=== PATIENT | female | born 1960 | race Caucasian/White ===

== ENCOUNTER 2017-10-05 10:35 | Inpatient (IN) | payer MEDICAID ==
[2017-10-05] VITALS (7 sets, daily range): BP systolic 76–99; BP diastolic 51–62
[~2017-10-05] VITALS: Ht 157.5 cm; Wt 60.0 kg
[~2017-10-05 10:35] MED LIST: ALBU18HF2 INH; ASPI81TA52 PO; ATOR80TA PO; CARV-49 PO; FENO48TA15 PO; FOLIC ACID 1MG PO; LISI-600 PO; MAGN133T PO; MORP10CA11 PO; MYCO250C46 PO; NITR0.4T51 SL; ONDA8TAB6 PO; PANT-47 PO; PRED10TA PO; SULF-14 PO; TACR0.5C20 PO; TACR1CAP28 PO; TAM75C PO; TICA90TA PO; VENL150C2 PO
[2017-10-05] MEDS ORDERED: ipratropium/albuterol 3ml nebule NEB ONE (10:40)
[2017-10-05] MEDS ORDERED: methylPREDNISolone sod succ 125mg/2ml vial IV ONE (10:40)
[2017-10-05 10:57] LABS: BASOPHILS % (AUTO) 0.2 % (0-1); EOSINOPHILS # (AUTO) 0.2 X10'3 (0-0.9); EOSINOPHILS % (AUTO) 1.1 % (0-6); HEMATOCRIT 31.7 % (35.0-45.0); HEMOGLOBIN 10.1 g/dl (12.0-16.0); LYMPHOCYTES # (AUTO) 1.9 X10'3 (1.1-4.8); LYMPHOCYTES % (AUTO) 13.3 % (21-51); MEAN CORPUSCULAR HEMOGLOBIN 27.2 PG (27.0-31.0); MEAN CORPUSCULAR HGB CONC 31.9 % (33.0-36.5); MEAN CORPUSCULAR VOLUME 85.3 FL (78-98); MONOCYTES # (AUTO) 0.4 X10'3 (0-0.9); MONOCYTES % (AUTO) 3.1 % (2-12); NEUTROPHILS # (AUTO) 11.7 X10'3 (1.8-7.7); NEUTROPHILS % (AUTO) 82.3 % (42-75); PLATELET COUNT 376 X10'3 (140-440); RED BLOOD COUNT 3.72 X10'6 (4.20-5.60); RED CELL DISTRIBUTION WIDTH 15.3 % (11.5-14.5); WHITE BLOOD COUNT 14.2 X10'3 (4.5-11.0)
[2017-10-05 11:17] LABS: ALANINE AMINOTRANSFERASE 20 U/L (12-78); ALBUMIN 2.7 G/DL (3.4-5.0); ALBUMIN/GLOBULIN RATIO 0.7 (1.1-1.5); ALKALINE PHOSPHATASE 68 IU/L (46-116); ANION GAP 5 (8-16); ASPARTATE AMINO TRANSFERASE 27 U/L (10-37); BILIRUBIN,TOTAL 0.2 MG/DL (0.1-1.0); BLOOD UREA NITROGEN 22 MG/DL (7-18); CALCIUM 8.9 MG/DL (8.5-10.1); CHLORIDE 100 MMOL/L (99-107); GLUCOSE 250 MG/DL (70-104); MICROCYTOSIS 1+; PLATELET ESTIMATE NORMAL; POTASSIUM 4.9 MMOL/L (3.5-5.1); SODIUM 141 MMOL/L (135-145); TOTAL CARBON DIOXIDE 35.7 MMOL/L (24-32); TOTAL CELLS COUNTED 100; TOTAL PROTEIN 6.7 G/DL (6.4-8.2); eGFR 57 ML/MIN
[2017-10-05 11:20] LABS: PARTIAL THROMBOPLASTIN TIME 23 SECONDS (22-32); PROTHROMBIN TIME 10.1 SECONDS (9.0-12.0)
[2017-10-05 11:31] LABS: ABG BASE EXCESS 7.2 mmol/L (-2.0-3.0); ABG HCO3 34.1 mmol/L (22.0-26.0); ABG OXYGEN SATURATION 97.3 % (95-98); ABG PH (T) 7.358 (7.350-7.450); ABG PO2 (T) 112.6 mmHg (83-108); ALLEN'S TEST Positive; FCOHb 0.3 % (0.5-1.5); FMetHb 0.3 % (0.3-1.12); FO2Hb 96.7 % (94-100); MINUTE VOLUME 11 L/min; RESPIRATORY RATE 14 b/min; TOTAL HEMOGLOBIN 10.2 G/dl (12.0-16.0)
[2017-10-05] MEDS ORDERED: ipratropium/albuterol 3ml nebule NEB PRN (12:10)
[2017-10-05] MEDS ORDERED: potassium Cl 40MEQ/NS 500ml 500 ML IV PRN ×2 (12:10)
[2017-10-05] MEDS ORDERED: potassium Cl 20 mEq SR tablet PO PRN ×2 (12:10)
[2017-10-05] MEDS ORDERED: acetaminophen 325mg tablet PO PRN (12:10)
[2017-10-05] MEDS ORDERED: HYDROcodone/acetaminophen 5mg/325mg tablet PO PRN (12:10)
[2017-10-05] MEDS: normal saline 1000ml 1,000 ML IV SCH (13:55)
[2017-10-05] MEDS: piperacillin/tazo 3.375gm/50ml 50 ML IV SCH ×2 (15:13→20:17)
[2017-10-05] MEDS: ipratropium/albuterol 3ml nebule NEB SCH ×2 (16:04→21:27)
[2017-10-05] MEDS: heparin, porcine 5000 units/ml vial SQ SCH (20:16)
[2017-10-05] MEDS: docusate sod 100mg capsule PO SCH (20:17)
[2017-10-05] MEDS ORDERED: mycophenolate mofetil 250mg capsule PO ONE (21:10)
[2017-10-05] MEDS ORDERED: tacrolimus anhydrous 1mg capsule PO ONE (21:10)
[2017-10-05] MEDS ORDERED: MORPHINE SULFATE PO ONE (21:20)
[2017-10-06] MEDS: piperacillin/tazo 3.375gm/50ml 50 ML IV SCH ×4 (01:33→20:15)
[2017-10-06] MEDS: ipratropium/albuterol 3ml nebule NEB SCH ×4 (02:38→21:29)
[2017-10-06 03:00] VITALS: BP 102/65
[2017-10-06 06:00] VITALS: BP 125/63
[2017-10-06 06:06] LABS: BASOPHILS % (AUTO) 0.2 % (0-1); EOSINOPHILS # (AUTO) 0.1 X10'3 (0-0.9); EOSINOPHILS % (AUTO) 1.2 % (0-6); HEMATOCRIT 24.9 % (35.0-45.0); HEMOGLOBIN 8.1 g/dl (12.0-16.0); LYMPHOCYTES # (AUTO) 1.2 X10'3 (1.1-4.8); LYMPHOCYTES % (AUTO) 13.5 % (21-51); MEAN CORPUSCULAR HEMOGLOBIN 27.5 PG (27.0-31.0); MEAN CORPUSCULAR HGB CONC 32.5 % (33.0-36.5); MEAN CORPUSCULAR VOLUME 84.6 FL (78-98); MEAN PLATELET VOLUME 8.2 FL (7.4-10.4); MONOCYTES # (AUTO) 0.5 X10'3 (0-0.9); MONOCYTES % (AUTO) 5.5 % (2-12); NEUTROPHILS # (AUTO) 6.8 X10'3 (1.8-7.7); NEUTROPHILS % (AUTO) 79.6 % (42-75); PLATELET COUNT 245 X10'3 (140-440); RED BLOOD COUNT 2.94 X10'6 (4.20-5.60); RED CELL DISTRIBUTION WIDTH 15.2 % (11.5-14.5); WHITE BLOOD COUNT 8.6 X10'3 (4.5-11.0)
[2017-10-06 06:26] LABS: ALANINE AMINOTRANSFERASE 22 U/L (12-78); ALBUMIN 2.2 G/DL (3.4-5.0); ALBUMIN/GLOBULIN RATIO 0.7 (1.1-1.5); ALKALINE PHOSPHATASE 44 IU/L (46-116); ANION GAP 6 (8-16); ASPARTATE AMINO TRANSFERASE 20 U/L (10-37); BILIRUBIN,TOTAL 0.3 MG/DL (0.1-1.0); BLOOD UREA NITROGEN 22 MG/DL (7-18); CALCIUM 8.2 MG/DL (8.5-10.1); CHLORIDE 106 MMOL/L (99-107); GLUCOSE 85 MG/DL (70-104); PHOSPHORUS 3.1 MG/DL (2.3-4.5); POTASSIUM 5.2 MMOL/L (3.5-5.1); SODIUM 143 MMOL/L (135-145); TOTAL CARBON DIOXIDE 30.7 MMOL/L (24-32); TOTAL PROTEIN 5.5 G/DL (6.4-8.2); eGFR 51 ML/MIN
[2017-10-06] MEDS: K and/or MAG REPLACEMENT MC SCH (08:00)
[2017-10-06] MEDS: heparin, porcine 5000 units/ml vial SQ SCH ×2 (08:04→20:00)
[2017-10-06] MEDS: mycophenolate mofetil 250mg capsule PO SCH ×2 (08:10→20:15)
[2017-10-06] MEDS: docusate sod 100mg capsule PO SCH ×2 (08:10→20:15)
[2017-10-06] MEDS: tacrolimus anhydrous 1mg capsule PO SCH ×2 (08:10→20:15)
[2017-10-06] MEDS: MORPHINE SULFATE PO SCH ×2 (08:54→20:16)
[2017-10-06] MEDS: normal saline 1000ml 1,000 ML IV SCH (10:29)
[2017-10-06 11:00] VITALS: BP 115/57
[2017-10-06 15:00] VITALS: BP 124/68
[2017-10-06] MEDS ORDERED: ondansetron 4mg rapidly disintigrating tab PO PRN (17:10)
[2017-10-06] MEDS ORDERED: nitroGLYCERIN 0.4mg SUBLingual tab SL PRN (17:10)
[2017-10-06] MEDS: lactobacillus rhamnosus 10,000 MMU CELLS/CAPSULE PO SCH (17:29)
[2017-10-06] MEDS ORDERED: albuterol 2.5 MG/3 ML nebule NEB PRN (17:30)
[2017-10-06] MEDS: MAGNESIUM OXIDE PO SCH ×2 (17:40→20:00)
[2017-10-06] MEDS: MAG AA CHELATE PO SCH ×2 (17:40→20:00)
[2017-10-06 19:00] VITALS: BP 93/76
[2017-10-06] MEDS ORDERED: mycophenolate mofetil 250mg capsule PO SCH (20:00)
[2017-10-06] MEDS ORDERED: tacrolimus anhydrous 1mg capsule PO SCH (20:00)
[2017-10-06] MEDS: carvedilol 6.25mg tablet PO SCH (20:15)
[2017-10-06] MEDS: ticagrelor 90mg tablet PO SCH (20:15)
[2017-10-06 23:00] VITALS: BP 126/70
[2017-10-07] MEDS: piperacillin/tazo 3.375gm/50ml 50 ML IV SCH ×4 (02:40→20:32)
[2017-10-07 03:00] VITALS: BP 114/73
[2017-10-07] MEDS: ipratropium/albuterol 3ml nebule NEB SCH ×6 (03:10→23:42)
[2017-10-07] MEDS: normal saline 1000ml 1,000 ML IV SCH (04:08)
[2017-10-07 06:00] VITALS: BP 142/67
[2017-10-07 06:59] LABS: BASOPHILS % (AUTO) 0.3 % (0-1); EOSINOPHILS # (AUTO) 0.1 X10'3 (0-0.9); EOSINOPHILS % (AUTO) 1.7 % (0-6); HEMOGLOBIN 8.1 g/dl (12.0-16.0); LYMPHOCYTES # (AUTO) 1.2 X10'3 (1.1-4.8); LYMPHOCYTES % (AUTO) 15.1 % (21-51); MEAN CORPUSCULAR HGB CONC 32.4 % (33.0-36.5); MEAN CORPUSCULAR VOLUME 83.3 FL (78-98); MEAN PLATELET VOLUME 8.6 FL (7.4-10.4); MONOCYTES # (AUTO) 0.6 X10'3 (0-0.9); MONOCYTES % (AUTO) 7.3 % (2-12); NEUTROPHILS # (AUTO) 5.8 X10'3 (1.8-7.7); NEUTROPHILS % (AUTO) 75.6 % (42-75); PLATELET COUNT 240 X10'3 (140-440); RED CELL DISTRIBUTION WIDTH 15.1 % (11.5-14.5); WHITE BLOOD COUNT 7.6 X10'3 (4.5-11.0)
[2017-10-07 07:35] LABS: ALANINE AMINOTRANSFERASE 24 U/L (12-78); ALBUMIN 2.3 G/DL (3.4-5.0); ALBUMIN/GLOBULIN RATIO 0.7 (1.1-1.5); ALKALINE PHOSPHATASE 42 IU/L (46-116); ANION GAP 9 (8-16); ASPARTATE AMINO TRANSFERASE 26 U/L (10-37); BILIRUBIN,TOTAL 0.3 MG/DL (0.1-1.0); BLOOD UREA NITROGEN 13 MG/DL (7-18); CALCIUM 8.3 MG/DL (8.5-10.1); CHLORIDE 106 MMOL/L (99-107); GLUCOSE 83 MG/DL (70-104); MAGNESIUM 1.6 MG/DL (1.5-2.4); PHOSPHORUS 1.9 MG/DL (2.3-4.5); POTASSIUM 3.9 MMOL/L (3.5-5.1); SODIUM 142 MMOL/L (135-145); TOTAL CARBON DIOXIDE 27.1 MMOL/L (24-32); TOTAL PROTEIN 5.6 G/DL (6.4-8.2); eGFR 57 ML/MIN
[2017-10-07] MEDS: MAG AA CHELATE PO SCH ×2 (08:00→20:00)
[2017-10-07] MEDS: MAGNESIUM OXIDE PO SCH ×2 (08:00→20:00)
[2017-10-07] MEDS: K and/or MAG REPLACEMENT MC SCH (08:00)
[2017-10-07] MEDS ORDERED: sulfamethoxazole/trimethoprim SS (400mg/80mg) tablet (single-strength) PO SCH (08:00)
[2017-10-07] MEDS: lisinopril 2.5mg tablet PO SCH (08:39)
[2017-10-07] MEDS: lactobacillus rhamnosus 10,000 MMU CELLS/CAPSULE PO SCH ×2 (08:39→17:32)
[2017-10-07] MEDS: docusate sod 100mg capsule PO SCH ×2 (08:39→20:30)
[2017-10-07] MEDS: pantoprazole 40mg Tablet.DR PO SCH (08:39)
[2017-10-07] MEDS: fenofibrate 48mg tablet PO SCH (08:40)
[2017-10-07] MEDS: tacrolimus anhydrous 1mg capsule PO SCH ×2 (08:40→20:31)
[2017-10-07] MEDS: mycophenolate mofetil 250mg capsule PO SCH ×2 (08:40→20:32)
[2017-10-07] MEDS: atorvastatin 20mg tablet PO SCH (08:40)
[2017-10-07] MEDS: venlafaxine XR 75mg capsule (Q24H) PO SCH (08:40)
[2017-10-07] MEDS: ticagrelor 90mg tablet PO SCH ×2 (08:40→20:29)
[2017-10-07] MEDS: carvedilol 6.25mg tablet PO SCH ×2 (08:40→20:30)
[2017-10-07] MEDS: tacrolimus anhydrous 0.5mg capsule PO SCH (08:51)
[2017-10-07] MEDS: ondansetron/PF 4mg/2ml inj IV PRN (08:52)
[2017-10-07] MEDS: sulfamethoxazole/trimethoprim DS (800/160mg) tablet PO SCH (09:36)
[2017-10-07] MEDS: MORPHINE SULFATE PO SCH ×2 (09:36→20:31)
[2017-10-07 11:00] VITALS: BP 120/82
[2017-10-07 15:00] VITALS: BP 106/74
[2017-10-07 19:00] VITALS: BP 137/63
[2017-10-07 23:00] VITALS: BP 98/60
[2017-10-08] MEDS: piperacillin/tazo 3.375gm/50ml 50 ML IV SCH ×4 (02:05→20:48)
[2017-10-08 03:00] VITALS: BP 90/57
[2017-10-08] MEDS: ipratropium/albuterol 3ml nebule NEB SCH ×6 (03:00→23:37)
[2017-10-08] MEDS: normal saline 1000ml 1,000 ML IV SCH (05:38)
[2017-10-08 06:00] VITALS: BP 139/75
[2017-10-08 07:38] LABS: BASOPHILS % (AUTO) 0 % (0-1); EOSINOPHILS # (AUTO) 0.3 X10'3 (0-0.9); EOSINOPHILS % (AUTO) 2.5 % (0-6); HEMATOCRIT 30.7 % (35.0-45.0); HEMOGLOBIN 9.7 g/dl (12.0-16.0); LYMPHOCYTES # (AUTO) 0.9 X10'3 (1.1-4.8); LYMPHOCYTES % (AUTO) 8.2 % (21-51); MEAN CORPUSCULAR HEMOGLOBIN 26.8 PG (27.0-31.0); MEAN CORPUSCULAR HGB CONC 31.5 % (33.0-36.5); MEAN CORPUSCULAR VOLUME 85.1 FL (78-98); MEAN PLATELET VOLUME 8.1 FL (7.4-10.4); MONOCYTES # (AUTO) 0.4 X10'3 (0-0.9); MONOCYTES % (AUTO) 4.1 % (2-12); NEUTROPHILS # (AUTO) 8.8 X10'3 (1.8-7.7); NEUTROPHILS % (AUTO) 85.2 % (42-75); PLATELET COUNT 292 X10'3 (140-440); RED BLOOD COUNT 3.61 X10'6 (4.20-5.60); RED CELL DISTRIBUTION WIDTH 15.1 % (11.5-14.5); WHITE BLOOD COUNT 10.4 X10'3 (4.5-11.0)
[2017-10-08] MEDS: ondansetron/PF 4mg/2ml inj IV PRN (07:43)
[2017-10-08] MEDS: MAG AA CHELATE PO SCH ×2 (08:00→20:00)
[2017-10-08] MEDS: docusate sod 100mg capsule PO SCH ×2 (08:00→20:00)
[2017-10-08] MEDS: MAGNESIUM OXIDE PO SCH ×2 (08:00→20:00)
[2017-10-08] MEDS: K and/or MAG REPLACEMENT MC SCH (08:00)
[2017-10-08 08:04] LABS: ALANINE AMINOTRANSFERASE 27 U/L (12-78); ALBUMIN 2.5 G/DL (3.4-5.0); ALBUMIN/GLOBULIN RATIO 0.7 (1.1-1.5); ALKALINE PHOSPHATASE 47 IU/L (46-116); ANION GAP 7 (8-16); ASPARTATE AMINO TRANSFERASE 29 U/L (10-37); BILIRUBIN,TOTAL 0.3 MG/DL (0.1-1.0); BLOOD UREA NITROGEN 12 MG/DL (7-18); BUN/CREATININE RATIO 13.3 (6.6-38.0); CALCIUM 8.5 MG/DL (8.5-10.1); CHLORIDE 103 MMOL/L (99-107); GLUCOSE 112 MG/DL (70-104); MAGNESIUM 1.7 MG/DL (1.5-2.4); PHOSPHORUS 1.9 MG/DL (2.3-4.5); POTASSIUM 3.4 MMOL/L (3.5-5.1); SODIUM 140 MMOL/L (135-145); TOTAL CARBON DIOXIDE 30.5 MMOL/L (24-32); TOTAL PROTEIN 6.3 G/DL (6.4-8.2); eGFR 64 ML/MIN
[2017-10-08] MEDS: atorvastatin 20mg tablet PO SCH (08:14)
[2017-10-08] MEDS: mycophenolate mofetil 250mg capsule PO SCH ×2 (08:14→20:48)
[2017-10-08] MEDS: carvedilol 6.25mg tablet PO SCH ×2 (08:15→20:48)
[2017-10-08] MEDS: tacrolimus anhydrous 1mg capsule PO SCH ×2 (08:15→20:47)
[2017-10-08] MEDS: tacrolimus anhydrous 0.5mg capsule PO SCH (08:16)
[2017-10-08] MEDS: lactobacillus rhamnosus 10,000 MMU CELLS/CAPSULE PO SCH ×2 (08:17→17:01)
[2017-10-08] MEDS: pantoprazole 40mg Tablet.DR PO SCH (08:18)
[2017-10-08] MEDS: fenofibrate 48mg tablet PO SCH (08:18)
[2017-10-08] MEDS: lisinopril 2.5mg tablet PO SCH (08:19)
[2017-10-08] MEDS: venlafaxine XR 75mg capsule (Q24H) PO SCH (08:20)
[2017-10-08] MEDS: predniSONE 20 mg tablet PO SCH (08:21)
[2017-10-08] MEDS: sulfamethoxazole/trimethoprim DS (800/160mg) tablet PO SCH (08:22)
[2017-10-08] MEDS: MORPHINE SULFATE PO SCH ×2 (08:37→20:49)
[2017-10-08] MEDS: ticagrelor 90mg tablet PO SCH ×2 (08:37→20:48)
[2017-10-08 11:00] VITALS: BP 125/68
[2017-10-08 15:00] VITALS: BP 104/62
[2017-10-08] MEDS ORDERED: potassium Cl 20 mEq SR tablet PO PRN (16:15)
[2017-10-08] MEDS ORDERED: potassium Cl 40MEQ/NS 500ml 500 ML IV PRN ×2 (16:15)
[2017-10-08] MEDS: potassium Cl 20 mEq SR tablet PO PRN ×2 (17:01→20:48)
[2017-10-08] MEDS: Protein Smoothie (high protein) 240ml (8oz) cup PO SCH (17:57)
[2017-10-08 19:00] VITALS: BP 132/72
[2017-10-08 23:00] VITALS: BP 121/73
[2017-10-09] MEDS: normal saline 1000ml 1,000 ML IV SCH (00:26)
[2017-10-09] MEDS: piperacillin/tazo 3.375gm/50ml 50 ML IV SCH ×2 (01:57→08:20)
[2017-10-09 03:00] VITALS: BP 124/74
[2017-10-09] MEDS: ipratropium/albuterol 3ml nebule NEB SCH ×4 (03:00→15:35)
[2017-10-09 05:16] LABS: BASOPHILS % (AUTO) 0.3 % (0-1); EOSINOPHILS # (AUTO) 0.2 X10'3 (0-0.9); EOSINOPHILS % (AUTO) 2.5 % (0-6); HEMATOCRIT 26.9 % (35.0-45.0); HEMOGLOBIN 8.7 g/dl (12.0-16.0); LYMPHOCYTES # (AUTO) 1.3 X10'3 (1.1-4.8); LYMPHOCYTES % (AUTO) 18.9 % (21-51); MEAN CORPUSCULAR HEMOGLOBIN 27.1 PG (27.0-31.0); MEAN CORPUSCULAR HGB CONC 32.3 % (33.0-36.5); MONOCYTES # (AUTO) 0.6 X10'3 (0-0.9); MONOCYTES % (AUTO) 8.8 % (2-12); NEUTROPHILS # (AUTO) 4.8 X10'3 (1.8-7.7); NEUTROPHILS % (AUTO) 69.5 % (42-75); PLATELET COUNT 276 X10'3 (140-440); RED CELL DISTRIBUTION WIDTH 15.2 % (11.5-14.5); WHITE BLOOD COUNT 6.9 X10'3 (4.5-11.0)
[2017-10-09 05:45] LABS: ALANINE AMINOTRANSFERASE 25 U/L (12-78); ALBUMIN 2.4 G/DL (3.4-5.0); ALBUMIN/GLOBULIN RATIO 0.6 (1.1-1.5); ALKALINE PHOSPHATASE 41 IU/L (46-116); ANION GAP 4 (8-16); ASPARTATE AMINO TRANSFERASE 24 U/L (10-37); BILIRUBIN,TOTAL 0.2 MG/DL (0.1-1.0); BLOOD UREA NITROGEN 8 MG/DL (7-18); CALCIUM 8.5 MG/DL (8.5-10.1); CHLORIDE 106 MMOL/L (99-107); GLUCOSE 78 MG/DL (70-104); MAGNESIUM 1.5 MG/DL (1.5-2.4); PHOSPHORUS 1.3 MG/DL (2.3-4.5); POTASSIUM 4.7 MMOL/L (3.5-5.1); SODIUM 141 MMOL/L (135-145); TOTAL CARBON DIOXIDE 30.6 MMOL/L (24-32); TOTAL PROTEIN 6.1 G/DL (6.4-8.2); eGFR 74 ML/MIN
[2017-10-09 07:00] VITALS: BP 132/72
[2017-10-09] MEDS: Protein Smoothie (high protein) 240ml (8oz) cup PO SCH ×2 (08:00→13:00)
[2017-10-09] MEDS: K and/or MAG REPLACEMENT MC SCH (08:00)
[2017-10-09] MEDS: MORPHINE SULFATE PO SCH (08:19)
[2017-10-09] MEDS: tacrolimus anhydrous 0.5mg capsule PO SCH (08:20)
[2017-10-09] MEDS: atorvastatin 20mg tablet PO SCH (08:20)
[2017-10-09] MEDS: sulfamethoxazole/trimethoprim DS (800/160mg) tablet PO SCH (08:20)
[2017-10-09] MEDS: venlafaxine XR 75mg capsule (Q24H) PO SCH (08:20)
[2017-10-09] MEDS: carvedilol 6.25mg tablet PO SCH (08:21)
[2017-10-09] MEDS: pantoprazole 40mg Tablet.DR PO SCH (08:21)
[2017-10-09] MEDS: predniSONE 20 mg tablet PO SCH (08:21)
[2017-10-09] MEDS: lisinopril 2.5mg tablet PO SCH (08:21)
[2017-10-09] MEDS: fenofibrate 48mg tablet PO SCH (08:21)
[2017-10-09] MEDS: mycophenolate mofetil 250mg capsule PO SCH (08:21)
[2017-10-09] MEDS: docusate sod 100mg capsule PO SCH (08:21)
[2017-10-09] MEDS: lactobacillus rhamnosus 10,000 MMU CELLS/CAPSULE PO SCH (08:21)
[2017-10-09] MEDS: ticagrelor 90mg tablet PO SCH (08:21)
[2017-10-09] MEDS: MAG AA CHELATE PO SCH (08:22)
[2017-10-09] MEDS: tacrolimus anhydrous 1mg capsule PO SCH (08:22)
[2017-10-09] MEDS: MAGNESIUM OXIDE PO SCH (08:22)
[2017-10-09 11:00] VITALS: BP 104/68
[2017-10-09 15:00] VITALS: BP 117/65
[2017-10-09] MEDS ORDERED: PRED20TA PO (15:12)
== END 2017-10-09 17:55 | disposition home or self-care (01) | DRG 133 ==
LOC: ER 10:35 → ED HOLD 12:08 → EDBEDREQ 15:53 → PCU 3S 16:30
PROVIDERS: ADMIT Internal Medicine Critical Care Medicine; ATTEND Internal Medicine Critical Care Medicine
PROC: 5A09357 Assistance with Respiratory Ventilation, Less than 24 Consecutive Hours, Continuous Positive Airway Pressure (ICD-10-PCS; principal; 2017-10-05)
DX: J96.20 Acute and chronic respiratory failure, unspecified whether with hypoxia or hypercapnia (principal); J84.10 Pulmonary fibrosis, unspecified; Z94.2 Lung transplant status; J43.9 Emphysema, unspecified; G89.29 Other chronic pain; M54.9 Dorsalgia, unspecified; R04.2 Hemoptysis; I10 Essential (primary) hypertension; I25.10 Atherosclerotic heart disease of native coronary artery without angina pectoris; Z79.82 Long term (current) use of aspirin; Z88.1 Allergy status to other antibiotic agents; Z79.899 Other long term (current) drug therapy; Z98.61 Coronary angioplasty status
CPT/HCPCS: 36415; 36600; 71045; 80053; 82803; 83605; 83735; 83880; 84100; 84145; 84484; 85018; 85025; 85610; 85730; 86885; 86900; 86901; 87040; 87070; 93005; 94640; 94660; 94760; 96374; 97110; 97116; 97161; 97530; 99291; A6212; A6213; J1644; J2405; J2543; J2930; J2997; J7030; J7507; J7512; J7517

== ENCOUNTER 2017-10-11 13:41 | Inpatient (IN) | payer MEDICAID ==
[~2017-10-11] VITALS: Ht 144.8 cm; Wt 30.0 kg
[~2017-10-11 13:41] MED LIST changes: -PRED10TA PO; +PRED20TA PO; -TAM75C PO
[2017-10-11] MEDS ORDERED: methylPREDNISolone sod succ 125mg/2ml vial IV ONE (14:15)
[2017-10-11] MEDS ORDERED: ipratropium/albuterol 3ml nebule NEB ONE (14:15)
[2017-10-11 14:54] LABS: BASOPHILS % (AUTO) 0.1 % (0-1); EOSINOPHILS % (AUTO) 0 % (0-6); HEMATOCRIT 32.7 % (35.0-45.0); HEMOGLOBIN 10.8 g/dl (12.0-16.0); LYMPHOCYTES # (AUTO) 0.7 X10'3 (1.1-4.8); LYMPHOCYTES % (AUTO) 3.2 % (21-51); MEAN CORPUSCULAR HEMOGLOBIN 27.7 PG (27.0-31.0); MEAN CORPUSCULAR HGB CONC 33.1 % (33.0-36.5); MEAN CORPUSCULAR VOLUME 83.7 FL (78-98); MEAN PLATELET VOLUME 8.3 FL (7.4-10.4); MONOCYTES # (AUTO) 0.4 X10'3 (0-0.9); MONOCYTES % (AUTO) 1.8 % (2-12); NEUTROPHILS # (AUTO) 20.8 X10'3 (1.8-7.7); NEUTROPHILS % (AUTO) 94.9 % (42-75); PLATELET COUNT 338 X10'3 (140-440); RED BLOOD COUNT 3.91 X10'6 (4.20-5.60); RED CELL DISTRIBUTION WIDTH 15.9 % (11.5-14.5)
[2017-10-11 15:19] LABS: ALANINE AMINOTRANSFERASE 30 U/L (12-78); ALBUMIN 2.9 G/DL (3.4-5.0); ALBUMIN/GLOBULIN RATIO 0.7 (1.1-1.5); ALKALINE PHOSPHATASE 60 IU/L (46-116); ANION GAP 9 (8-16); ASPARTATE AMINO TRANSFERASE 27 U/L (10-37); BILIRUBIN,TOTAL 0.3 MG/DL (0.1-1.0); BLOOD UREA NITROGEN 16 MG/DL (7-18); BUN/CREATININE RATIO 18.6 (6.6-38.0); CHLORIDE 98 MMOL/L (99-107); CREATININE 0.86 MG/DL (0.40-0.90); GLUCOSE 129 MG/DL (70-104); POTASSIUM 4.4 MMOL/L (3.5-5.1); SODIUM 137 MMOL/L (135-145); TOTAL CARBON DIOXIDE 29.7 MMOL/L (24-32); TOTAL PROTEIN 7.2 G/DL (6.4-8.2); eGFR 68 ML/MIN
[2017-10-11 15:20] LABS: PARTIAL THROMBOPLASTIN TIME 32 SECONDS (22-32); PROTHROMBIN TIME 10.8 SECONDS (9.0-12.0)
[2017-10-11] MEDS ORDERED: IPRA3AMP IH (16:13)
[2017-10-11] MEDS ORDERED: nitroGLYCERIN 0.4mg SUBLingual tab SL PRN (16:25)
[2017-10-11] MEDS ORDERED: ondansetron 4mg rapidly disintigrating tab PO PRN (16:25)
[2017-10-11] MEDS ORDERED: mag hydrox/Alum hydrox/simeth 30ml oral suspension PO PRN (16:30)
[2017-10-11] MEDS ORDERED: ondansetron/PF 4mg/2ml inj IV PRN (16:30)
[2017-10-11] MEDS ORDERED: acetaminophen 325mg tablet PO PRN (16:30)
[2017-10-11] MEDS ORDERED: magnesium hydroxide 30ml (MOM) UD suspension PO PRN (16:30)
[2017-10-11] MEDS ORDERED: levoFLOXACIN-Levaquin 250mg/D5 50 ML IV SCH (16:47)
[2017-10-11] MEDS ORDERED: levoFLOXACIN-Levaquin 250mg/D5 50 ML IV ONE (16:53)
[2017-10-11 17:11] LABS: ABG BASE EXCESS 3.7 mmol/L (-2.0-3.0); ABG HCO3 28.6 mmol/L (22.0-26.0); ABG OXYGEN SATURATION 97.2 % (95-98); ABG PCO2 (T) 44.8 mmHg (32.0-45.0); ABG PH (T) 7.423 (7.350-7.450); ABG PO2 (T) 100.8 mmHg (83-108); FCOHb 0.4 % (0.5-1.5); FLOW 4 L/min; FMetHb 0.3 % (0.3-1.12); FO2Hb 96.5 % (94-100)
[2017-10-11 17:27] LABS: MAGNESIUM 1.6 MG/DL (1.5-2.4); PHOSPHORUS 2.7 MG/DL (2.3-4.5)
[2017-10-11 19:00] VITALS: BP 128/80
[2017-10-11] MEDS ORDERED: MAGNESIUM OXIDE PO SCH (20:00)
[2017-10-11] MEDS ORDERED: MAG AA CHELATE PO SCH (20:00)
[2017-10-11] MEDS: ticagrelor 90mg tablet PO SCH (20:27)
[2017-10-11] MEDS: methylPREDNISolone sod succ/PF 40mg inj. IV SCH (20:27)
[2017-10-11] MEDS: mycophenolate mofetil 250mg capsule PO SCH (20:28)
[2017-10-11] MEDS: carvedilol 6.25mg tablet PO SCH (20:28)
[2017-10-11] MEDS: tacrolimus anhydrous 1mg capsule PO SCH (20:29)
[2017-10-11] MEDS: MORPHINE SULFATE 10 MG PO SCH (20:34)
[2017-10-11 23:00] VITALS: BP 96/62
[2017-10-12 02:00] VITALS: BP 102/66
[2017-10-12 06:00] VITALS: BP 132/76
[2017-10-12] MEDS: levoFLOXACIN-Levaquin 250mg/D5 50 ML IV SCH (08:40)
[2017-10-12] MEDS: methylPREDNISolone sod succ/PF 40mg inj. IV SCH ×2 (08:50→20:30)
[2017-10-12] MEDS: tacrolimus anhydrous 1mg capsule PO SCH ×2 (08:51→20:30)
[2017-10-12] MEDS: venlafaxine XR 75mg capsule (Q24H) PO SCH (08:51)
[2017-10-12] MEDS: tacrolimus anhydrous 0.5mg capsule PO SCH (08:51)
[2017-10-12] MEDS: atorvastatin 20mg tablet PO SCH (08:51)
[2017-10-12] MEDS: mycophenolate mofetil 250mg capsule PO SCH ×2 (08:52→20:30)
[2017-10-12] MEDS: ticagrelor 90mg tablet PO SCH ×2 (08:52→20:29)
[2017-10-12] MEDS: lisinopril 2.5mg tablet PO SCH (08:52)
[2017-10-12] MEDS: carvedilol 6.25mg tablet PO SCH ×2 (08:52→20:33)
[2017-10-12] MEDS: aspirin 81mg tablet.DR PO SCH (08:52)
[2017-10-12] MEDS: fenofibrate 48mg tablet PO SCH (08:53)
[2017-10-12] MEDS: MORPHINE SULFATE 10 MG PO SCH ×2 (08:53→20:31)
[2017-10-12] MEDS: pantoprazole 40mg Tablet.DR PO SCH (08:53)
[2017-10-12] MEDS: albuterol 2.5 MG/3 ML nebule NEB PRN ×3 (09:02→20:37)
[2017-10-12 09:30] LABS: BASOPHILS % (AUTO) 0 % (0-1); EOSINOPHILS # (AUTO) 0.1 X10'3 (0-0.9); EOSINOPHILS % (AUTO) 0.8 % (0-6); HEMATOCRIT 30.1 % (35.0-45.0); HEMOGLOBIN 9.8 g/dl (12.0-16.0); LYMPHOCYTES # (AUTO) 0.9 X10'3 (1.1-4.8); LYMPHOCYTES % (AUTO) 7.7 % (21-51); MEAN CORPUSCULAR HEMOGLOBIN 27.6 PG (27.0-31.0); MEAN CORPUSCULAR HGB CONC 32.6 % (33.0-36.5); MEAN CORPUSCULAR VOLUME 84.7 FL (78-98); MEAN PLATELET VOLUME 9.1 FL (7.4-10.4); MONOCYTES # (AUTO) 0.3 X10'3 (0-0.9); MONOCYTES % (AUTO) 2.2 % (2-12); NEUTROPHILS # (AUTO) 10.7 X10'3 (1.8-7.7); NEUTROPHILS % (AUTO) 89.3 % (42-75); PLATELET COUNT 385 X10'3 (140-440); RED BLOOD COUNT 3.56 X10'6 (4.20-5.60); RED CELL DISTRIBUTION WIDTH 15.6 % (11.5-14.5)
[2017-10-12 10:15] LABS: ALANINE AMINOTRANSFERASE 32 U/L (12-78); ALBUMIN 2.8 G/DL (3.4-5.0); ALBUMIN/GLOBULIN RATIO 0.6 (1.1-1.5); ALKALINE PHOSPHATASE 62 IU/L (46-116); BILIRUBIN,TOTAL 0.3 MG/DL (0.1-1.0); BLOOD UREA NITROGEN 28 MG/DL (7-18); BUN/CREATININE RATIO 24.3 (6.6-38.0); CALCIUM 9.1 MG/DL (8.5-10.1); CHLORIDE 99 MMOL/L (99-107); CREATININE 1.15 MG/DL (0.40-0.90); GLUCOSE 190 MG/DL (70-104); TOTAL CARBON DIOXIDE 33.6 MMOL/L (24-32); TOTAL PROTEIN 7.3 G/DL (6.4-8.2); eGFR 48 ML/MIN
[2017-10-12 10:16] LABS: ANION GAP 6 (8-16); ASPARTATE AMINO TRANSFERASE 26 U/L (10-37); POTASSIUM 4.7 MMOL/L (3.5-5.1); SODIUM 139 MMOL/L (135-145)
[2017-10-12 11:00] VITALS: BP 111/69
[2017-10-12] MEDS: Protein Shake (high protein) 240ml (8oz) cup PO SCH ×2 (13:00→18:00)
[2017-10-12] MEDS: gabapentin 300mg capsule PO SCH ×2 (14:27→20:30)
[2017-10-12 15:00] VITALS: BP 96/63
[2017-10-12] MEDS: lactobacillus rhamnosus 10,000 MMU CELLS/CAPSULE PO SCH (17:25)
[2017-10-12 19:00] VITALS: BP 121/67
[2017-10-12] MEDS: valacyclovir 500mg tablet PO SCH (20:48)
[2017-10-12 23:00] VITALS: BP 128/65
[2017-10-13 03:00] VITALS: BP 111/71
[2017-10-13] MEDS: albuterol 2.5 MG/3 ML nebule NEB PRN ×2 (03:04→16:39)
[2017-10-13 06:00] VITALS: BP 111/67
[2017-10-13] MEDS: levoFLOXACIN-Levaquin 250mg/D5 50 ML IV SCH (08:33)
[2017-10-13] MEDS: methylPREDNISolone sod succ/PF 40mg inj. IV SCH ×2 (08:35→19:39)
[2017-10-13] MEDS: Protein Shake (high protein) 240ml (8oz) cup PO SCH ×3 (08:35→18:00)
[2017-10-13] MEDS: fenofibrate 48mg tablet PO SCH (08:42)
[2017-10-13] MEDS: MORPHINE SULFATE 10 MG PO SCH ×2 (08:42→19:49)
[2017-10-13] MEDS: venlafaxine XR 75mg capsule (Q24H) PO SCH (08:43)
[2017-10-13] MEDS: ticagrelor 90mg tablet PO SCH ×2 (08:43→19:39)
[2017-10-13] MEDS: lactobacillus rhamnosus 10,000 MMU CELLS/CAPSULE PO SCH (08:43)
[2017-10-13] MEDS: tacrolimus anhydrous 0.5mg capsule PO SCH (08:43)
[2017-10-13] MEDS: atorvastatin 20mg tablet PO SCH (08:43)
[2017-10-13] MEDS: aspirin 81mg tablet.DR PO SCH (08:43)
[2017-10-13] MEDS: pantoprazole 40mg Tablet.DR PO SCH (08:43)
[2017-10-13] MEDS: valacyclovir 500mg tablet PO SCH ×2 (08:43→19:38)
[2017-10-13] MEDS: mycophenolate mofetil 250mg capsule PO SCH ×2 (08:43→19:39)
[2017-10-13] MEDS: gabapentin 300mg capsule PO SCH ×2 (08:43→19:36)
[2017-10-13] MEDS: tacrolimus anhydrous 1mg capsule PO SCH ×2 (08:44→19:38)
[2017-10-13] MEDS: lisinopril 2.5mg tablet PO SCH (08:44)
[2017-10-13] MEDS: carvedilol 6.25mg tablet PO SCH ×2 (08:44→19:39)
[2017-10-13 09:50] LABS: BASOPHILS % (AUTO) 0 % (0-1); EOSINOPHILS # (AUTO) 0.2 X10'3 (0-0.9); EOSINOPHILS % (AUTO) 1.2 % (0-6); HEMOGLOBIN 8.9 g/dl (12.0-16.0); LYMPHOCYTES # (AUTO) 0.8 X10'3 (1.1-4.8); LYMPHOCYTES % (AUTO) 4.4 % (21-51); MEAN CORPUSCULAR HEMOGLOBIN 27.7 PG (27.0-31.0); MEAN CORPUSCULAR HGB CONC 33.1 % (33.0-36.5); MEAN CORPUSCULAR VOLUME 83.8 FL (78-98); MEAN PLATELET VOLUME 8.6 FL (7.4-10.4); MONOCYTES # (AUTO) 0.6 X10'3 (0-0.9); MONOCYTES % (AUTO) 3.1 % (2-12); NEUTROPHILS # (AUTO) 17.1 X10'3 (1.8-7.7); NEUTROPHILS % (AUTO) 91.3 % (42-75); PLATELET COUNT 329 X10'3 (140-440); RED BLOOD COUNT 3.22 X10'6 (4.20-5.60); RED CELL DISTRIBUTION WIDTH 16.1 % (11.5-14.5); WHITE BLOOD COUNT 18.8 X10'3 (4.5-11.0)
[2017-10-13 10:01] LABS: ALANINE AMINOTRANSFERASE 23 U/L (12-78); ALBUMIN 2.6 G/DL (3.4-5.0); ALBUMIN/GLOBULIN RATIO 0.7 (1.1-1.5); ALKALINE PHOSPHATASE 51 IU/L (46-116); ANION GAP 5 (8-16); ASPARTATE AMINO TRANSFERASE 21 U/L (10-37); BILIRUBIN,TOTAL 0.1 MG/DL (0.1-1.0); BLOOD UREA NITROGEN 33 MG/DL (7-18); BUN/CREATININE RATIO 33.3 (6.6-38.0); CALCIUM 9.2 MG/DL (8.5-10.1); CHLORIDE 102 MMOL/L (99-107); CREATININE 0.99 MG/DL (0.40-0.90); GLUCOSE 134 MG/DL (70-104); POTASSIUM 5.1 MMOL/L (3.5-5.1); SODIUM 140 MMOL/L (135-145); TOTAL CARBON DIOXIDE 32.6 MMOL/L (24-32); TOTAL PROTEIN 6.6 G/DL (6.4-8.2); eGFR 58 ML/MIN
[2017-10-13 15:00] VITALS: BP 92/55
[2017-10-13 19:00] VITALS: BP 130/73
[2017-10-13 23:00] VITALS: BP 135/75
[2017-10-14 03:00] VITALS: BP 126/77
[2017-10-14 05:32] LABS: BASOPHILS % (AUTO) 0.1 % (0-1); EOSINOPHILS # (AUTO) 0.2 X10'3 (0-0.9); EOSINOPHILS % (AUTO) 1.2 % (0-6); HEMATOCRIT 25.9 % (35.0-45.0); HEMOGLOBIN 8.6 g/dl (12.0-16.0); LYMPHOCYTES # (AUTO) 0.8 X10'3 (1.1-4.8); LYMPHOCYTES % (AUTO) 5.7 % (21-51); MEAN CORPUSCULAR HEMOGLOBIN 27.8 PG (27.0-31.0); MEAN CORPUSCULAR HGB CONC 33.3 % (33.0-36.5); MEAN CORPUSCULAR VOLUME 83.3 FL (78-98); MEAN PLATELET VOLUME 8.2 FL (7.4-10.4); MONOCYTES # (AUTO) 0.6 X10'3 (0-0.9); MONOCYTES % (AUTO) 3.9 % (2-12); NEUTROPHILS # (AUTO) 12.6 X10'3 (1.8-7.7); NEUTROPHILS % (AUTO) 89.1 % (42-75); PLATELET COUNT 349 X10'3 (140-440); RED BLOOD COUNT 3.11 X10'6 (4.20-5.60); RED CELL DISTRIBUTION WIDTH 15.7 % (11.5-14.5); WHITE BLOOD COUNT 14.1 X10'3 (4.5-11.0)
[2017-10-14 06:26] LABS: ALANINE AMINOTRANSFERASE 21 U/L (12-78); ALBUMIN 2.6 G/DL (3.4-5.0); ALBUMIN/GLOBULIN RATIO 0.7 (1.1-1.5); ALKALINE PHOSPHATASE 54 IU/L (46-116); ANION GAP 2 (8-16); ASPARTATE AMINO TRANSFERASE 20 U/L (10-37); BILIRUBIN,TOTAL 0.1 MG/DL (0.1-1.0); BLOOD UREA NITROGEN 28 MG/DL (7-18); CALCIUM 9.5 MG/DL (8.5-10.1); CHLORIDE 102 MMOL/L (99-107); GLUCOSE 119 MG/DL (70-104); POTASSIUM 5.5 MMOL/L (3.5-5.1); SODIUM 140 MMOL/L (135-145); TOTAL CARBON DIOXIDE 36.1 MMOL/L (24-32); TOTAL PROTEIN 6.6 G/DL (6.4-8.2); eGFR 74 ML/MIN
[2017-10-14 07:00] VITALS: BP 133/80
[2017-10-14] MEDS: aspirin 81mg tablet.DR PO SCH (08:14)
[2017-10-14] MEDS: fenofibrate 48mg tablet PO SCH (08:14)
[2017-10-14] MEDS: atorvastatin 20mg tablet PO SCH (08:14)
[2017-10-14] MEDS: lisinopril 2.5mg tablet PO SCH (08:14)
[2017-10-14] MEDS: gabapentin 300mg capsule PO SCH ×2 (08:14→20:02)
[2017-10-14] MEDS: carvedilol 6.25mg tablet PO SCH ×2 (08:15→20:02)
[2017-10-14] MEDS: ticagrelor 90mg tablet PO SCH ×2 (08:15→20:02)
[2017-10-14] MEDS: pantoprazole 40mg Tablet.DR PO SCH (08:15)
[2017-10-14] MEDS: valacyclovir 500mg tablet PO SCH ×2 (08:15→20:02)
[2017-10-14] MEDS: MORPHINE SULFATE 10 MG PO SCH ×2 (08:16→20:03)
[2017-10-14] MEDS: methylPREDNISolone sod succ/PF 40mg inj. IV SCH ×2 (08:16→20:02)
[2017-10-14] MEDS: levoFLOXACIN-Levaquin 250mg/D5 50 ML IV SCH (08:17)
[2017-10-14] MEDS: tacrolimus anhydrous 1mg capsule PO SCH ×2 (08:34→20:02)
[2017-10-14] MEDS: venlafaxine XR 75mg capsule (Q24H) PO SCH (08:34)
[2017-10-14] MEDS: Protein Shake (high protein) 240ml (8oz) cup PO SCH ×2 (08:36→17:00)
[2017-10-14] MEDS: tacrolimus anhydrous 0.5mg capsule PO SCH (08:39)
[2017-10-14] MEDS ORDERED: sodium polystyrene sulfonate 15gm/60ml oral suspension PO ONE (09:25)
[2017-10-14] MEDS: mycophenolate mofetil 250mg capsule PO SCH ×2 (10:19→20:02)
[2017-10-14] MEDS: albuterol 2.5 MG/3 ML nebule NEB PRN (10:19)
[2017-10-14 11:00] VITALS: BP 114/74
[2017-10-14] MEDS: albuterol 2.5 MG/3 ML nebule NEB SCH ×4 (13:30→23:14)
[2017-10-14 15:00] VITALS: BP 116/73
[2017-10-14] MEDS ORDERED: sulfamethoxazole/trimethoprim SS (400mg/80mg) tablet (single-strength) PO SCH (17:10)
[2017-10-14 19:00] VITALS: BP 120/71
[2017-10-14 23:00] VITALS: BP 125/79
[2017-10-15 03:00] VITALS: BP 157/78
[2017-10-15] MEDS: albuterol 2.5 MG/3 ML nebule NEB SCH (06:55)
[2017-10-15 07:00] VITALS: BP 136/81
[2017-10-15 07:21] LABS: BASOPHILS % (AUTO) 0.2 % (0-1); EOSINOPHILS # (AUTO) 0.2 X10'3 (0-0.9); EOSINOPHILS % (AUTO) 1.6 % (0-6); HEMATOCRIT 28.9 % (35.0-45.0); HEMOGLOBIN 9.5 g/dl (12.0-16.0); LYMPHOCYTES % (AUTO) 8.5 % (21-51); MEAN CORPUSCULAR HEMOGLOBIN 27.7 PG (27.0-31.0); MEAN CORPUSCULAR HGB CONC 32.8 % (33.0-36.5); MEAN CORPUSCULAR VOLUME 84.5 FL (78-98); MONOCYTES # (AUTO) 0.9 X10'3 (0-0.9); MONOCYTES % (AUTO) 7.1 % (2-12); NEUTROPHILS % (AUTO) 82.6 % (42-75); PLATELET COUNT 375 X10'3 (140-440); RED BLOOD COUNT 3.43 X10'6 (4.20-5.60); RED CELL DISTRIBUTION WIDTH 16.2 % (11.5-14.5); WHITE BLOOD COUNT 12.1 X10'3 (4.5-11.0)
[2017-10-15 07:35] LABS: ALANINE AMINOTRANSFERASE 25 U/L (12-78); ALBUMIN 2.7 G/DL (3.4-5.0); ALBUMIN/GLOBULIN RATIO 0.7 (1.1-1.5); ALKALINE PHOSPHATASE 57 IU/L (46-116); ANION GAP 4 (8-16); ASPARTATE AMINO TRANSFERASE 17 U/L (10-37); BILIRUBIN,TOTAL 0.2 MG/DL (0.1-1.0); BLOOD UREA NITROGEN 27 MG/DL (7-18); BUN/CREATININE RATIO 30.3 (6.6-38.0); CALCIUM 8.9 MG/DL (8.5-10.1); CHLORIDE 101 MMOL/L (99-107); CREATININE 0.89 MG/DL (0.40-0.90); GLUCOSE 85 MG/DL (70-104); POTASSIUM 4.4 MMOL/L (3.5-5.1); SODIUM 143 MMOL/L (135-145); TOTAL CARBON DIOXIDE 37.9 MMOL/L (24-32); TOTAL PROTEIN 6.6 G/DL (6.4-8.2); eGFR 65 ML/MIN
[2017-10-15] MEDS: levoFLOXACIN-Levaquin 250mg/D5 50 ML IV SCH (07:45)
[2017-10-15] MEDS: methylPREDNISolone sod succ/PF 40mg inj. IV SCH ×2 (07:45→20:17)
[2017-10-15] MEDS: gabapentin 300mg capsule PO SCH ×2 (07:46→20:16)
[2017-10-15] MEDS: lisinopril 2.5mg tablet PO SCH (07:46)
[2017-10-15] MEDS: tacrolimus anhydrous 0.5mg capsule PO SCH (07:46)
[2017-10-15] MEDS: ticagrelor 90mg tablet PO SCH ×2 (07:46→20:16)
[2017-10-15] MEDS: valacyclovir 500mg tablet PO SCH ×2 (07:46→20:16)
[2017-10-15] MEDS: tacrolimus anhydrous 1mg capsule PO SCH ×2 (07:46→20:16)
[2017-10-15] MEDS: carvedilol 6.25mg tablet PO SCH ×2 (07:46→20:16)
[2017-10-15] MEDS: pantoprazole 40mg Tablet.DR PO SCH (07:46)
[2017-10-15] MEDS: aspirin 81mg tablet.DR PO SCH (07:46)
[2017-10-15] MEDS: atorvastatin 20mg tablet PO SCH (07:46)
[2017-10-15] MEDS: Protein Shake (high protein) 240ml (8oz) cup PO SCH ×3 (07:47→18:00)
[2017-10-15] MEDS: venlafaxine XR 75mg capsule (Q24H) PO SCH (07:47)
[2017-10-15] MEDS: mycophenolate mofetil 250mg capsule PO SCH ×2 (07:47→20:16)
[2017-10-15] MEDS: fenofibrate 48mg tablet PO SCH (07:49)
[2017-10-15] MEDS: MORPHINE SULFATE 10 MG PO SCH ×2 (08:41→20:17)
[2017-10-15] MEDS: sulfamethoxazole/trimethoprim DS (800/160mg) tablet PO SCH (08:42)
[2017-10-15 11:00] VITALS: BP 102/65
[2017-10-15] MEDS: ipratropium/albuterol 3ml nebule NEB SCH ×3 (11:09→20:53)
[2017-10-15 15:00] VITALS: BP 129/72
[2017-10-15] MEDS: lactobacillus rhamnosus 10,000 MMU CELLS/CAPSULE PO SCH (16:54)
[2017-10-15 19:00] VITALS: BP 164/89
[2017-10-15 23:00] VITALS: BP 128/77
[2017-10-16 03:00] VITALS: BP 122/77
[2017-10-16 05:05] LABS: BASOPHILS % (AUTO) 0 % (0-1); EOSINOPHILS % (AUTO) 0.2 % (0-6); HEMOGLOBIN 8.9 g/dl (12.0-16.0); LYMPHOCYTES # (AUTO) 1.1 X10'3 (1.1-4.8); MEAN CORPUSCULAR HEMOGLOBIN 27.8 PG (27.0-31.0); MEAN CORPUSCULAR HGB CONC 32.9 % (33.0-36.5); MEAN CORPUSCULAR VOLUME 84.4 FL (78-98); MEAN PLATELET VOLUME 8.4 FL (7.4-10.4); MONOCYTES # (AUTO) 0.4 X10'3 (0-0.9); MONOCYTES % (AUTO) 3.1 % (2-12); NEUTROPHILS # (AUTO) 12.8 X10'3 (1.8-7.7); NEUTROPHILS % (AUTO) 88.7 % (42-75); PLATELET COUNT 347 X10'3 (140-440); RED BLOOD COUNT 3.19 X10'6 (4.20-5.60); RED CELL DISTRIBUTION WIDTH 15.7 % (11.5-14.5); WHITE BLOOD COUNT 14.4 X10'3 (4.5-11.0)
[2017-10-16 05:33] LABS: ALANINE AMINOTRANSFERASE 18 U/L (12-78); ALBUMIN 2.5 G/DL (3.4-5.0); ALBUMIN/GLOBULIN RATIO 0.7 (1.1-1.5); ALKALINE PHOSPHATASE 57 IU/L (46-116); ANION GAP 5 (8-16); ASPARTATE AMINO TRANSFERASE 18 U/L (10-37); BILIRUBIN,TOTAL 0.1 MG/DL (0.1-1.0); BLOOD UREA NITROGEN 23 MG/DL (7-18); BUN/CREATININE RATIO 29.5 (6.6-38.0); CALCIUM 9.1 MG/DL (8.5-10.1); CHLORIDE 99 MMOL/L (99-107); CREATININE 0.78 MG/DL (0.40-0.90); GLUCOSE 177 MG/DL (70-104); POTASSIUM 4.6 MMOL/L (3.5-5.1); SODIUM 138 MMOL/L (135-145); TOTAL CARBON DIOXIDE 34.5 MMOL/L (24-32); TOTAL PROTEIN 6.2 G/DL (6.4-8.2); eGFR 76 ML/MIN
[2017-10-16 07:00] VITALS: BP 112/75
[2017-10-16] MEDS: lactobacillus rhamnosus 10,000 MMU CELLS/CAPSULE PO SCH ×2 (08:02→17:50)
[2017-10-16] MEDS: ticagrelor 90mg tablet PO SCH ×2 (08:02→19:40)
[2017-10-16] MEDS: mycophenolate mofetil 250mg capsule PO SCH ×2 (08:02→19:41)
[2017-10-16] MEDS: fenofibrate 48mg tablet PO SCH (08:02)
[2017-10-16] MEDS: lisinopril 2.5mg tablet PO SCH (08:02)
[2017-10-16] MEDS: tacrolimus anhydrous 0.5mg capsule PO SCH (08:03)
[2017-10-16] MEDS: tacrolimus anhydrous 1mg capsule PO SCH ×2 (08:03→19:40)
[2017-10-16] MEDS: gabapentin 300mg capsule PO SCH ×2 (08:03→19:40)
[2017-10-16] MEDS: venlafaxine XR 75mg capsule (Q24H) PO SCH (08:03)
[2017-10-16] MEDS: aspirin 81mg tablet.DR PO SCH (08:03)
[2017-10-16] MEDS: pantoprazole 40mg Tablet.DR PO SCH (08:04)
[2017-10-16] MEDS: methylPREDNISolone sod succ/PF 40mg inj. IV SCH ×2 (08:04→19:40)
[2017-10-16] MEDS: valacyclovir 500mg tablet PO SCH ×2 (08:04→19:40)
[2017-10-16] MEDS: atorvastatin 20mg tablet PO SCH (08:04)
[2017-10-16] MEDS: MORPHINE SULFATE 10 MG PO SCH ×2 (08:05→19:41)
[2017-10-16] MEDS: levoFLOXACIN-Levaquin 250mg/D5 50 ML IV SCH (08:07)
[2017-10-16] MEDS: carvedilol 6.25mg tablet PO SCH ×2 (08:07→19:40)
[2017-10-16] MEDS: ipratropium/albuterol 3ml nebule NEB SCH ×3 (08:26→20:17)
[2017-10-16] MEDS: Protein Shake (high protein) 240ml (8oz) cup PO SCH ×3 (08:34→18:46)
[2017-10-16] MEDS: sulfamethoxazole/trimethoprim DS (800/160mg) tablet PO SCH (08:36)
[2017-10-16 11:00] VITALS: BP 123/74
[2017-10-16 15:00] VITALS: BP 131/67
[2017-10-16 19:00] VITALS: BP 138/80
[2017-10-16 23:00] VITALS: BP 110/60
[2017-10-17 03:00] VITALS: BP 104/52
[2017-10-17 05:16] LABS: BASOPHILS % (AUTO) 0 % (0-1); EOSINOPHILS # (AUTO) 0.3 X10'3 (0-0.9); EOSINOPHILS % (AUTO) 1.5 % (0-6); HEMATOCRIT 27.8 % (35.0-45.0); HEMOGLOBIN 9.2 g/dl (12.0-16.0); LYMPHOCYTES # (AUTO) 1.7 X10'3 (1.1-4.8); LYMPHOCYTES % (AUTO) 9.1 % (21-51); MEAN CORPUSCULAR VOLUME 84.7 FL (78-98); MEAN PLATELET VOLUME 8.1 FL (7.4-10.4); MONOCYTES # (AUTO) 0.7 X10'3 (0-0.9); NEUTROPHILS # (AUTO) 15.5 X10'3 (1.8-7.7); NEUTROPHILS % (AUTO) 85.4 % (42-75); PLATELET COUNT 378 X10'3 (140-440); RED BLOOD COUNT 3.29 X10'6 (4.20-5.60); RED CELL DISTRIBUTION WIDTH 15.8 % (11.5-14.5); WHITE BLOOD COUNT 18.1 X10'3 (4.5-11.0)
[2017-10-17 05:57] LABS: ALANINE AMINOTRANSFERASE 18 U/L (12-78); ALBUMIN 2.5 G/DL (3.4-5.0); ALBUMIN/GLOBULIN RATIO 0.7 (1.1-1.5); ALKALINE PHOSPHATASE 57 IU/L (46-116); ANION GAP 6 (8-16); ASPARTATE AMINO TRANSFERASE 18 U/L (10-37); BILIRUBIN,TOTAL 0.1 MG/DL (0.1-1.0); BLOOD UREA NITROGEN 25 MG/DL (7-18); BUN/CREATININE RATIO 32.1 (6.6-38.0); CALCIUM 9.3 MG/DL (8.5-10.1); CHLORIDE 96 MMOL/L (99-107); CREATININE 0.78 MG/DL (0.40-0.90); GLUCOSE 120 MG/DL (70-104); POTASSIUM 4.4 MMOL/L (3.5-5.1); SODIUM 135 MMOL/L (135-145); TOTAL CARBON DIOXIDE 33.3 MMOL/L (24-32); TOTAL PROTEIN 6.1 G/DL (6.4-8.2); eGFR 76 ML/MIN
[2017-10-17 07:00] VITALS: BP 110/72
[2017-10-17] MEDS: valacyclovir 500mg tablet PO SCH ×2 (08:30→21:13)
[2017-10-17] MEDS: gabapentin 300mg capsule PO SCH ×2 (08:30→21:14)
[2017-10-17] MEDS: atorvastatin 20mg tablet PO SCH (08:30)
[2017-10-17] MEDS: tacrolimus anhydrous 1mg capsule PO SCH ×2 (08:30→21:12)
[2017-10-17] MEDS: ticagrelor 90mg tablet PO SCH ×2 (08:30→21:14)
[2017-10-17] MEDS: tacrolimus anhydrous 0.5mg capsule PO SCH (08:30)
[2017-10-17] MEDS: fenofibrate 48mg tablet PO SCH (08:30)
[2017-10-17] MEDS: pantoprazole 40mg Tablet.DR PO SCH (08:30)
[2017-10-17] MEDS: sulfamethoxazole/trimethoprim DS (800/160mg) tablet PO SCH (08:30)
[2017-10-17] MEDS: MORPHINE SULFATE 10 MG PO SCH ×2 (08:30→21:14)
[2017-10-17] MEDS: venlafaxine XR 75mg capsule (Q24H) PO SCH (08:31)
[2017-10-17] MEDS: lisinopril 2.5mg tablet PO SCH (08:31)
[2017-10-17] MEDS: levoFLOXACIN-Levaquin 250mg/D5 50 ML IV SCH (08:31)
[2017-10-17] MEDS: lactobacillus rhamnosus 10,000 MMU CELLS/CAPSULE PO SCH ×2 (08:31→17:30)
[2017-10-17] MEDS: aspirin 81mg tablet.DR PO SCH (08:31)
[2017-10-17] MEDS: predniSONE 20 mg tablet PO SCH (08:31)
[2017-10-17] MEDS: carvedilol 6.25mg tablet PO SCH ×2 (08:31→21:13)
[2017-10-17] MEDS: mycophenolate mofetil 250mg capsule PO SCH ×2 (08:47→21:14)
[2017-10-17] MEDS: Protein Shake (high protein) 240ml (8oz) cup PO SCH ×3 (08:47→14:10)
[2017-10-17] MEDS: ipratropium/albuterol 3ml nebule NEB SCH ×3 (10:05→20:39)
[2017-10-17 11:00] VITALS: BP 104/70
[2017-10-17 15:00] VITALS: BP 115/59
[2017-10-17 18:00] VITALS: BP 109/68
[2017-10-17 22:00] VITALS: BP 103/58
[2017-10-18 02:00] VITALS: BP 98/52
[2017-10-18 05:38] LABS: BASOPHILS % (AUTO) 0.1 % (0-1); EOSINOPHILS % (AUTO) 0 % (0-6); HEMATOCRIT 28.9 % (35.0-45.0); HEMOGLOBIN 9.6 g/dl (12.0-16.0); LYMPHOCYTES # (AUTO) 2.3 X10'3 (1.1-4.8); LYMPHOCYTES % (AUTO) 12.1 % (21-51); MEAN CORPUSCULAR HEMOGLOBIN 27.9 PG (27.0-31.0); MEAN CORPUSCULAR HGB CONC 33.1 % (33.0-36.5); MEAN CORPUSCULAR VOLUME 84.3 FL (78-98); MEAN PLATELET VOLUME 8.3 FL (7.4-10.4); MONOCYTES % (AUTO) 5.3 % (2-12); NEUTROPHILS # (AUTO) 15.8 X10'3 (1.8-7.7); NEUTROPHILS % (AUTO) 82.5 % (42-75); PLATELET COUNT 395 X10'3 (140-440); RED BLOOD COUNT 3.43 X10'6 (4.20-5.60); RED CELL DISTRIBUTION WIDTH 15.4 % (11.5-14.5); WHITE BLOOD COUNT 19.2 X10'3 (4.5-11.0)
[2017-10-18 06:08] LABS: ALANINE AMINOTRANSFERASE 24 U/L (12-78); ALBUMIN 2.5 G/DL (3.4-5.0); ALBUMIN/GLOBULIN RATIO 0.7 (1.1-1.5); ALKALINE PHOSPHATASE 56 IU/L (46-116); ANION GAP 3 (8-16); ASPARTATE AMINO TRANSFERASE 19 U/L (10-37); BILIRUBIN,TOTAL 0.2 MG/DL (0.1-1.0); BLOOD UREA NITROGEN 29 MG/DL (7-18); BUN/CREATININE RATIO 31.9 (6.6-38.0); CALCIUM 9.1 MG/DL (8.5-10.1); CHLORIDE 95 MMOL/L (99-107); CREATININE 0.91 MG/DL (0.40-0.90); GLUCOSE 83 MG/DL (70-104); POTASSIUM 4.9 MMOL/L (3.5-5.1); SODIUM 134 MMOL/L (135-145); TOTAL CARBON DIOXIDE 36.1 MMOL/L (24-32); eGFR 63 ML/MIN
[2017-10-18 07:00] VITALS: BP 106/62
[2017-10-18] MEDS: ipratropium/albuterol 3ml nebule NEB SCH ×3 (08:25→20:26)
[2017-10-18] MEDS: lisinopril 2.5mg tablet PO SCH (08:49)
[2017-10-18] MEDS: sulfamethoxazole/trimethoprim DS (800/160mg) tablet PO SCH (08:49)
[2017-10-18] MEDS: MORPHINE SULFATE 10 MG PO SCH ×2 (08:49→20:44)
[2017-10-18] MEDS: tacrolimus anhydrous 1mg capsule PO SCH ×2 (08:49→19:34)
[2017-10-18] MEDS: predniSONE 20 mg tablet PO SCH (08:50)
[2017-10-18] MEDS: pantoprazole 40mg Tablet.DR PO SCH (08:50)
[2017-10-18] MEDS: levoFLOXACIN-Levaquin 250mg/D5 50 ML IV SCH (08:50)
[2017-10-18] MEDS: atorvastatin 20mg tablet PO SCH (08:50)
[2017-10-18] MEDS: valacyclovir 500mg tablet PO SCH ×2 (08:50→19:33)
[2017-10-18] MEDS: gabapentin 300mg capsule PO SCH ×2 (08:50→19:33)
[2017-10-18] MEDS: aspirin 81mg tablet.DR PO SCH (08:50)
[2017-10-18] MEDS: ticagrelor 90mg tablet PO SCH ×2 (08:50→19:33)
[2017-10-18] MEDS: mycophenolate mofetil 250mg capsule PO SCH ×2 (08:50→19:33)
[2017-10-18] MEDS: tacrolimus anhydrous 0.5mg capsule PO SCH (08:50)
[2017-10-18] MEDS: fenofibrate 48mg tablet PO SCH (08:50)
[2017-10-18] MEDS: lactobacillus rhamnosus 10,000 MMU CELLS/CAPSULE PO SCH ×2 (08:50→17:22)
[2017-10-18] MEDS: carvedilol 6.25mg tablet PO SCH ×2 (08:50→19:34)
[2017-10-18] MEDS: venlafaxine XR 75mg capsule (Q24H) PO SCH (08:50)
[2017-10-18] MEDS: Protein Shake (high protein) 240ml (8oz) cup PO SCH ×3 (08:56→18:52)
[2017-10-18 11:00] VITALS: BP 96/61
[2017-10-18] MEDS: albuterol 2.5 MG/3 ML nebule NEB PRN (13:05)
[2017-10-18 15:00] VITALS: BP 100/62
[2017-10-18 19:00] VITALS: BP 121/73
[2017-10-18 23:00] VITALS: BP 90/49
[2017-10-19 05:37] LABS: BASOPHILS % (AUTO) 0.2 % (0-1); EOSINOPHILS # (AUTO) 0.3 X10'3 (0-0.9); EOSINOPHILS % (AUTO) 1.6 % (0-6); HEMATOCRIT 30.4 % (35.0-45.0); HEMOGLOBIN 9.8 g/dl (12.0-16.0); LYMPHOCYTES # (AUTO) 1.9 X10'3 (1.1-4.8); MEAN CORPUSCULAR HEMOGLOBIN 27.9 PG (27.0-31.0); MEAN CORPUSCULAR HGB CONC 32.3 % (33.0-36.5); MEAN CORPUSCULAR VOLUME 86.1 FL (78-98); MONOCYTES # (AUTO) 1.1 X10'3 (0-0.9); MONOCYTES % (AUTO) 6.7 % (2-12); NEUTROPHILS # (AUTO) 13.7 X10'3 (1.8-7.7); NEUTROPHILS % (AUTO) 80.5 % (42-75); PLATELET COUNT 402 X10'3 (140-440); RED BLOOD COUNT 3.53 X10'6 (4.20-5.60); RED CELL DISTRIBUTION WIDTH 15.4 % (11.5-14.5)
[2017-10-19 06:00] VITALS: BP 107/66
[2017-10-19 06:12] LABS: ALANINE AMINOTRANSFERASE 27 U/L (12-78); ALBUMIN 2.7 G/DL (3.4-5.0); ALBUMIN/GLOBULIN RATIO 0.7 (1.1-1.5); ALKALINE PHOSPHATASE 64 IU/L (46-116); ANION GAP 2 (8-16); ASPARTATE AMINO TRANSFERASE 21 U/L (10-37); BILIRUBIN,TOTAL 0.1 MG/DL (0.1-1.0); BLOOD UREA NITROGEN 31 MG/DL (7-18); BUN/CREATININE RATIO 31.6 (6.6-38.0); CALCIUM 9.4 MG/DL (8.5-10.1); CHLORIDE 94 MMOL/L (99-107); CREATININE 0.98 MG/DL (0.40-0.90); GLUCOSE 88 MG/DL (70-104); POTASSIUM 5.1 MMOL/L (3.5-5.1); SODIUM 134 MMOL/L (135-145); TOTAL PROTEIN 6.4 G/DL (6.4-8.2); eGFR 58 ML/MIN
[2017-10-19] MEDS: predniSONE 20 mg tablet PO SCH (07:47)
[2017-10-19] MEDS: lactobacillus rhamnosus 10,000 MMU CELLS/CAPSULE PO SCH (07:47)
[2017-10-19] MEDS: gabapentin 300mg capsule PO SCH (07:48)
[2017-10-19] MEDS: aspirin 81mg tablet.DR PO SCH (07:48)
[2017-10-19] MEDS: venlafaxine XR 75mg capsule (Q24H) PO SCH (07:48)
[2017-10-19] MEDS: atorvastatin 20mg tablet PO SCH (07:52)
[2017-10-19] MEDS: levoFLOXACIN-Levaquin 250mg/D5 50 ML IV SCH (07:53)
[2017-10-19] MEDS: fenofibrate 48mg tablet PO SCH (07:54)
[2017-10-19] MEDS: pantoprazole 40mg Tablet.DR PO SCH (07:54)
[2017-10-19] MEDS: carvedilol 6.25mg tablet PO SCH (08:00)
[2017-10-19] MEDS: lisinopril 2.5mg tablet PO SCH (08:13)
[2017-10-19] MEDS: ipratropium/albuterol 3ml nebule NEB SCH (08:16)
[2017-10-19] MEDS: tacrolimus anhydrous 0.5mg capsule PO SCH ×3 (08:17→08:20)
[2017-10-19] MEDS: sulfamethoxazole/trimethoprim DS (800/160mg) tablet PO SCH (08:17)
[2017-10-19] MEDS: mycophenolate mofetil 250mg capsule PO SCH ×2 (08:18→08:19)
[2017-10-19] MEDS: ticagrelor 90mg tablet PO SCH (08:19)
[2017-10-19] MEDS: tacrolimus anhydrous 1mg capsule PO SCH (08:22)
[2017-10-19] MEDS: Protein Shake (high protein) 240ml (8oz) cup PO SCH ×2 (08:24→13:00)
[2017-10-19] MEDS: MORPHINE SULFATE 10 MG PO SCH (09:07)
[2017-10-19 11:00] VITALS: BP 100/61
== END 2017-10-19 15:15 | DRG 720 ==
LOC: ER 13:41 → ED HOLD 16:27 → PCU 3S 18:15
PROVIDERS: ADMIT Family Medicine; ATTEND Internal Medicine
DX: A41.9 Sepsis, unspecified organism (principal); J96.21 Acute and chronic respiratory failure with hypoxia; E43 Unspecified severe protein-calorie malnutrition; J18.9 Pneumonia, unspecified organism; Z94.2 Lung transplant status; B02.9 Zoster without complications; Z99.81 Dependence on supplemental oxygen; J44.1 Chronic obstructive pulmonary disease with (acute) exacerbation; G89.29 Other chronic pain; M54.9 Dorsalgia, unspecified; I10 Essential (primary) hypertension; I25.10 Atherosclerotic heart disease of native coronary artery without angina pectoris; K31.9 Disease of stomach and duodenum, unspecified; Z87.891 Personal history of nicotine dependence; Z88.1 Allergy status to other antibiotic agents; Z95.5 Presence of coronary angioplasty implant and graft; Z68.1 Body mass index [BMI] 19.9 or less, adult; Z79.82 Long term (current) use of aspirin
CPT/HCPCS: 36415; 36600; 71045; 71250; 80053; 82803; 83605; 83735; 83880; 84100; 84132; 84145; 84484; 85018; 85025; 85610; 85730; 87040; 87070; 87502; 87503; 93005; 93306; 94640; 94760; 96374; 97116; 97161; 99285; A6209; A6212; A6213; J1956; J2405; J2920; J2930; J7030; J7507; J7512; J7517

== ENCOUNTER 2017-12-18 16:21 | Inpatient (IN) | payer MEDICAID ==
[~2017-12-18] VITALS: Ht 144.8 cm; Wt 29.6 kg
[~2017-12-18 16:21] MED LIST changes: +IPRA3AMP IH
[2017-12-18 17:03] LABS: BASOPHILS # (AUTO) 0.1 X10'3 (0-0.2); BASOPHILS % (AUTO) 0.3 % (0-1); EOSINOPHILS # (AUTO) 0.1 X10'3 (0-0.9); EOSINOPHILS % (AUTO) 0.4 % (0-6); HEMATOCRIT 32.7 % (35.0-45.0); HEMOGLOBIN 10.8 g/dl (12.0-16.0); LYMPHOCYTES % (AUTO) 9.9 % (21-51); MEAN CORPUSCULAR HEMOGLOBIN 28.1 PG (27.0-31.0); MEAN CORPUSCULAR HGB CONC 33.1 % (33.0-36.5); MEAN CORPUSCULAR VOLUME 84.8 FL (78-98); MEAN PLATELET VOLUME 7.8 FL (7.4-10.4); MONOCYTES # (AUTO) 1.3 X10'3 (0-0.9); MONOCYTES % (AUTO) 6.7 % (2-12); NEUTROPHILS # (AUTO) 16.4 X10'3 (1.8-7.7); NEUTROPHILS % (AUTO) 82.7 % (42-75); PLATELET COUNT 461 X10'3 (140-440); RED BLOOD COUNT 3.85 X10'6 (4.20-5.60); RED CELL DISTRIBUTION WIDTH 17.3 % (11.5-14.5); WHITE BLOOD COUNT 19.8 X10'3 (4.5-11.0)
[2017-12-18 17:19] LABS: ALANINE AMINOTRANSFERASE 19 U/L (12-78); ALBUMIN 2.9 G/DL (3.4-5.0); ALBUMIN/GLOBULIN RATIO 0.6 (1.1-1.5); ALKALINE PHOSPHATASE 68 IU/L (46-116); ANION GAP 4 (8-16); ASPARTATE AMINO TRANSFERASE 18 U/L (10-37); BILIRUBIN,TOTAL 0.3 MG/DL (0.1-1.0); BLOOD UREA NITROGEN 17 MG/DL (7-18); BUN/CREATININE RATIO 19.3 (6.6-38.0); CALCIUM 9.5 MG/DL (8.5-10.1); CHLORIDE 102 MMOL/L (99-107); CREATININE 0.88 MG/DL (0.40-0.90); GLUCOSE 116 MG/DL (70-104); POTASSIUM 4.6 MMOL/L (3.5-5.1); SODIUM 140 MMOL/L (135-145); TOTAL CARBON DIOXIDE 34.1 MMOL/L (24-32); TOTAL PROTEIN 7.6 G/DL (6.4-8.2); eGFR 66 ML/MIN
[2017-12-18] MEDS ORDERED: levoFLOXACIN-Levaquin 750MG/D5 150 ML IV STA (17:46)
[2017-12-18 18:04] LABS: D-DIMER 1.12 MG/L FEU (0-0.50)
[2017-12-18 18:05] LABS: ABG BASE EXCESS 4.1 mmol/L (-2.0-3.0); ABG HCO3 28.5 mmol/L (22.0-26.0); ABG PH (T) 7.449 (7.350-7.450); ABG PO2 (T) 77.9 mmHg (83-108); ALLEN'S TEST Positive; FCOHb 0.4 % (0.5-1.5); FLOW 4 L/min; FMetHb 0.3 % (0.3-1.12); FO2Hb 94.3 % (94-100); TOTAL HEMOGLOBIN 10.8 G/dl (12.0-16.0)
[2017-12-18] MEDS ORDERED: iohexol 350MG/ML 100ml bottle IV ONE (19:32)
[2017-12-18] MEDS ORDERED: ibuprofen tablet 400 MG TABLET PO ONE (20:05)
[2017-12-18] MEDS ORDERED: magnesium 2GM in 50ml NS 50 ML IV PRN (20:30)
[2017-12-18] MEDS ORDERED: HYDROcodone/acetaminophen 5mg/325mg tablet PO PRN (20:30)
[2017-12-18] MEDS ORDERED: potassium Cl 20 mEq SR tablet PO PRN ×2 (20:30)
[2017-12-18] MEDS ORDERED: ondansetron/PF 4mg/2ml inj IV PRN (20:30)
[2017-12-18] MEDS ORDERED: magnesium 4gm in 100ml NS 100 ML IV PRN (20:30)
[2017-12-18] MEDS ORDERED: magnesium Cl slow-release 64mg tablet PO PRN (20:30)
[2017-12-18] MEDS ORDERED: acetaminophen 325mg tablet PO PRN (20:30)
[2017-12-18] MEDS ORDERED: potassium Cl 40MEQ/NS 500ml 500 ML IV PRN ×2 (20:30)
[2017-12-18] MEDS: normal saline 1000ml 1,000 ML IV SCH (20:53)
[2017-12-18] MEDS: ipratropium/albuterol 3ml nebule NEB SCH (23:40)
[2017-12-19] MEDS ORDERED: acetylcysteine 200 MG/ml 4ml vial INH SCH ×2 (02:00→08:00)
[2017-12-19] MEDS: piperacillin/tazo 3.375gm/50ml 50 ML IV SCH ×4 (02:18→20:25)
[2017-12-19] MEDS: ipratropium/albuterol 3ml nebule NEB SCH ×6 (02:53→23:45)
[2017-12-19 07:03] LABS: BASOPHILS % (AUTO) 0.3 % (0-1); EOSINOPHILS # (AUTO) 0.3 X10'3 (0-0.9); EOSINOPHILS % (AUTO) 2.2 % (0-6); HEMATOCRIT 28.5 % (35.0-45.0); HEMOGLOBIN 9.3 g/dl (12.0-16.0); LYMPHOCYTES # (AUTO) 1.3 X10'3 (1.1-4.8); LYMPHOCYTES % (AUTO) 10.3 % (21-51); MEAN CORPUSCULAR HEMOGLOBIN 27.7 PG (27.0-31.0); MEAN CORPUSCULAR HGB CONC 32.5 % (33.0-36.5); MEAN CORPUSCULAR VOLUME 85.1 FL (78-98); MEAN PLATELET VOLUME 7.9 FL (7.4-10.4); MONOCYTES # (AUTO) 0.9 X10'3 (0-0.9); MONOCYTES % (AUTO) 7.2 % (2-12); NEUTROPHILS # (AUTO) 10.4 X10'3 (1.8-7.7); PLATELET COUNT 356 X10'3 (140-440); RED BLOOD COUNT 3.35 X10'6 (4.20-5.60); RED CELL DISTRIBUTION WIDTH 17.2 % (11.5-14.5)
[2017-12-19 07:15] LABS: ALBUMIN 2.3 G/DL (3.4-5.0); ANION GAP 7 (8-16); BLOOD UREA NITROGEN 15 MG/DL (7-18); CALCIUM 9.1 MG/DL (8.5-10.1); CHLORIDE 103 MMOL/L (99-107); CREATININE 0.79 MG/DL (0.40-0.90); GLUCOSE 87 MG/DL (70-104); MAGNESIUM 1.6 MG/DL (1.5-2.4); POTASSIUM 3.8 MMOL/L (3.5-5.1); SODIUM 140 MMOL/L (135-145); TOTAL CARBON DIOXIDE 30.5 MMOL/L (24-32); eGFR 75 ML/MIN
[2017-12-19] MEDS: guaiFENesin ER 600mg tablet PO SCH ×2 (07:40→20:26)
[2017-12-19] MEDS: carvedilol 6.25mg tablet PO SCH ×2 (07:40→20:00)
[2017-12-19] MEDS: lisinopril 2.5mg tablet PO SCH (07:40)
[2017-12-19] MEDS: acetylcysteine 200 MG/ml 4ml vial INH SCH ×3 (07:44→19:44)
[2017-12-19] MEDS: venlafaxine XR 75mg capsule (Q24H) PO SCH (07:45)
[2017-12-19] MEDS: atorvastatin 20mg tablet PO SCH (07:46)
[2017-12-19] MEDS ORDERED: non-formulary drug (Atorvastatin Calcium* (Lipitor*) 1 TABLET) PO SCH (08:00)
[2017-12-19] MEDS: K and/or MAG REPLACEMENT MC SCH (08:00)
[2017-12-19] MEDS ORDERED: non-formulary drug (Venlafaxine HCl (Effexor Xr) 1 CAP) PO SCH (08:00)
[2017-12-19] MEDS ORDERED: methadone 10mg tablet PO ONE (09:15)
[2017-12-19] MEDS: methadone 10mg tablet PO SCH ×2 (09:22→20:00)
[2017-12-19] MEDS: prednisone 10mg tablet PO SCH (09:23)
[2017-12-19] MEDS: sulfamethoxazole/trimethoprim DS (800/160mg) tablet PO SCH (09:24)
[2017-12-19] MEDS: mycophenolate mofetil 250mg capsule PO SCH ×2 (09:24→20:24)
[2017-12-19] MEDS: fenofibrate 48mg tablet PO SCH (09:24)
[2017-12-19 15:00] VITALS: BP 98/47
[2017-12-19] MEDS: normal saline 1000ml 1,000 ML IV SCH (15:03)
[2017-12-19 19:30] VITALS: BP 94/53
[2017-12-19] MEDS: lactobacillus rhamnosus 10,000 MMU CELLS/CAPSULE PO SCH (20:27)
[2017-12-19] MEDS ORDERED: tacrolimus anhydrous 1mg capsule PO ONE (22:10)
[2017-12-20] VITALS: BP 109/56
[2017-12-20] MEDS: piperacillin/tazo 3.375gm/50ml 50 ML IV SCH ×4 (02:40→20:22)
[2017-12-20] MEDS: ipratropium/albuterol 3ml nebule NEB SCH ×5 (03:00→23:00)
[2017-12-20] MEDS: acetylcysteine 200 MG/ml 4ml vial INH SCH ×4 (03:00→20:05)
[2017-12-20 06:34] LABS: BASOPHILS % (AUTO) 0.4 % (0-1); EOSINOPHILS # (AUTO) 0.2 X10'3 (0-0.9); EOSINOPHILS % (AUTO) 2.1 % (0-6); HEMATOCRIT 24.4 % (35.0-45.0); HEMOGLOBIN 7.9 g/dl (12.0-16.0); LYMPHOCYTES # (AUTO) 1.3 X10'3 (1.1-4.8); LYMPHOCYTES % (AUTO) 13.1 % (21-51); MEAN CORPUSCULAR HEMOGLOBIN 28.2 PG (27.0-31.0); MEAN CORPUSCULAR HGB CONC 32.6 % (33.0-36.5); MEAN CORPUSCULAR VOLUME 86.5 FL (78-98); MONOCYTES # (AUTO) 0.7 X10'3 (0-0.9); MONOCYTES % (AUTO) 6.8 % (2-12); NEUTROPHILS % (AUTO) 77.6 % (42-75); PLATELET COUNT 302 X10'3 (140-440); RED BLOOD COUNT 2.82 X10'6 (4.20-5.60); RED CELL DISTRIBUTION WIDTH 17.3 % (11.5-14.5); WHITE BLOOD COUNT 10.3 X10'3 (4.5-11.0)
[2017-12-20 06:36] LABS: ALBUMIN 2.1 G/DL (3.4-5.0); ANION GAP 5 (8-16); BLOOD UREA NITROGEN 15 MG/DL (7-18); BUN/CREATININE RATIO 17.4 (6.6-38.0); CALCIUM 8.6 MG/DL (8.5-10.1); CHLORIDE 105 MMOL/L (99-107); CREATININE 0.86 MG/DL (0.40-0.90); GLUCOSE 89 MG/DL (70-104); MAGNESIUM 1.6 MG/DL (1.5-2.4); SODIUM 141 MMOL/L (135-145); TOTAL CARBON DIOXIDE 30.6 MMOL/L (24-32); eGFR 68 ML/MIN
[2017-12-20 07:06] VITALS: BP 108/55
[2017-12-20] MEDS: methadone 10mg tablet PO SCH (08:00)
[2017-12-20] MEDS: K and/or MAG REPLACEMENT MC SCH (08:00)
[2017-12-20] MEDS: venlafaxine XR 75mg capsule (Q24H) PO SCH (08:18)
[2017-12-20] MEDS: guaiFENesin ER 600mg tablet PO SCH ×2 (08:18→20:23)
[2017-12-20] MEDS: lactobacillus rhamnosus 10,000 MMU CELLS/CAPSULE PO SCH ×2 (08:18→20:23)
[2017-12-20] MEDS: carvedilol 6.25mg tablet PO SCH ×2 (08:20→20:23)
[2017-12-20] MEDS: atorvastatin 20mg tablet PO SCH (08:20)
[2017-12-20] MEDS: fenofibrate 48mg tablet PO SCH (08:20)
[2017-12-20] MEDS: mycophenolate mofetil 250mg capsule PO SCH ×2 (08:20→20:23)
[2017-12-20] MEDS: lisinopril 2.5mg tablet PO SCH (08:23)
[2017-12-20] MEDS: sulfamethoxazole/trimethoprim DS (800/160mg) tablet PO SCH (08:23)
[2017-12-20] MEDS: prednisone 10mg tablet PO SCH (08:24)
[2017-12-20] MEDS: tacrolimus anhydrous 1mg capsule PO SCH ×2 (08:25→20:23)
[2017-12-20] MEDS ORDERED: [UNRECOGNIZED DRUG - CODE] PO (10:29)
[2017-12-20 11:16] VITALS: BP 90/50
[2017-12-20] MEDS: normal saline 1000ml 1,000 ML IV SCH (12:45)
[2017-12-20] MEDS: pantoprazole 40mg Tablet.DR PO SCH (12:55)
[2017-12-20] MEDS: morphine 10 MG/5 ML UD oral solution PO SCH ×2 (14:10→20:48)
[2017-12-20 19:00] VITALS: BP 104/62
[2017-12-21] VITALS: BP 94/56
[2017-12-21] MEDS: piperacillin/tazo 3.375gm/50ml 50 ML IV SCH ×4 (02:37→19:57)
[2017-12-21] MEDS: ipratropium/albuterol 3ml nebule NEB SCH ×6 (03:43→23:00)
[2017-12-21] MEDS: acetylcysteine 200 MG/ml 4ml vial INH SCH ×3 (03:43→16:40)
[2017-12-21 06:09] LABS: BASOPHILS % (AUTO) 0 % (0-1); EOSINOPHILS # (AUTO) 0.3 X10'3 (0-0.9); EOSINOPHILS % (AUTO) 2.4 % (0-6); HEMATOCRIT 24.1 % (35.0-45.0); HEMOGLOBIN 7.9 g/dl (12.0-16.0); LYMPHOCYTES # (AUTO) 1.1 X10'3 (1.1-4.8); LYMPHOCYTES % (AUTO) 8.8 % (21-51); MEAN CORPUSCULAR HEMOGLOBIN 28.1 PG (27.0-31.0); MEAN CORPUSCULAR HGB CONC 32.7 % (33.0-36.5); MONOCYTES # (AUTO) 0.8 X10'3 (0-0.9); MONOCYTES % (AUTO) 6.6 % (2-12); NEUTROPHILS # (AUTO) 10.3 X10'3 (1.8-7.7); NEUTROPHILS % (AUTO) 82.2 % (42-75); PLATELET COUNT 327 X10'3 (140-440); WHITE BLOOD COUNT 12.6 X10'3 (4.5-11.0)
[2017-12-21 06:38] LABS: ALBUMIN 2.1 G/DL (3.4-5.0); ANION GAP 6 (8-16); BLOOD UREA NITROGEN 10 MG/DL (7-18); BUN/CREATININE RATIO 12.8 (6.6-38.0); CALCIUM 8.5 MG/DL (8.5-10.1); CHLORIDE 108 MMOL/L (99-107); CREATININE 0.78 MG/DL (0.40-0.90); GLUCOSE 83 MG/DL (70-104); MAGNESIUM 1.9 MG/DL (1.5-2.4); POTASSIUM 3.8 MMOL/L (3.5-5.1); SODIUM 145 MMOL/L (135-145); TOTAL CARBON DIOXIDE 31.4 MMOL/L (24-32); eGFR 76 ML/MIN
[2017-12-21 08:00] VITALS: BP 122/65
[2017-12-21] MEDS: K and/or MAG REPLACEMENT MC SCH (08:00)
[2017-12-21] MEDS: mycophenolate mofetil 250mg capsule PO SCH ×2 (08:00→19:57)
[2017-12-21] MEDS: pantoprazole 40mg Tablet.DR PO SCH (08:00)
[2017-12-21] MEDS: venlafaxine XR 75mg capsule (Q24H) PO SCH (08:01)
[2017-12-21] MEDS: carvedilol 6.25mg tablet PO SCH ×2 (08:01→19:48)
[2017-12-21] MEDS: lactobacillus rhamnosus 10,000 MMU CELLS/CAPSULE PO SCH ×2 (08:01→19:57)
[2017-12-21] MEDS: atorvastatin 20mg tablet PO SCH (08:02)
[2017-12-21] MEDS: guaiFENesin ER 600mg tablet PO SCH ×2 (08:02→19:57)
[2017-12-21] MEDS: prednisone 10mg tablet PO SCH (08:03)
[2017-12-21] MEDS: morphine 10 MG/5 ML UD oral solution PO SCH ×3 (08:03→19:59)
[2017-12-21] MEDS: sulfamethoxazole/trimethoprim DS (800/160mg) tablet PO SCH (08:05)
[2017-12-21] MEDS: fenofibrate 48mg tablet PO SCH (08:05)
[2017-12-21] MEDS: lisinopril 2.5mg tablet PO SCH (08:06)
[2017-12-21] MEDS: tacrolimus anhydrous 1mg capsule PO SCH ×2 (08:11→19:57)
[2017-12-21 11:00] VITALS: BP 75/49
[2017-12-21] MEDS: normal saline 1000ml 1,000 ML IV SCH (11:13)
[2017-12-21 19:00] VITALS: BP 96/61
[2017-12-21] MEDS ORDERED: ipratropium/albuterol 3ml nebule NEB PRN (20:25)
[2017-12-22] VITALS: BP 100/64
[2017-12-22] MEDS: piperacillin/tazo 3.375gm/50ml 50 ML IV SCH ×4 (02:47→19:18)
[2017-12-22] MEDS: normal saline 1000ml 1,000 ML IV SCH (04:27)
[2017-12-22 05:52] LABS: BASOPHILS % (AUTO) 0 % (0-1); EOSINOPHILS # (AUTO) 0.2 X10'3 (0-0.9); EOSINOPHILS % (AUTO) 1.4 % (0-6); HEMATOCRIT 23.7 % (35.0-45.0); HEMOGLOBIN 7.7 g/dl (12.0-16.0); LYMPHOCYTES # (AUTO) 1.3 X10'3 (1.1-4.8); LYMPHOCYTES % (AUTO) 10.6 % (21-51); MEAN CORPUSCULAR HGB CONC 32.4 % (33.0-36.5); MEAN CORPUSCULAR VOLUME 86.2 FL (78-98); MEAN PLATELET VOLUME 7.9 FL (7.4-10.4); MONOCYTES # (AUTO) 0.9 X10'3 (0-0.9); MONOCYTES % (AUTO) 7.9 % (2-12); NEUTROPHILS # (AUTO) 9.6 X10'3 (1.8-7.7); NEUTROPHILS % (AUTO) 80.1 % (42-75); PLATELET COUNT 364 X10'3 (140-440); RED BLOOD COUNT 2.75 X10'6 (4.20-5.60); RED CELL DISTRIBUTION WIDTH 17.2 % (11.5-14.5); WHITE BLOOD COUNT 11.9 X10'3 (4.5-11.0)
[2017-12-22 06:27] LABS: ANION GAP 7 (8-16); BLOOD UREA NITROGEN 9 MG/DL (7-18); CALCIUM 8.4 MG/DL (8.5-10.1); CHLORIDE 106 MMOL/L (99-107); CREATININE 0.69 MG/DL (0.40-0.90); GLUCOSE 95 MG/DL (70-104); MAGNESIUM 1.8 MG/DL (1.5-2.4); POTASSIUM 3.4 MMOL/L (3.5-5.1); SODIUM 143 MMOL/L (135-145); TOTAL CARBON DIOXIDE 29.9 MMOL/L (24-32); eGFR 87 ML/MIN
[2017-12-22 07:00] VITALS: BP 129/67
[2017-12-22] MEDS: ipratropium/albuterol 3ml nebule NEB SCH ×4 (07:52→19:08)
[2017-12-22] MEDS: K and/or MAG REPLACEMENT MC SCH (08:00)
[2017-12-22] MEDS: morphine 10 MG/5 ML UD oral solution PO SCH ×2 (08:00→19:19)
[2017-12-22] MEDS: lisinopril 2.5mg tablet PO SCH (09:03)
[2017-12-22] MEDS: atorvastatin 20mg tablet PO SCH (09:03)
[2017-12-22] MEDS: venlafaxine XR 75mg capsule (Q24H) PO SCH (09:03)
[2017-12-22] MEDS: fenofibrate 48mg tablet PO SCH (09:04)
[2017-12-22] MEDS: predniSONE 20 mg tablet PO SCH (09:04)
[2017-12-22] MEDS: guaiFENesin ER 600mg tablet PO SCH ×2 (09:05→19:20)
[2017-12-22] MEDS: lactobacillus rhamnosus 10,000 MMU CELLS/CAPSULE PO SCH ×2 (09:05→19:20)
[2017-12-22] MEDS: carvedilol 6.25mg tablet PO SCH ×2 (09:05→20:46)
[2017-12-22] MEDS: sulfamethoxazole/trimethoprim DS (800/160mg) tablet PO SCH (09:08)
[2017-12-22] MEDS: mycophenolate mofetil 250mg capsule PO SCH ×2 (09:11→19:19)
[2017-12-22] MEDS: tacrolimus anhydrous 1mg capsule PO SCH ×2 (09:11→19:19)
[2017-12-22] MEDS: pantoprazole 40mg Tablet.DR PO SCH (09:14)
[2017-12-22 14:50] VITALS: BP 115/58
[2017-12-22] MEDS ORDERED: magnesium Cl slow-release 64mg tablet PO PRN (16:25)
[2017-12-22] MEDS ORDERED: potassium Cl 20 mEq SR tablet PO PRN (16:25)
[2017-12-22] MEDS ORDERED: magnesium 2GM in 50ml NS 50 ML IV PRN (16:25)
[2017-12-22] MEDS ORDERED: potassium Cl 40MEQ/NS 500ml 500 ML IV PRN ×2 (16:25)
[2017-12-22] MEDS ORDERED: magnesium 4gm in 100ml NS 100 ML IV PRN (16:25)
[2017-12-22] MEDS: potassium Cl 20 mEq SR tablet PO PRN ×2 (16:42→20:45)
[2017-12-22 20:00] VITALS: BP 134/88
[2017-12-23] VITALS: BP 114/66
[2017-12-23] MEDS: normal saline 1000ml 1,000 ML IV SCH (00:27)
[2017-12-23] MEDS: potassium Cl 20 mEq SR tablet PO PRN (01:17)
[2017-12-23] MEDS: piperacillin/tazo 3.375gm/50ml 50 ML IV SCH ×4 (01:17→20:36)
[2017-12-23 06:05] LABS: BASOPHILS % (AUTO) 0.1 % (0-1); EOSINOPHILS # (AUTO) 0.2 X10'3 (0-0.9); EOSINOPHILS % (AUTO) 1.1 % (0-6); HEMATOCRIT 25.1 % (35.0-45.0); HEMOGLOBIN 8.1 g/dl (12.0-16.0); LYMPHOCYTES # (AUTO) 1.7 X10'3 (1.1-4.8); LYMPHOCYTES % (AUTO) 10.4 % (21-51); MEAN CORPUSCULAR HEMOGLOBIN 27.5 PG (27.0-31.0); MEAN CORPUSCULAR HGB CONC 32.2 % (33.0-36.5); MEAN CORPUSCULAR VOLUME 85.4 FL (78-98); MONOCYTES % (AUTO) 6.3 % (2-12); NEUTROPHILS # (AUTO) 13.5 X10'3 (1.8-7.7); NEUTROPHILS % (AUTO) 82.1 % (42-75); PLATELET COUNT 366 X10'3 (140-440); RED BLOOD COUNT 2.94 X10'6 (4.20-5.60); RED CELL DISTRIBUTION WIDTH 17.5 % (11.5-14.5); WHITE BLOOD COUNT 16.5 X10'3 (4.5-11.0)
[2017-12-23 06:32] LABS: ALBUMIN 2.2 G/DL (3.4-5.0); ANION GAP 4 (8-16); BLOOD UREA NITROGEN 11 MG/DL (7-18); BUN/CREATININE RATIO 16.4 (6.6-38.0); CHLORIDE 106 MMOL/L (99-107); CREATININE 0.67 MG/DL (0.40-0.90); GLUCOSE 85 MG/DL (70-104); MAGNESIUM 1.7 MG/DL (1.5-2.4); POTASSIUM 5.1 MMOL/L (3.5-5.1); SODIUM 142 MMOL/L (135-145); TOTAL CARBON DIOXIDE 32.3 MMOL/L (24-32); eGFR 90 ML/MIN
[2017-12-23 07:00] VITALS: BP 123/76
[2017-12-23] MEDS: K and/or MAG REPLACEMENT MC SCH (08:00)
[2017-12-23] MEDS: ipratropium/albuterol 3ml nebule NEB SCH ×4 (08:15→20:12)
[2017-12-23] MEDS: lisinopril 2.5mg tablet PO SCH (09:00)
[2017-12-23] MEDS: fenofibrate 48mg tablet PO SCH (09:00)
[2017-12-23] MEDS: sulfamethoxazole/trimethoprim DS (800/160mg) tablet PO SCH (09:01)
[2017-12-23] MEDS: pantoprazole 40mg Tablet.DR PO SCH (09:01)
[2017-12-23] MEDS: lactobacillus rhamnosus 10,000 MMU CELLS/CAPSULE PO SCH ×2 (09:01→20:38)
[2017-12-23] MEDS: mycophenolate mofetil 250mg capsule PO SCH ×2 (09:01→20:38)
[2017-12-23] MEDS: atorvastatin 20mg tablet PO SCH (09:01)
[2017-12-23] MEDS: predniSONE 20 mg tablet PO SCH (09:02)
[2017-12-23] MEDS: guaiFENesin ER 600mg tablet PO SCH ×2 (09:02→20:38)
[2017-12-23] MEDS: venlafaxine XR 75mg capsule (Q24H) PO SCH (09:02)
[2017-12-23] MEDS: carvedilol 6.25mg tablet PO SCH ×2 (09:03→20:00)
[2017-12-23] MEDS: morphine 10 MG/5 ML UD oral solution PO SCH ×2 (09:06→20:39)
[2017-12-23] MEDS: tacrolimus anhydrous 1mg capsule PO SCH ×2 (09:06→20:38)
[2017-12-23 14:00] VITALS: BP 103/56
[2017-12-23] MEDS: nystatin 500,000 unit/5ML UD oral suspension PO SCH ×2 (15:45→20:36)
[2017-12-23 19:00] VITALS: BP 100/62
[2017-12-23 23:30] VITALS: BP 123/65
[2017-12-24] MEDS: piperacillin/tazo 3.375gm/50ml 50 ML IV SCH ×4 (01:51→20:07)
[2017-12-24 05:57] LABS: BASOPHILS % (AUTO) 0.3 % (0-1); EOSINOPHILS # (AUTO) 0.2 X10'3 (0-0.9); EOSINOPHILS % (AUTO) 1.9 % (0-6); HEMATOCRIT 25.5 % (35.0-45.0); HEMOGLOBIN 8.3 g/dl (12.0-16.0); LYMPHOCYTES # (AUTO) 1.6 X10'3 (1.1-4.8); LYMPHOCYTES % (AUTO) 16.7 % (21-51); MEAN CORPUSCULAR HEMOGLOBIN 27.9 PG (27.0-31.0); MEAN CORPUSCULAR HGB CONC 32.4 % (33.0-36.5); MEAN CORPUSCULAR VOLUME 86.2 FL (78-98); MEAN PLATELET VOLUME 8.1 FL (7.4-10.4); MONOCYTES # (AUTO) 0.7 X10'3 (0-0.9); MONOCYTES % (AUTO) 7.4 % (2-12); NEUTROPHILS # (AUTO) 7.2 X10'3 (1.8-7.7); NEUTROPHILS % (AUTO) 73.7 % (42-75); PLATELET COUNT 347 X10'3 (140-440); RED BLOOD COUNT 2.96 X10'6 (4.20-5.60); WHITE BLOOD COUNT 9.7 X10'3 (4.5-11.0)
[2017-12-24 06:53] LABS: ALBUMIN 2.3 G/DL (3.4-5.0); ANION GAP 6 (8-16); BLOOD UREA NITROGEN 9 MG/DL (7-18); BUN/CREATININE RATIO 12.7 (6.6-38.0); CALCIUM 9.2 MG/DL (8.5-10.1); CHLORIDE 102 MMOL/L (99-107); CREATININE 0.71 MG/DL (0.40-0.90); GLUCOSE 137 MG/DL (70-104); MAGNESIUM 1.9 MG/DL (1.5-2.4); POTASSIUM 3.7 MMOL/L (3.5-5.1); SODIUM 141 MMOL/L (135-145); TOTAL CARBON DIOXIDE 33.1 MMOL/L (24-32); eGFR 85 ML/MIN
[2017-12-24] MEDS: mycophenolate mofetil 250mg capsule PO SCH ×2 (07:15→20:09)
[2017-12-24] MEDS: predniSONE 20 mg tablet PO SCH (07:15)
[2017-12-24] MEDS: carvedilol 6.25mg tablet PO SCH ×2 (07:15→20:08)
[2017-12-24] MEDS: pantoprazole 40mg Tablet.DR PO SCH (07:15)
[2017-12-24] MEDS: guaiFENesin ER 600mg tablet PO SCH ×2 (07:15→20:08)
[2017-12-24] MEDS: fenofibrate 48mg tablet PO SCH (07:15)
[2017-12-24] MEDS: lactobacillus rhamnosus 10,000 MMU CELLS/CAPSULE PO SCH ×2 (07:15→20:07)
[2017-12-24] MEDS: sulfamethoxazole/trimethoprim DS (800/160mg) tablet PO SCH (07:16)
[2017-12-24] MEDS: atorvastatin 20mg tablet PO SCH (07:16)
[2017-12-24] MEDS: venlafaxine XR 75mg capsule (Q24H) PO SCH (07:16)
[2017-12-24] MEDS: tacrolimus anhydrous 1mg capsule PO SCH ×2 (07:16→20:08)
[2017-12-24] MEDS: enoxaparin 30mg/0.3ml syringe SUBCUT SCH (07:16)
[2017-12-24] MEDS: nystatin 500,000 unit/5ML UD oral suspension PO SCH ×3 (07:17→20:09)
[2017-12-24] MEDS: morphine 10 MG/5 ML UD oral solution PO SCH ×2 (07:17→20:08)
[2017-12-24] MEDS: lisinopril 2.5mg tablet PO SCH (07:19)
[2017-12-24 07:30] VITALS: BP 108/71
[2017-12-24] MEDS: ipratropium/albuterol 3ml nebule NEB SCH ×4 (07:38→18:42)
[2017-12-24] MEDS: K and/or MAG REPLACEMENT MC SCH (08:00)
[2017-12-24 11:00] VITALS: BP 108/71
[2017-12-24] MEDS: valacyclovir 500mg tablet PO SCH ×2 (11:58→20:09)
[2017-12-24] MEDS: Protein Shake (high protein) 240ml (8oz) cup PO SCH ×2 (12:37→18:21)
[2017-12-24 20:00] VITALS: BP 119/74
[2017-12-25] VITALS: BP 106/66
[2017-12-25] MEDS: piperacillin/tazo 3.375gm/50ml 50 ML IV SCH ×4 (01:47→20:42)
[2017-12-25 04:03] LABS: BASOPHILS % (AUTO) 0.4 % (0-1); EOSINOPHILS # (AUTO) 0.3 X10'3 (0-0.9); EOSINOPHILS % (AUTO) 2.8 % (0-6); HEMATOCRIT 25.6 % (35.0-45.0); HEMOGLOBIN 8.4 g/dl (12.0-16.0); LYMPHOCYTES # (AUTO) 1.9 X10'3 (1.1-4.8); LYMPHOCYTES % (AUTO) 17.6 % (21-51); MEAN CORPUSCULAR HEMOGLOBIN 27.6 PG (27.0-31.0); MEAN CORPUSCULAR HGB CONC 32.7 % (33.0-36.5); MEAN CORPUSCULAR VOLUME 84.5 FL (78-98); MEAN PLATELET VOLUME 7.6 FL (7.4-10.4); MONOCYTES # (AUTO) 0.7 X10'3 (0-0.9); NEUTROPHILS # (AUTO) 7.6 X10'3 (1.8-7.7); NEUTROPHILS % (AUTO) 72.2 % (42-75); PLATELET COUNT 372 X10'3 (140-440); RED BLOOD COUNT 3.03 X10'6 (4.20-5.60); RED CELL DISTRIBUTION WIDTH 17.4 % (11.5-14.5); WHITE BLOOD COUNT 10.6 X10'3 (4.5-11.0)
[2017-12-25 04:11] LABS: ALBUMIN 2.3 G/DL (3.4-5.0); ANION GAP 3 (8-16); BLOOD UREA NITROGEN 15 MG/DL (7-18); BUN/CREATININE RATIO 16.7 (6.6-38.0); CALCIUM 8.9 MG/DL (8.5-10.1); CHLORIDE 101 MMOL/L (99-107); GLUCOSE 124 MG/DL (70-104); MAGNESIUM 1.8 MG/DL (1.5-2.4); POTASSIUM 3.9 MMOL/L (3.5-5.1); SODIUM 139 MMOL/L (135-145); TOTAL CARBON DIOXIDE 34.9 MMOL/L (24-32); eGFR 64 ML/MIN
[2017-12-25] MEDS: ipratropium/albuterol 3ml nebule NEB SCH ×4 (06:48→18:58)
[2017-12-25 07:30] VITALS: BP 116/70
[2017-12-25] MEDS: K and/or MAG REPLACEMENT MC SCH (08:00)
[2017-12-25] MEDS: venlafaxine XR 75mg capsule (Q24H) PO SCH (08:12)
[2017-12-25] MEDS: morphine 10 MG/5 ML UD oral solution PO SCH ×2 (08:12→20:44)
[2017-12-25] MEDS: fenofibrate 48mg tablet PO SCH (08:13)
[2017-12-25] MEDS: valacyclovir 500mg tablet PO SCH ×2 (08:13→20:41)
[2017-12-25] MEDS: pantoprazole 40mg Tablet.DR PO SCH (08:13)
[2017-12-25] MEDS: atorvastatin 20mg tablet PO SCH (08:13)
[2017-12-25] MEDS: tacrolimus anhydrous 1mg capsule PO SCH ×2 (08:13→20:40)
[2017-12-25] MEDS: guaiFENesin ER 600mg tablet PO SCH ×2 (08:13→20:41)
[2017-12-25] MEDS: predniSONE 20 mg tablet PO SCH (08:13)
[2017-12-25] MEDS: lactobacillus rhamnosus 10,000 MMU CELLS/CAPSULE PO SCH ×2 (08:13→20:41)
[2017-12-25] MEDS: lisinopril 2.5mg tablet PO SCH (08:13)
[2017-12-25] MEDS: carvedilol 6.25mg tablet PO SCH ×2 (08:13→20:42)
[2017-12-25] MEDS: sulfamethoxazole/trimethoprim DS (800/160mg) tablet PO SCH (08:13)
[2017-12-25] MEDS: nystatin 500,000 unit/5ML UD oral suspension PO SCH ×3 (08:14→20:43)
[2017-12-25] MEDS: mycophenolate mofetil 250mg capsule PO SCH ×2 (08:14→20:41)
[2017-12-25] MEDS: enoxaparin 30mg/0.3ml syringe SUBCUT SCH (08:15)
[2017-12-25] MEDS: Protein Shake (high protein) 240ml (8oz) cup PO SCH ×3 (08:23→18:53)
[2017-12-25 11:30] VITALS: BP 94/54
[2017-12-25 20:00] VITALS: BP 119/77
[2017-12-26] VITALS: BP 125/73
[2017-12-26] MEDS: piperacillin/tazo 3.375gm/50ml 50 ML IV SCH ×2 (02:25→08:15)
[2017-12-26 05:34] LABS: BASOPHILS % (AUTO) 0.2 % (0-1); EOSINOPHILS # (AUTO) 0.2 X10'3 (0-0.9); EOSINOPHILS % (AUTO) 1.8 % (0-6); HEMATOCRIT 25.9 % (35.0-45.0); HEMOGLOBIN 8.4 g/dl (12.0-16.0); LYMPHOCYTES # (AUTO) 1.7 X10'3 (1.1-4.8); LYMPHOCYTES % (AUTO) 12.5 % (21-51); MEAN CORPUSCULAR HEMOGLOBIN 28.1 PG (27.0-31.0); MEAN CORPUSCULAR HGB CONC 32.3 % (33.0-36.5); MEAN CORPUSCULAR VOLUME 87.1 FL (78-98); MEAN PLATELET VOLUME 7.9 FL (7.4-10.4); MONOCYTES % (AUTO) 7.2 % (2-12); NEUTROPHILS # (AUTO) 10.7 X10'3 (1.8-7.7); NEUTROPHILS % (AUTO) 78.3 % (42-75); PLATELET COUNT 397 X10'3 (140-440); RED BLOOD COUNT 2.98 X10'6 (4.20-5.60); RED CELL DISTRIBUTION WIDTH 17.3 % (11.5-14.5); WHITE BLOOD COUNT 13.6 X10'3 (4.5-11.0)
[2017-12-26 05:53] LABS: ALBUMIN 2.5 G/DL (3.4-5.0); ANION GAP 5 (8-16); BLOOD UREA NITROGEN 16 MG/DL (7-18); BUN/CREATININE RATIO 19.8 (6.6-38.0); CALCIUM 9.3 MG/DL (8.5-10.1); CHLORIDE 101 MMOL/L (99-107); CREATININE 0.81 MG/DL (0.40-0.90); GLUCOSE 92 MG/DL (70-104); POTASSIUM 4.2 MMOL/L (3.5-5.1); SODIUM 140 MMOL/L (135-145); TOTAL CARBON DIOXIDE 34.4 MMOL/L (24-32); eGFR 73 ML/MIN
[2017-12-26] MEDS: ipratropium/albuterol 3ml nebule NEB SCH ×4 (07:08→21:28)
[2017-12-26] MEDS: K and/or MAG REPLACEMENT MC SCH (07:18)
[2017-12-26 07:33] VITALS: BP 138/74
[2017-12-26] MEDS: guaiFENesin ER 600mg tablet PO SCH ×2 (08:11→19:56)
[2017-12-26] MEDS: lactobacillus rhamnosus 10,000 MMU CELLS/CAPSULE PO SCH ×2 (08:11→19:55)
[2017-12-26] MEDS: mycophenolate mofetil 250mg capsule PO SCH ×2 (08:11→19:55)
[2017-12-26] MEDS: sulfamethoxazole/trimethoprim DS (800/160mg) tablet PO SCH (08:11)
[2017-12-26] MEDS: carvedilol 6.25mg tablet PO SCH ×2 (08:11→19:55)
[2017-12-26] MEDS: lisinopril 2.5mg tablet PO SCH (08:11)
[2017-12-26] MEDS: pantoprazole 40mg Tablet.DR PO SCH (08:12)
[2017-12-26] MEDS: venlafaxine XR 75mg capsule (Q24H) PO SCH (08:12)
[2017-12-26] MEDS: predniSONE 20 mg tablet PO SCH (08:12)
[2017-12-26] MEDS: atorvastatin 20mg tablet PO SCH (08:13)
[2017-12-26] MEDS: enoxaparin 30mg/0.3ml syringe SUBCUT SCH (08:14)
[2017-12-26] MEDS: tacrolimus anhydrous 1mg capsule PO SCH ×2 (08:14→19:55)
[2017-12-26] MEDS: fenofibrate 48mg tablet PO SCH (08:15)
[2017-12-26] MEDS: morphine 10 MG/5 ML UD oral solution PO SCH ×2 (08:16→19:55)
[2017-12-26] MEDS: nystatin 500,000 unit/5ML UD oral suspension PO SCH ×3 (08:26→19:56)
[2017-12-26] MEDS: valacyclovir 500mg tablet PO SCH ×2 (08:26→19:55)
[2017-12-26] MEDS ORDERED: loperamide 2mg capsule PO ONE (08:30)
[2017-12-26] MEDS ORDERED: cefepime inj. 1 GM in dextrose 5%-water 50ml 100 ML IV SCH (08:30)
[2017-12-26] MEDS: Protein Shake (high protein) 240ml (8oz) cup PO SCH ×3 (08:33→18:33)
[2017-12-26 11:37] VITALS: BP 113/78
[2017-12-26] MEDS: cefepime inj. 1 GM in dextrose 5%-water 50ml 50 ML IV SCH (16:36)
[2017-12-26 18:00] VITALS: BP 126/75
[2017-12-26 23:36] VITALS: BP 127/75
[2017-12-27] MEDS: cefepime inj. 1 GM in dextrose 5%-water 50ml 50 ML IV SCH ×4 (00:01→23:24)
[2017-12-27 07:17] VITALS: BP 132/74
[2017-12-27] MEDS: ipratropium/albuterol 3ml nebule NEB SCH ×4 (07:45→20:01)
[2017-12-27] MEDS: atorvastatin 20mg tablet PO SCH (08:46)
[2017-12-27] MEDS: sulfamethoxazole/trimethoprim DS (800/160mg) tablet PO SCH (08:47)
[2017-12-27] MEDS: mycophenolate mofetil 250mg capsule PO SCH ×2 (08:47→20:41)
[2017-12-27] MEDS: valacyclovir 500mg tablet PO SCH ×2 (08:48→20:41)
[2017-12-27] MEDS: carvedilol 6.25mg tablet PO SCH ×2 (08:49→20:41)
[2017-12-27] MEDS: lisinopril 2.5mg tablet PO SCH (08:49)
[2017-12-27] MEDS: fenofibrate 48mg tablet PO SCH (08:49)
[2017-12-27] MEDS: venlafaxine XR 75mg capsule (Q24H) PO SCH (08:50)
[2017-12-27] MEDS: guaiFENesin ER 600mg tablet PO SCH ×2 (08:50→20:41)
[2017-12-27] MEDS: nystatin 500,000 unit/5ML UD oral suspension PO SCH ×3 (08:51→20:41)
[2017-12-27] MEDS: predniSONE 20 mg tablet PO SCH (08:51)
[2017-12-27] MEDS: tacrolimus anhydrous 1mg capsule PO SCH ×2 (08:51→20:41)
[2017-12-27] MEDS: lactobacillus rhamnosus 10,000 MMU CELLS/CAPSULE PO SCH ×2 (08:51→20:41)
[2017-12-27] MEDS: enoxaparin 30mg/0.3ml syringe SUBCUT SCH (08:53)
[2017-12-27] MEDS: morphine 10 MG/5 ML UD oral solution PO SCH ×2 (08:54→20:40)
[2017-12-27] MEDS: pantoprazole 40mg Tablet.DR PO SCH (09:01)
[2017-12-27] MEDS: Protein Shake (high protein) 240ml (8oz) cup PO SCH ×3 (09:13→18:03)
[2017-12-27 09:18] LABS: BASOPHILS % (AUTO) 0.1 % (0-1); EOSINOPHILS # (AUTO) 0.4 X10'3 (0-0.9); EOSINOPHILS % (AUTO) 2.3 % (0-6); HEMATOCRIT 31.8 % (35.0-45.0); HEMOGLOBIN 10.2 g/dl (12.0-16.0); LYMPHOCYTES # (AUTO) 2.5 X10'3 (1.1-4.8); LYMPHOCYTES % (AUTO) 13.9 % (21-51); MEAN CORPUSCULAR HEMOGLOBIN 28.2 PG (27.0-31.0); MEAN CORPUSCULAR VOLUME 87.9 FL (78-98); MEAN PLATELET VOLUME 8.1 FL (7.4-10.4); MONOCYTES # (AUTO) 1.3 X10'3 (0-0.9); MONOCYTES % (AUTO) 7.2 % (2-12); NEUTROPHILS % (AUTO) 76.5 % (42-75); PLATELET COUNT 434 X10'3 (140-440); RED BLOOD COUNT 3.62 X10'6 (4.20-5.60); RED CELL DISTRIBUTION WIDTH 17.6 % (11.5-14.5); WHITE BLOOD COUNT 18.3 X10'3 (4.5-11.0)
[2017-12-27 09:28] LABS: ALBUMIN 2.9 G/DL (3.4-5.0); ANION GAP 7 (8-16); BLOOD UREA NITROGEN 17 MG/DL (7-18); BUN/CREATININE RATIO 21.5 (6.6-38.0); CALCIUM 9.6 MG/DL (8.5-10.1); CHLORIDE 98 MMOL/L (99-107); CREATININE 0.79 MG/DL (0.40-0.90); GLUCOSE 122 MG/DL (70-104); POTASSIUM 4.3 MMOL/L (3.5-5.1); SODIUM 138 MMOL/L (135-145); TOTAL CARBON DIOXIDE 32.9 MMOL/L (24-32); eGFR 75 ML/MIN
[2017-12-27] MEDS: K and/or MAG REPLACEMENT MC SCH (09:49)
[2017-12-27 11:12] VITALS: BP 106/65
[2017-12-27 19:30] VITALS: BP 122/79
[2017-12-27 23:30] VITALS: BP 98/54
[2017-12-28 06:17] LABS: BASOPHILS % (AUTO) 0.3 % (0-1); EOSINOPHILS # (AUTO) 0.3 X10'3 (0-0.9); HEMATOCRIT 27.9 % (35.0-45.0); HEMOGLOBIN 9.1 g/dl (12.0-16.0); LYMPHOCYTES # (AUTO) 2.1 X10'3 (1.1-4.8); LYMPHOCYTES % (AUTO) 12.9 % (21-51); MEAN CORPUSCULAR HEMOGLOBIN 27.9 PG (27.0-31.0); MEAN CORPUSCULAR HGB CONC 32.6 % (33.0-36.5); MEAN CORPUSCULAR VOLUME 85.6 FL (78-98); MEAN PLATELET VOLUME 7.9 FL (7.4-10.4); MONOCYTES # (AUTO) 0.9 X10'3 (0-0.9); MONOCYTES % (AUTO) 5.9 % (2-12); NEUTROPHILS # (AUTO) 12.6 X10'3 (1.8-7.7); NEUTROPHILS % (AUTO) 78.9 % (42-75); PLATELET COUNT 394 X10'3 (140-440); RED BLOOD COUNT 3.26 X10'6 (4.20-5.60); RED CELL DISTRIBUTION WIDTH 16.6 % (11.5-14.5)
[2017-12-28 06:31] LABS: ALBUMIN 2.6 G/DL (3.4-5.0); ANION GAP 6 (8-16); BLOOD UREA NITROGEN 22 MG/DL (7-18); BUN/CREATININE RATIO 25.3 (6.6-38.0); CALCIUM 9.3 MG/DL (8.5-10.1); CHLORIDE 96 MMOL/L (99-107); CREATININE 0.87 MG/DL (0.40-0.90); GLUCOSE 105 MG/DL (70-104); POTASSIUM 4.9 MMOL/L (3.5-5.1); SODIUM 135 MMOL/L (135-145); TOTAL CARBON DIOXIDE 33.4 MMOL/L (24-32); eGFR 67 ML/MIN
[2017-12-28 07:00] VITALS: BP_SYST 118; BP_SYST 190; BP_DIAS 70; BP_DIAS 73
[2017-12-28] MEDS: ipratropium/albuterol 3ml nebule NEB SCH ×4 (07:09→19:22)
[2017-12-28] MEDS: K and/or MAG REPLACEMENT MC SCH (07:15)
[2017-12-28] MEDS: Protein Shake (high protein) 240ml (8oz) cup PO SCH ×3 (08:00→18:00)
[2017-12-28] MEDS ORDERED: loperamide 2mg capsule PO ONE (09:30)
[2017-12-28] MEDS: predniSONE 20 mg tablet PO SCH (09:50)
[2017-12-28] MEDS: sulfamethoxazole/trimethoprim DS (800/160mg) tablet PO SCH (09:51)
[2017-12-28] MEDS: fenofibrate 48mg tablet PO SCH (09:51)
[2017-12-28] MEDS: lactobacillus rhamnosus 10,000 MMU CELLS/CAPSULE PO SCH ×2 (09:51→20:43)
[2017-12-28] MEDS: carvedilol 6.25mg tablet PO SCH ×2 (09:51→20:43)
[2017-12-28] MEDS: tacrolimus anhydrous 1mg capsule PO SCH ×2 (09:52→20:44)
[2017-12-28] MEDS: mycophenolate mofetil 250mg capsule PO SCH ×2 (09:53→20:42)
[2017-12-28] MEDS: venlafaxine XR 75mg capsule (Q24H) PO SCH (09:53)
[2017-12-28] MEDS: lisinopril 2.5mg tablet PO SCH (09:53)
[2017-12-28] MEDS: valacyclovir 500mg tablet PO SCH ×2 (09:53→20:44)
[2017-12-28] MEDS: guaiFENesin ER 600mg tablet PO SCH ×2 (09:54→20:43)
[2017-12-28] MEDS: atorvastatin 20mg tablet PO SCH (09:55)
[2017-12-28] MEDS: enoxaparin 30mg/0.3ml syringe SUBCUT SCH (09:56)
[2017-12-28] MEDS: morphine 10 MG/5 ML UD oral solution PO SCH ×2 (09:56→20:43)
[2017-12-28] MEDS: nystatin 500,000 unit/5ML UD oral suspension PO SCH ×3 (09:57→20:42)
[2017-12-28] MEDS: cefepime inj. 1 GM in dextrose 5%-water 50ml 50 ML IV SCH ×2 (09:57→16:52)
[2017-12-28] MEDS: pantoprazole 40mg Tablet.DR PO SCH (10:12)
[2017-12-28 11:00] VITALS: BP 127/78
[2017-12-28 19:45] VITALS: BP 114/66
[2017-12-28 23:45] VITALS: BP 119/71
[2017-12-29] MEDS: cefepime inj. 1 GM in dextrose 5%-water 50ml 50 ML IV SCH ×3 (00:47→17:00)
[2017-12-29] MEDS: normal saline 1000ml 1,000 ML IV SCH (02:24)
[2017-12-29 05:28] LABS: BASOPHILS % (AUTO) 0.1 % (0-1); EOSINOPHILS # (AUTO) 0.3 X10'3 (0-0.9); HEMATOCRIT 27.2 % (35.0-45.0); HEMOGLOBIN 8.9 g/dl (12.0-16.0); LYMPHOCYTES # (AUTO) 1.8 X10'3 (1.1-4.8); LYMPHOCYTES % (AUTO) 11.5 % (21-51); MEAN CORPUSCULAR HEMOGLOBIN 27.7 PG (27.0-31.0); MEAN CORPUSCULAR HGB CONC 32.6 % (33.0-36.5); MEAN CORPUSCULAR VOLUME 84.8 FL (78-98); MEAN PLATELET VOLUME 7.8 FL (7.4-10.4); MONOCYTES # (AUTO) 0.8 X10'3 (0-0.9); MONOCYTES % (AUTO) 5.1 % (2-12); NEUTROPHILS % (AUTO) 81.3 % (42-75); PLATELET COUNT 353 X10'3 (140-440)
[2017-12-29 05:31] LABS: ALBUMIN 2.5 G/DL (3.4-5.0); ANION GAP 5 (8-16); BLOOD UREA NITROGEN 26 MG/DL (7-18); BUN/CREATININE RATIO 30.2 (6.6-38.0); CALCIUM 9.5 MG/DL (8.5-10.1); CHLORIDE 97 MMOL/L (99-107); CREATININE 0.86 MG/DL (0.40-0.90); GLUCOSE 93 MG/DL (70-104); MAGNESIUM 1.9 MG/DL (1.5-2.4); POTASSIUM 4.9 MMOL/L (3.5-5.1); SODIUM 134 MMOL/L (135-145); TOTAL CARBON DIOXIDE 32.3 MMOL/L (24-32); eGFR 68 ML/MIN
[2017-12-29] MEDS: ipratropium/albuterol 3ml nebule NEB SCH ×4 (07:17→19:56)
[2017-12-29 07:18] VITALS: BP 97/63
[2017-12-29] MEDS: Protein Shake (high protein) 240ml (8oz) cup PO SCH ×3 (08:00→18:00)
[2017-12-29] MEDS: K and/or MAG REPLACEMENT MC SCH (08:00)
[2017-12-29] MEDS: sulfamethoxazole/trimethoprim DS (800/160mg) tablet PO SCH (10:04)
[2017-12-29] MEDS: morphine 10 MG/5 ML UD oral solution PO SCH ×2 (10:04→20:42)
[2017-12-29] MEDS: fenofibrate 48mg tablet PO SCH (10:05)
[2017-12-29] MEDS: lisinopril 2.5mg tablet PO SCH (10:05)
[2017-12-29] MEDS: lactobacillus rhamnosus 10,000 MMU CELLS/CAPSULE PO SCH ×2 (10:05→20:41)
[2017-12-29] MEDS: predniSONE 20 mg tablet PO SCH (10:06)
[2017-12-29] MEDS: carvedilol 6.25mg tablet PO SCH ×2 (10:06→20:00)
[2017-12-29] MEDS: pantoprazole 40mg Tablet.DR PO SCH (10:06)
[2017-12-29] MEDS: guaiFENesin ER 600mg tablet PO SCH ×2 (10:06→20:42)
[2017-12-29] MEDS: valacyclovir 500mg tablet PO SCH ×2 (10:07→20:41)
[2017-12-29] MEDS: mycophenolate mofetil 250mg capsule PO SCH ×2 (10:07→20:41)
[2017-12-29] MEDS: venlafaxine XR 75mg capsule (Q24H) PO SCH (10:07)
[2017-12-29] MEDS: atorvastatin 20mg tablet PO SCH (10:08)
[2017-12-29] MEDS: tacrolimus anhydrous 1mg capsule PO SCH ×2 (10:09→20:41)
[2017-12-29] MEDS: nystatin 500,000 unit/5ML UD oral suspension PO SCH ×3 (10:09→20:42)
[2017-12-29] MEDS: enoxaparin 30mg/0.3ml syringe SUBCUT SCH (10:16)
[2017-12-29 11:36] VITALS: BP 127/61
[2017-12-29 12:00] LABS: ABG BASE EXCESS 4.1 mmol/L (-2.0-3.0); ABG HCO3 28.9 mmol/L (22.0-26.0); ABG OXYGEN SATURATION 96.9 % (95-98); ABG PCO2 (T) 44.8 mmHg (32.0-45.0); ABG PH (T) 7.428 (7.350-7.450); ABG PO2 (T) 95.6 mmHg (83-108); ALLEN'S TEST Positive; FCOHb 0.3 % (0.5-1.5); FLOW 4 L/min; FMetHb 0.3 % (0.3-1.12); FO2Hb 96.3 % (94-100); TOTAL HEMOGLOBIN 9.7 G/dl (12.0-16.0)
[2017-12-29 19:00] VITALS: BP 100/57
[2017-12-29 20:48] LABS: % IRON SATURATION 5 % (11-46); IRON 17 UG/DL (49-151); TOTAL IRON BINDING CAPACITY 333 UG/DL (259-388)
[2017-12-30 00:10] VITALS: BP 94/60
[2017-12-30] MEDS: cefepime inj. 1 GM in dextrose 5%-water 50ml 50 ML IV SCH ×3 (00:15→17:28)
[2017-12-30] MEDS: normal saline 1000ml 1,000 ML IV SCH (00:15)
[2017-12-30 07:00] VITALS: BP 105/71
[2017-12-30] MEDS: Protein Shake (high protein) 240ml (8oz) cup PO SCH ×3 (08:00→18:00)
[2017-12-30] MEDS: K and/or MAG REPLACEMENT MC SCH (08:00)
[2017-12-30] MEDS: ipratropium/albuterol 3ml nebule NEB SCH ×4 (08:09→20:02)
[2017-12-30] MEDS: morphine 10 MG/5 ML UD oral solution PO SCH ×2 (09:04→20:47)
[2017-12-30] MEDS: lactobacillus rhamnosus 10,000 MMU CELLS/CAPSULE PO SCH ×2 (09:04→20:47)
[2017-12-30] MEDS: valacyclovir 500mg tablet PO SCH ×2 (09:05→20:47)
[2017-12-30] MEDS: atorvastatin 20mg tablet PO SCH (09:05)
[2017-12-30] MEDS: venlafaxine XR 75mg capsule (Q24H) PO SCH (09:06)
[2017-12-30] MEDS: pantoprazole 40mg Tablet.DR PO SCH (09:06)
[2017-12-30] MEDS: mycophenolate mofetil 250mg capsule PO SCH ×2 (09:06→20:47)
[2017-12-30] MEDS: carvedilol 6.25mg tablet PO SCH ×2 (09:07→20:48)
[2017-12-30] MEDS: guaiFENesin ER 600mg tablet PO SCH ×2 (09:07→20:48)
[2017-12-30] MEDS: fenofibrate 48mg tablet PO SCH (09:07)
[2017-12-30] MEDS: lisinopril 2.5mg tablet PO SCH (09:07)
[2017-12-30] MEDS: predniSONE 20 mg tablet PO SCH (09:07)
[2017-12-30] MEDS: sulfamethoxazole/trimethoprim DS (800/160mg) tablet PO SCH (09:08)
[2017-12-30] MEDS: tacrolimus anhydrous 1mg capsule PO SCH ×2 (09:08→20:47)
[2017-12-30] MEDS: nystatin 500,000 unit/5ML UD oral suspension PO SCH ×3 (09:10→20:46)
[2017-12-30] MEDS: enoxaparin 30mg/0.3ml syringe SUBCUT SCH (09:12)
[2017-12-30 11:32] VITALS: BP 105/72
[2017-12-30 18:30] VITALS: BP 113/62
[2017-12-30 22:50] VITALS: BP 118/72
[2017-12-31] MEDS: cefepime inj. 1 GM in dextrose 5%-water 50ml 50 ML IV SCH ×2 (00:30→08:28)
[2017-12-31] MEDS: normal saline 1000ml 1,000 ML IV SCH (02:24)
[2017-12-31 07:00] VITALS: BP 112/66
[2017-12-31] MEDS: ipratropium/albuterol 3ml nebule NEB SCH (07:05)
[2017-12-31] MEDS: K and/or MAG REPLACEMENT MC SCH (08:00)
[2017-12-31] MEDS: pantoprazole 40mg Tablet.DR PO SCH (08:28)
[2017-12-31] MEDS: mycophenolate mofetil 250mg capsule PO SCH (08:28)
[2017-12-31] MEDS: carvedilol 6.25mg tablet PO SCH (08:28)
[2017-12-31] MEDS: atorvastatin 20mg tablet PO SCH (08:29)
[2017-12-31] MEDS: lisinopril 2.5mg tablet PO SCH (08:29)
[2017-12-31] MEDS: lactobacillus rhamnosus 10,000 MMU CELLS/CAPSULE PO SCH (08:29)
[2017-12-31] MEDS: venlafaxine XR 75mg capsule (Q24H) PO SCH (08:29)
[2017-12-31] MEDS: fenofibrate 48mg tablet PO SCH (08:30)
[2017-12-31] MEDS: morphine 10 MG/5 ML UD oral solution PO SCH (08:30)
[2017-12-31] MEDS: nystatin 500,000 unit/5ML UD oral suspension PO SCH (08:30)
[2017-12-31] MEDS: Protein Shake (high protein) 240ml (8oz) cup PO SCH (08:30)
[2017-12-31] MEDS: sulfamethoxazole/trimethoprim DS (800/160mg) tablet PO SCH (08:30)
[2017-12-31] MEDS: guaiFENesin ER 600mg tablet PO SCH (08:30)
[2017-12-31] MEDS: valacyclovir 500mg tablet PO SCH (08:31)
[2017-12-31] MEDS: predniSONE 20 mg tablet PO SCH (08:31)
[2017-12-31] MEDS: tacrolimus anhydrous 1mg capsule PO SCH (08:31)
[2017-12-31] MEDS: enoxaparin 30mg/0.3ml syringe SUBCUT SCH (08:31)
== END 2017-12-31 11:30 | disposition home health service (06) | DRG 720 ==
LOC: ER 16:22 → ED HOLD 20:27 → EDBEDREQ 12-19 12:09 → MED 3N 12-19 13:20
PROVIDERS: ADMIT Family Medicine; ATTEND Legal Medicine
DX: A41.9 Sepsis, unspecified organism (principal); J96.20 Acute and chronic respiratory failure, unspecified whether with hypoxia or hypercapnia; J18.1 Lobar pneumonia, unspecified organism; R64 Cachexia; Z94.2 Lung transplant status; B37.0 Candidal stomatitis; J44.0 Chronic obstructive pulmonary disease with (acute) lower respiratory infection; J44.1 Chronic obstructive pulmonary disease with (acute) exacerbation; Z99.81 Dependence on supplemental oxygen; I10 Essential (primary) hypertension; B00.2 Herpesviral gingivostomatitis and pharyngotonsillitis; D64.9 Anemia, unspecified; E78.5 Hyperlipidemia, unspecified; F41.9 Anxiety disorder, unspecified; G89.29 Other chronic pain; F32.9 Major depressive disorder, single episode, unspecified; R79.1 Abnormal coagulation profile; M54.9 Dorsalgia, unspecified; I25.10 Atherosclerotic heart disease of native coronary artery without angina pectoris; K21.9 Gastro-esophageal reflux disease without esophagitis; Z82.3 Family history of stroke; Z82.49 Family history of ischemic heart disease and other diseases of the circulatory system; I25.2 Old myocardial infarction; Z83.3 Family history of diabetes mellitus; Z87.891 Personal history of nicotine dependence; Z88.1 Allergy status to other antibiotic agents; E87.6 Hypokalemia
CPT/HCPCS: 36415; 36600; 71046; 71275; 80048; 80053; 82607; 82746; 82803; 83540; 83550; 83605; 83735; 84484; 85018; 85025; 85379; 87040; 87070; 93005; 94640; 94667; 94668; 94760; 96365; 97110; 97116; 97161; 97530; 99285; A6212; A6213; A6258; J0692; J1650; J1956; J2405; J2543; J7030; J7060; J7507; J7512; J7517; Q9967

== ENCOUNTER 2018-01-07 18:51 | Inpatient (IN) | payer MEDICAID ==
[~2018-01-07] VITALS: Ht 144.8 cm; Wt 30.4 kg
[~2018-01-07 18:51] MED LIST changes: +[UNRECOGNIZED DRUG - CODE] PO
[2018-01-07 19:35] LABS: BASOPHILS % (AUTO) 0 % (0-1); EOSINOPHILS # (AUTO) 0.2 X10'3 (0-0.9); EOSINOPHILS % (AUTO) 1.2 % (0-6); HEMATOCRIT 28.6 % (35.0-45.0); HEMOGLOBIN 9.2 g/dl (12.0-16.0); LYMPHOCYTES # (AUTO) 2.1 X10'3 (1.1-4.8); LYMPHOCYTES % (AUTO) 11.5 % (21-51); MEAN CORPUSCULAR HEMOGLOBIN 27.6 PG (27.0-31.0); MEAN CORPUSCULAR HGB CONC 32.1 % (33.0-36.5); MEAN PLATELET VOLUME 7.7 FL (7.4-10.4); MONOCYTES % (AUTO) 5.6 % (2-12); NEUTROPHILS # (AUTO) 14.6 X10'3 (1.8-7.7); NEUTROPHILS % (AUTO) 81.7 % (42-75); PLATELET COUNT 464 X10'3 (140-440); RED BLOOD COUNT 3.33 X10'6 (4.20-5.60); RED CELL DISTRIBUTION WIDTH 18.2 % (11.5-14.5); WHITE BLOOD COUNT 17.9 X10'3 (4.5-11.0)
[2018-01-07 19:48] LABS: ALANINE AMINOTRANSFERASE 15 U/L (12-78); ALBUMIN 2.8 G/DL (3.4-5.0); ALBUMIN/GLOBULIN RATIO 0.7 (1.1-1.5); ALKALINE PHOSPHATASE 63 IU/L (46-116); ANION GAP 9 (8-16); ASPARTATE AMINO TRANSFERASE 14 U/L (10-37); BILIRUBIN,TOTAL 0.2 MG/DL (0.1-1.0); BLOOD UREA NITROGEN 19 MG/DL (7-18); CALCIUM 9.5 MG/DL (8.5-10.1); CHLORIDE 101 MMOL/L (99-107); CREATININE 0.76 MG/DL (0.40-0.90); GLUCOSE 135 MG/DL (70-104); POTASSIUM 3.9 MMOL/L (3.5-5.1); SODIUM 142 MMOL/L (135-145); TOTAL CARBON DIOXIDE 32.2 MMOL/L (24-32); TOTAL PROTEIN 7.1 G/DL (6.4-8.2); eGFR 78 ML/MIN
[2018-01-07] MEDS ORDERED: methylPREDNISolone sod succ 125mg/2ml vial IV ONE (20:00)
[2018-01-07] MEDS ORDERED: albuterol 2.5 MG/3 ML nebule CONTNEB PRN (20:00)
[2018-01-07] MEDS ORDERED: temazepam 15mg capsule PO PRN (21:00)
[2018-01-07 22:31] LABS: ANISOCYTOSIS 2+; PLATELET ESTIMATE INCREASED; TOTAL CELLS COUNTED 100; TOXIC GRANULATION 2+
[2018-01-07 22:32] LABS: HYPOCHROMASIA 2+; TARGET CELLS FEW
[2018-01-07] MEDS ORDERED: nitroGLYCERIN 0.4mg SUBLingual tab SL PRN (22:45)
[2018-01-07] MEDS ORDERED: metoclopramide 5 mg/ml inj IV PRN (23:00)
[2018-01-07] MEDS ORDERED: HYDROcodone/acetaminophen 5mg/325mg tablet PO PRN (23:00)
[2018-01-07] MEDS ORDERED: acetaminophen 325mg tablet PO PRN (23:00)
[2018-01-07] MEDS ORDERED: diphenhydrAMINE 50 mg/ml inj IV PRN (23:00)
[2018-01-07] MEDS ORDERED: acetaminophen 650mg rectal suppository RC PRN (23:00)
[2018-01-07] MEDS ORDERED: diphenhydrAMINE 25mg capsule PO PRN (23:00)
[2018-01-07] MEDS ORDERED: HYDROcodone/acetaminophen 10/325mg tab PO PRN (23:00)
[2018-01-07] MEDS ORDERED: bisacodyl 10mg suppository rectal RC PRN (23:00)
[2018-01-07] MEDS ORDERED: ondansetron/PF 4mg/2ml inj IV PRN (23:00)
[2018-01-07] MEDS ORDERED: magnesium hydroxide 30ml (MOM) UD suspension PO PRN (23:00)
[2018-01-07] MEDS ORDERED: HYDROmorphone inj. 0.5 MG/0.5 ML DISP.SYRIN IV PRN ×2 (23:00)
[2018-01-07] MEDS ORDERED: mag hydrox/Alum hydrox/simeth 30ml oral suspension PO PRN (23:00)
[2018-01-07] MEDS ORDERED: albuterol 2.5 MG/3 ML nebule NEB PRN (23:20)
[2018-01-07 23:25] LABS: PARTIAL THROMBOPLASTIN TIME 27 SECONDS (22-32); PROTHROMBIN TIME 10.3 SECONDS (9.0-12.0)
[2018-01-07 23:29] LABS: HEMOGLOBIN A1C 6.4 % (4.5-6.2)
[2018-01-07 23:37] LABS: PHOSPHORUS 3.1 MG/DL (2.3-4.5)
[2018-01-08] VITALS: BP 156/81
[2018-01-08] MEDS ORDERED: ondansetron 4mg rapidly disintigrating tab PO PRN
[2018-01-08] MEDS: normal saline 1000ml 1,000 ML IV SCH ×3 (00:25→21:40)
[2018-01-08] MEDS: morphine 4 MG/ML inj SYRINge IV PRN ×3 (00:25→21:51)
[2018-01-08] MEDS: cefepime 1GM/NS ADD-VANTAGE 100 ML IV SCH ×2 (00:54→22:22)
[2018-01-08 01:08] LABS: CLARITY,URINE CLEAR (Clear); COLOR,URINE YELLOW (Yellow); GLUCOSE, URINE 500 mg/dl (Neg); KETONES,URINE NEGATIVE (Neg); LEUKOCYTE ESTERASE ,URINE NEGATIVE (Neg); NITRITES, URINE NEGATIVE (Neg); OCCULT BLOOD,URINE NEGATIVE (Neg); PH,URINE 5.5 (4.8-8.0); PROTEIN,URINE TRACE mg/dl (Neg); UROBILINOGEN,URINE 0.2 E.U/dL (0.2-1.0)
[2018-01-08 01:11] LABS: UA COLLECTION TYPE CLN CATCH MIDSTREAM
[2018-01-08 01:24] LABS: RBC,URINE NONE SEEN /HPF (0-2); SQUAMOUS EPITHELIAL CELL,UR NONE SEEN /LPF (FEW); WBC,URINE 0-4 /HPF (0-4)
[2018-01-08 01:25] LABS: BACTERIA,URINE NONE SEEN /HPF (Neg)
[2018-01-08] MEDS ORDERED: normal saline 1000ml 1,000 ML IVB ONE (01:47)
[2018-01-08 02:00] VITALS: BP 105/74
[2018-01-08 03:18] LABS: BASOPHILS % (AUTO) 0 % (0-1); EOSINOPHILS # (AUTO) 0.3 X10'3 (0-0.9); EOSINOPHILS % (AUTO) 1.6 % (0-6); HEMATOCRIT 23.7 % (35.0-45.0); HEMOGLOBIN 7.7 g/dl (12.0-16.0); LYMPHOCYTES # (AUTO) 0.4 X10'3 (1.1-4.8); LYMPHOCYTES % (AUTO) 2.1 % (21-51); MEAN CORPUSCULAR HGB CONC 32.4 % (33.0-36.5); MEAN CORPUSCULAR VOLUME 86.4 FL (78-98); MEAN PLATELET VOLUME 7.7 FL (7.4-10.4); MONOCYTES % (AUTO) 0.1 % (2-12); NEUTROPHILS # (AUTO) 16.6 X10'3 (1.8-7.7); NEUTROPHILS % (AUTO) 96.2 % (42-75); PLATELET COUNT 372 X10'3 (140-440); RED BLOOD COUNT 2.75 X10'6 (4.20-5.60); RED CELL DISTRIBUTION WIDTH 17.5 % (11.5-14.5); WHITE BLOOD COUNT 17.2 X10'3 (4.5-11.0)
[2018-01-08 03:37] LABS: ALANINE AMINOTRANSFERASE 12 U/L (12-78); ALBUMIN 2.2 G/DL (3.4-5.0); ALBUMIN/GLOBULIN RATIO 0.6 (1.1-1.5); ALKALINE PHOSPHATASE 52 IU/L (46-116); ANION GAP 10 (8-16); ASPARTATE AMINO TRANSFERASE 9 U/L (10-37); BILIRUBIN,TOTAL 0.1 MG/DL (0.1-1.0); BLOOD UREA NITROGEN 16 MG/DL (7-18); BUN/CREATININE RATIO 21.1 (6.6-38.0); CALCIUM 8.3 MG/DL (8.5-10.1); CHLORIDE 105 MMOL/L (99-107); CHOL/HDL RATIO 2.7 (0.00-4.99); CHOLESTEROL 163 MG/DL (0-200); CREATININE 0.76 MG/DL (0.40-0.90); GLUCOSE 216 MG/DL (70-104); HDL CHOLESTEROL 61 MG/DL (35-60); LDL CHOLESTEROL 86 MG/DL (50-100); POTASSIUM 3.4 MMOL/L (3.5-5.1); SODIUM 143 MMOL/L (135-145); TOTAL CARBON DIOXIDE 27.6 MMOL/L (24-32); TOTAL PROTEIN 6.1 G/DL (6.4-8.2); TRIGLYCERIDES 69 MG/DL (20-135); eGFR 78 ML/MIN
[2018-01-08 06:00] VITALS: BP 112/71
[2018-01-08] MEDS: MORPHINE SULFATE 10 MG PO SCH ×2 (08:00→20:00)
[2018-01-08] MEDS ORDERED: MORPHINE SULFATE PO SCH (08:00)
[2018-01-08] MEDS: docusate sod 100mg capsule PO SCH ×2 (08:00→21:49)
[2018-01-08] MEDS ORDERED: IRON-12 (08:18)
[2018-01-08] MEDS ORDERED: PRED5TAB PO (08:19)
[2018-01-08] MEDS: sulfamethoxazole/trimethoprim DS (800/160mg) tablet PO SCH (09:20)
[2018-01-08] MEDS: tacrolimus anhydrous 0.5mg capsule PO SCH (09:20)
[2018-01-08] MEDS: atorvastatin 20mg tablet PO SCH (09:20)
[2018-01-08] MEDS: aspirin 81mg tablet.DR PO SCH (09:20)
[2018-01-08] MEDS: carvedilol 6.25mg tablet PO SCH ×2 (09:20→21:50)
[2018-01-08] MEDS: ticagrelor 90mg tablet PO SCH ×2 (09:20→21:49)
[2018-01-08] MEDS: mycophenolate mofetil 250mg capsule PO SCH ×2 (09:21→21:49)
[2018-01-08] MEDS: lisinopril 2.5mg tablet PO SCH (09:21)
[2018-01-08] MEDS: predniSONE 20 mg tablet PO SCH (09:21)
[2018-01-08] MEDS: fenofibrate 48mg tablet PO SCH (09:21)
[2018-01-08] MEDS: pantoprazole 40mg Tablet.DR PO SCH (09:21)
[2018-01-08] MEDS: venlafaxine XR 75mg capsule (Q24H) PO SCH (09:22)
[2018-01-08] MEDS: lactobacillus rhamnosus 10,000 MMU CELLS/CAPSULE PO SCH ×2 (09:22→21:49)
[2018-01-08] MEDS: tacrolimus anhydrous 1mg capsule PO SCH ×2 (09:24→21:50)
[2018-01-08] MEDS: ipratropium/albuterol 3ml nebule IH PRN ×3 (10:01→20:29)
[2018-01-08 11:00] VITALS: BP 130/83
[2018-01-08] MEDS: methylPREDNISolone sod succ/PF 40mg inj. IV SCH ×2 (14:12→21:51)
[2018-01-08 18:00] VITALS: BP 116/74
[2018-01-08 20:39] LABS: OCCULT BLOOD STOOL POSITIVE (Neg)
[2018-01-08 22:00] VITALS: BP 123/71
[2018-01-08] MEDS ORDERED: potassium Cl 20 mEq SR tablet PO PRN ×2 (22:15)
[2018-01-08] MEDS ORDERED: potassium Cl 40MEQ/NS 500ml 500 ML IV PRN ×2 (22:15)
[2018-01-09] VITALS (18 sets, daily range): BP systolic 100–164; BP diastolic 66–104
[2018-01-09] MEDS: methylPREDNISolone sod succ/PF 40mg inj. IV SCH (02:06)
[2018-01-09] MEDS: ipratropium/albuterol 3ml nebule IH PRN ×4 (03:30→23:06)
[2018-01-09] MEDS: normal saline 1000ml 1,000 ML IV SCH ×2 (04:58→14:58)
[2018-01-09 06:02] LABS: BASOPHILS % (AUTO) 0 % (0-1); EOSINOPHILS # (AUTO) 0.2 X10'3 (0-0.9); HEMATOCRIT 22.1 % (35.0-45.0); HEMOGLOBIN 7.1 g/dl (12.0-16.0); LYMPHOCYTES # (AUTO) 0.6 X10'3 (1.1-4.8); LYMPHOCYTES % (AUTO) 3.3 % (21-51); MEAN CORPUSCULAR HEMOGLOBIN 27.9 PG (27.0-31.0); MEAN CORPUSCULAR HGB CONC 32.2 % (33.0-36.5); MEAN CORPUSCULAR VOLUME 86.5 FL (78-98); MONOCYTES # (AUTO) 0.2 X10'3 (0-0.9); MONOCYTES % (AUTO) 0.9 % (2-12); NEUTROPHILS # (AUTO) 18.5 X10'3 (1.8-7.7); NEUTROPHILS % (AUTO) 94.8 % (42-75); PLATELET COUNT 402 X10'3 (140-440); RED BLOOD COUNT 2.56 X10'6 (4.20-5.60); RED CELL DISTRIBUTION WIDTH 17.9 % (11.5-14.5); WHITE BLOOD COUNT 19.5 X10'3 (4.5-11.0)
[2018-01-09 06:20] LABS: ALANINE AMINOTRANSFERASE 12 U/L (12-78); ALBUMIN 2.2 G/DL (3.4-5.0); ALBUMIN/GLOBULIN RATIO 0.6 (1.1-1.5); ALKALINE PHOSPHATASE 49 IU/L (46-116); ANION GAP 6 (8-16); ASPARTATE AMINO TRANSFERASE 14 U/L (10-37); BILIRUBIN,TOTAL 0.1 MG/DL (0.1-1.0); BLOOD UREA NITROGEN 12 MG/DL (7-18); BUN/CREATININE RATIO 21.1 (6.6-38.0); CALCIUM 8.4 MG/DL (8.5-10.1); CHLORIDE 108 MMOL/L (99-107); CREATININE 0.57 MG/DL (0.40-0.90); GLUCOSE 138 MG/DL (70-104); MAGNESIUM 1.9 MG/DL (1.5-2.4); POTASSIUM 4.3 MMOL/L (3.5-5.1); SODIUM 141 MMOL/L (135-145); TOTAL CARBON DIOXIDE 26.8 MMOL/L (24-32); TOTAL PROTEIN 5.9 G/DL (6.4-8.2); eGFR > 90 ML/MIN
[2018-01-09] MEDS: MORPHINE SULFATE 10 MG PO SCH ×2 (08:00→20:00)
[2018-01-09] MEDS ORDERED: fluconazole 100mg tablet PO SCH (08:00)
[2018-01-09] MEDS: atorvastatin 20mg tablet PO SCH (08:03)
[2018-01-09] MEDS: aspirin 81mg tablet.DR PO SCH (08:03)
[2018-01-09] MEDS: lactobacillus rhamnosus 10,000 MMU CELLS/CAPSULE PO SCH ×2 (08:03→21:20)
[2018-01-09] MEDS: sulfamethoxazole/trimethoprim DS (800/160mg) tablet PO SCH (08:03)
[2018-01-09] MEDS: ticagrelor 90mg tablet PO SCH ×2 (08:04→21:21)
[2018-01-09] MEDS: docusate sod 100mg capsule PO SCH ×2 (08:04→21:16)
[2018-01-09] MEDS: pantoprazole 40mg Tablet.DR PO SCH (08:04)
[2018-01-09] MEDS: mycophenolate mofetil 250mg capsule PO SCH ×2 (08:04→21:21)
[2018-01-09] MEDS: predniSONE 20 mg tablet PO SCH (08:05)
[2018-01-09] MEDS: lisinopril 2.5mg tablet PO SCH (08:05)
[2018-01-09] MEDS: fenofibrate 48mg tablet PO SCH (08:05)
[2018-01-09] MEDS: carvedilol 6.25mg tablet PO SCH ×2 (08:05→21:21)
[2018-01-09] MEDS: venlafaxine XR 75mg capsule (Q24H) PO SCH (08:07)
[2018-01-09] MEDS: tacrolimus anhydrous 1mg capsule PO SCH ×2 (08:13→21:20)
[2018-01-09] MEDS: tacrolimus anhydrous 0.5mg capsule PO SCH (08:13)
[2018-01-09] MEDS: morphine 4 MG/ML inj SYRINge IV PRN ×2 (08:26→23:25)
[2018-01-09 11:14] LABS: BASOPHILS % (AUTO) 0 % (0-1); EOSINOPHILS % (AUTO) 0 % (0-6); HEMATOCRIT 24.6 % (35.0-45.0); HEMOGLOBIN 7.8 g/dl (12.0-16.0); LYMPHOCYTES # (AUTO) 0.7 X10'3 (1.1-4.8); LYMPHOCYTES % (AUTO) 3.1 % (21-51); MEAN CORPUSCULAR HEMOGLOBIN 27.6 PG (27.0-31.0); MEAN CORPUSCULAR HGB CONC 31.6 % (33.0-36.5); MEAN CORPUSCULAR VOLUME 87.2 FL (78-98); MEAN PLATELET VOLUME 7.6 FL (7.4-10.4); MONOCYTES # (AUTO) 0.4 X10'3 (0-0.9); NEUTROPHILS # (AUTO) 19.8 X10'3 (1.8-7.7); NEUTROPHILS % (AUTO) 94.9 % (42-75); PLATELET COUNT 435 X10'3 (140-440); RED BLOOD COUNT 2.82 X10'6 (4.20-5.60); RED CELL DISTRIBUTION WIDTH 17.8 % (11.5-14.5); WHITE BLOOD COUNT 20.9 X10'3 (4.5-11.0)
[2018-01-09] MEDS: cefepime 1GM/NS ADD-VANTAGE 100 ML IV SCH ×2 (15:38→23:26)
[2018-01-09] MEDS ORDERED: normal saline 1000ml 1,000 ML IV SCH (15:52)
[2018-01-09] MEDS ORDERED: simethicone 40mg/0.6ml oral drops 30ml MC ONE (15:55)
[2018-01-09] MEDS ORDERED: fentaNYL/PF 50MCG/1 ML 2ML syringe IV PRN (15:55)
[2018-01-09] MEDS ORDERED: LIDOcaine Viscous 15ml cup PO ONE (15:55)
[2018-01-09] MEDS ORDERED: MIDAZolam 5mg/5ml vial IV PRN (15:55)
[2018-01-09] MEDS ORDERED: MIDAZolam 5mg/5ml vial ONE (17:27)
[2018-01-09] MEDS ORDERED: fentaNYL/PF 50MCG/1 ML 2ML syringe ONE (17:27)
[2018-01-09] MEDS ORDERED: LIDOcaine Viscous 15ml cup ONE (17:28)
[2018-01-09] MEDS: fluconazole 100mg tablet PO SCH (21:22)
[2018-01-09 22:45] LABS: BASOPHILS % (AUTO) 0.1 % (0-1); EOSINOPHILS # (AUTO) 0.2 X10'3 (0-0.9); HEMATOCRIT 23.5 % (35.0-45.0); HEMOGLOBIN 7.6 g/dl (12.0-16.0); LYMPHOCYTES # (AUTO) 1.1 X10'3 (1.1-4.8); LYMPHOCYTES % (AUTO) 6.2 % (21-51); MEAN CORPUSCULAR HEMOGLOBIN 27.1 PG (27.0-31.0); MEAN CORPUSCULAR HGB CONC 32.2 % (33.0-36.5); MEAN CORPUSCULAR VOLUME 84.1 FL (78-98); MEAN PLATELET VOLUME 7.6 FL (7.4-10.4); MONOCYTES # (AUTO) 0.7 X10'3 (0-0.9); MONOCYTES % (AUTO) 3.9 % (2-12); NEUTROPHILS # (AUTO) 16.4 X10'3 (1.8-7.7); NEUTROPHILS % (AUTO) 88.8 % (42-75); PLATELET COUNT 385 X10'3 (140-440); RED BLOOD COUNT 2.79 X10'6 (4.20-5.60); RED CELL DISTRIBUTION WIDTH 17.5 % (11.5-14.5); WHITE BLOOD COUNT 18.5 X10'3 (4.5-11.0)
[2018-01-10] VITALS (7 sets, daily range): BP systolic 93–150; BP diastolic 59–95
[2018-01-10] MEDS: normal saline 1000ml 1,000 ML IV SCH ×2 (01:29→10:58)
[2018-01-10] MEDS: ipratropium/albuterol 3ml nebule IH PRN ×5 (04:36→23:09)
[2018-01-10 05:48] LABS: BASOPHILS % (AUTO) 0 % (0-1); EOSINOPHILS # (AUTO) 0.2 X10'3 (0-0.9); EOSINOPHILS % (AUTO) 1.7 % (0-6); HEMATOCRIT 22.8 % (35.0-45.0); HEMOGLOBIN 7.4 g/dl (12.0-16.0); LYMPHOCYTES # (AUTO) 1.3 X10'3 (1.1-4.8); LYMPHOCYTES % (AUTO) 9.3 % (21-51); MEAN CORPUSCULAR HEMOGLOBIN 27.7 PG (27.0-31.0); MEAN CORPUSCULAR HGB CONC 32.4 % (33.0-36.5); MEAN CORPUSCULAR VOLUME 85.6 FL (78-98); MEAN PLATELET VOLUME 7.6 FL (7.4-10.4); MONOCYTES # (AUTO) 0.9 X10'3 (0-0.9); MONOCYTES % (AUTO) 6.6 % (2-12); NEUTROPHILS # (AUTO) 11.3 X10'3 (1.8-7.7); NEUTROPHILS % (AUTO) 82.4 % (42-75); PLATELET COUNT 454 X10'3 (140-440); RED BLOOD COUNT 2.67 X10'6 (4.20-5.60); RED CELL DISTRIBUTION WIDTH 17.5 % (11.5-14.5); WHITE BLOOD COUNT 13.7 X10'3 (4.5-11.0)
[2018-01-10 06:01] LABS: ALANINE AMINOTRANSFERASE 13 U/L (12-78); ALBUMIN 2.4 G/DL (3.4-5.0); ALBUMIN/GLOBULIN RATIO 0.7 (1.1-1.5); ALKALINE PHOSPHATASE 53 IU/L (46-116); ANION GAP 6 (8-16); ASPARTATE AMINO TRANSFERASE 18 U/L (10-37); BILIRUBIN,TOTAL 0.1 MG/DL (0.1-1.0); BLOOD UREA NITROGEN 14 MG/DL (7-18); BUN/CREATININE RATIO 22.6 (6.6-38.0); CALCIUM 8.6 MG/DL (8.5-10.1); CHLORIDE 106 MMOL/L (99-107); CREATININE 0.62 MG/DL (0.40-0.90); GLUCOSE 77 MG/DL (70-104); MAGNESIUM 1.8 MG/DL (1.5-2.4); POTASSIUM 3.9 MMOL/L (3.5-5.1); SODIUM 139 MMOL/L (135-145); TOTAL CARBON DIOXIDE 26.6 MMOL/L (24-32); eGFR > 90 ML/MIN
[2018-01-10] MEDS: predniSONE 20 mg tablet PO SCH (07:18)
[2018-01-10] MEDS: pantoprazole 40mg Tablet.DR PO SCH (07:18)
[2018-01-10] MEDS: lisinopril 2.5mg tablet PO SCH (07:18)
[2018-01-10] MEDS: aspirin 81mg tablet.DR PO SCH (07:18)
[2018-01-10] MEDS: carvedilol 6.25mg tablet PO SCH ×2 (07:18→19:24)
[2018-01-10] MEDS: lactobacillus rhamnosus 10,000 MMU CELLS/CAPSULE PO SCH ×2 (07:18→19:25)
[2018-01-10] MEDS: tacrolimus anhydrous 1mg capsule PO SCH ×2 (07:18→19:24)
[2018-01-10] MEDS: venlafaxine XR 75mg capsule (Q24H) PO SCH (07:19)
[2018-01-10] MEDS: fenofibrate 48mg tablet PO SCH (07:19)
[2018-01-10] MEDS: docusate sod 100mg capsule PO SCH ×2 (07:19→19:24)
[2018-01-10] MEDS: atorvastatin 20mg tablet PO SCH (07:19)
[2018-01-10] MEDS: mycophenolate mofetil 250mg capsule PO SCH ×2 (07:19→19:24)
[2018-01-10] MEDS: sulfamethoxazole/trimethoprim DS (800/160mg) tablet PO SCH (07:19)
[2018-01-10] MEDS: tacrolimus anhydrous 0.5mg capsule PO SCH (07:19)
[2018-01-10] MEDS: ticagrelor 90mg tablet PO SCH ×2 (07:20→19:24)
[2018-01-10] MEDS: fluconazole 100mg tablet PO SCH (07:20)
[2018-01-10] MEDS: cefepime 1GM/NS ADD-VANTAGE 100 ML IV SCH ×2 (07:27→16:25)
[2018-01-10] MEDS: morphine 4 MG/ML inj SYRINge IV PRN ×2 (07:27→19:23)
[2018-01-10] MEDS: MORPHINE SULFATE 10 MG PO SCH ×2 (07:28→19:25)
[2018-01-10] MEDS ORDERED: furosemide 20MG tablet PO ONE (08:35)
[2018-01-10 11:36] LABS: BASOPHILS % (AUTO) 0 % (0-1); EOSINOPHILS % (AUTO) 0.1 % (0-6); HEMATOCRIT 25.6 % (35.0-45.0); HEMOGLOBIN 8.2 g/dl (12.0-16.0); LYMPHOCYTES # (AUTO) 0.8 X10'3 (1.1-4.8); MEAN CORPUSCULAR HEMOGLOBIN 27.5 PG (27.0-31.0); MEAN CORPUSCULAR HGB CONC 32.2 % (33.0-36.5); MEAN CORPUSCULAR VOLUME 85.4 FL (78-98); MEAN PLATELET VOLUME 7.6 FL (7.4-10.4); MONOCYTES % (AUTO) 0.2 % (2-12); NEUTROPHILS % (AUTO) 95.7 % (42-75); PLATELET COUNT 488 X10'3 (140-440); RED CELL DISTRIBUTION WIDTH 17.1 % (11.5-14.5); WHITE BLOOD COUNT 19.9 X10'3 (4.5-11.0)
[2018-01-10 19:58] LABS: BASOPHILS % (AUTO) 0.2 % (0-1); EOSINOPHILS # (AUTO) 0.2 X10'3 (0-0.9); EOSINOPHILS % (AUTO) 1.2 % (0-6); HEMATOCRIT 25.4 % (35.0-45.0); HEMOGLOBIN 8.2 g/dl (12.0-16.0); LYMPHOCYTES # (AUTO) 0.9 X10'3 (1.1-4.8); LYMPHOCYTES % (AUTO) 6.8 % (21-51); MEAN CORPUSCULAR HEMOGLOBIN 27.5 PG (27.0-31.0); MEAN CORPUSCULAR HGB CONC 32.3 % (33.0-36.5); MEAN CORPUSCULAR VOLUME 85.2 FL (78-98); MEAN PLATELET VOLUME 7.7 FL (7.4-10.4); MONOCYTES # (AUTO) 0.6 X10'3 (0-0.9); MONOCYTES % (AUTO) 4.7 % (2-12); NEUTROPHILS % (AUTO) 87.1 % (42-75); PLATELET COUNT 479 X10'3 (140-440); RED BLOOD COUNT 2.98 X10'6 (4.20-5.60); RED CELL DISTRIBUTION WIDTH 17.7 % (11.5-14.5); WHITE BLOOD COUNT 12.6 X10'3 (4.5-11.0)
[2018-01-11] MEDS: cefepime 1GM/NS ADD-VANTAGE 100 ML IV SCH ×3 (00:07→15:33)
[2018-01-11 03:00] VITALS: BP 107/63
[2018-01-11 06:00] VITALS: BP 115/67
[2018-01-11 06:22] LABS: BASOPHILS # (AUTO) 0.1 X10'3 (0-0.2); BASOPHILS % (AUTO) 0.4 % (0-1); EOSINOPHILS # (AUTO) 0.3 X10'3 (0-0.9); EOSINOPHILS % (AUTO) 2.2 % (0-6); HEMATOCRIT 25.9 % (35.0-45.0); HEMOGLOBIN 8.4 g/dl (12.0-16.0); LYMPHOCYTES # (AUTO) 1.1 X10'3 (1.1-4.8); MEAN CORPUSCULAR HEMOGLOBIN 27.7 PG (27.0-31.0); MEAN CORPUSCULAR HGB CONC 32.4 % (33.0-36.5); MEAN CORPUSCULAR VOLUME 85.5 FL (78-98); MEAN PLATELET VOLUME 7.7 FL (7.4-10.4); MONOCYTES # (AUTO) 0.7 X10'3 (0-0.9); MONOCYTES % (AUTO) 5.7 % (2-12); NEUTROPHILS # (AUTO) 10.4 X10'3 (1.8-7.7); NEUTROPHILS % (AUTO) 82.7 % (42-75); PLATELET COUNT 461 X10'3 (140-440); RED BLOOD COUNT 3.02 X10'6 (4.20-5.60); RED CELL DISTRIBUTION WIDTH 17.5 % (11.5-14.5); WHITE BLOOD COUNT 12.5 X10'3 (4.5-11.0)
[2018-01-11 07:09] LABS: ALANINE AMINOTRANSFERASE 18 U/L (12-78); ALBUMIN 2.3 G/DL (3.4-5.0); ALBUMIN/GLOBULIN RATIO 0.6 (1.1-1.5); ALKALINE PHOSPHATASE 55 IU/L (46-116); ANION GAP 7 (8-16); ASPARTATE AMINO TRANSFERASE 18 U/L (10-37); BILIRUBIN,TOTAL 0.2 MG/DL (0.1-1.0); BLOOD UREA NITROGEN 26 MG/DL (7-18); BUN/CREATININE RATIO 32.9 (6.6-38.0); CALCIUM 8.8 MG/DL (8.5-10.1); CHLORIDE 104 MMOL/L (99-107); CREATININE 0.79 MG/DL (0.40-0.90); GLUCOSE 110 MG/DL (70-104); MAGNESIUM 1.8 MG/DL (1.5-2.4); POTASSIUM 3.1 MMOL/L (3.5-5.1); SODIUM 143 MMOL/L (135-145); TOTAL CARBON DIOXIDE 32.4 MMOL/L (24-32); eGFR 75 ML/MIN
[2018-01-11] MEDS: lactobacillus rhamnosus 10,000 MMU CELLS/CAPSULE PO SCH (07:42)
[2018-01-11] MEDS: atorvastatin 20mg tablet PO SCH (07:42)
[2018-01-11] MEDS: docusate sod 100mg capsule PO SCH (07:43)
[2018-01-11] MEDS: fenofibrate 48mg tablet PO SCH (07:43)
[2018-01-11] MEDS: ticagrelor 90mg tablet PO SCH (07:43)
[2018-01-11] MEDS: aspirin 81mg tablet.DR PO SCH (07:44)
[2018-01-11] MEDS: predniSONE 20 mg tablet PO SCH (07:44)
[2018-01-11] MEDS: tacrolimus anhydrous 0.5mg capsule PO SCH (07:45)
[2018-01-11] MEDS: sulfamethoxazole/trimethoprim DS (800/160mg) tablet PO SCH (07:45)
[2018-01-11] MEDS: tacrolimus anhydrous 1mg capsule PO SCH (07:45)
[2018-01-11] MEDS: venlafaxine XR 75mg capsule (Q24H) PO SCH (07:45)
[2018-01-11] MEDS: fluconazole 100mg tablet PO SCH (07:46)
[2018-01-11] MEDS: mycophenolate mofetil 250mg capsule PO SCH (07:46)
[2018-01-11] MEDS: morphine 4 MG/ML inj SYRINge IV PRN (07:59)
[2018-01-11] MEDS: MORPHINE SULFATE 10 MG PO SCH (08:00)
[2018-01-11] MEDS: carvedilol 6.25mg tablet PO SCH (08:02)
[2018-01-11] MEDS: lisinopril 2.5mg tablet PO SCH (08:04)
[2018-01-11] MEDS: pantoprazole 40mg Tablet.DR PO SCH (08:34)
[2018-01-11] MEDS: ipratropium/albuterol 3ml nebule IH PRN (10:46)
[2018-01-11 11:00] VITALS: BP 95/55
[2018-01-11] MEDS ORDERED: CEFE1FRO IV (11:12)
[2018-01-11 11:42] LABS: BASOPHILS % (AUTO) 0.1 % (0-1); EOSINOPHILS # (AUTO) 0.3 X10'3 (0-0.9); EOSINOPHILS % (AUTO) 1.5 % (0-6); HEMATOCRIT 25.7 % (35.0-45.0); HEMOGLOBIN 8.4 g/dl (12.0-16.0); LYMPHOCYTES # (AUTO) 1.1 X10'3 (1.1-4.8); LYMPHOCYTES % (AUTO) 6.1 % (21-51); MEAN CORPUSCULAR HEMOGLOBIN 27.6 PG (27.0-31.0); MEAN CORPUSCULAR HGB CONC 32.7 % (33.0-36.5); MEAN CORPUSCULAR VOLUME 84.5 FL (78-98); MEAN PLATELET VOLUME 7.7 FL (7.4-10.4); MONOCYTES # (AUTO) 0.3 X10'3 (0-0.9); MONOCYTES % (AUTO) 1.8 % (2-12); NEUTROPHILS % (AUTO) 90.5 % (42-75); PLATELET COUNT 430 X10'3 (140-440); RED BLOOD COUNT 3.05 X10'6 (4.20-5.60); WHITE BLOOD COUNT 17.7 X10'3 (4.5-11.0)
[2018-01-11 15:00] VITALS: BP 122/74
== END 2018-01-11 20:51 | disposition home health service (06) | DRG 720 ==
LOC: ER 18:52 → ED HOLD 22:58 → EDBEDREQ 23:11 → PCU 3S 23:48
PROVIDERS: ADMIT Family Medicine; ATTEND Internal Medicine
PROC: 0DB58ZX Excision of Esophagus, Via Natural or Artificial Opening Endoscopic, Diagnostic (ICD-10-PCS; 2018-01-09)
PROC: 0DB68ZX Excision of Stomach, Via Natural or Artificial Opening Endoscopic, Diagnostic (ICD-10-PCS; 2018-01-09)
PROC: 02HV33Z Insertion of Infusion Device into Superior Vena Cava, Percutaneous Approach (ICD-10-PCS; principal; 2018-01-11)
PROC: 4A02X4A Measurement of Cardiac Electrical Activity, Guidance, External Approach (ICD-10-PCS; 2018-01-11)
DX: A41.9 Sepsis, unspecified organism (principal); J96.21 Acute and chronic respiratory failure with hypoxia; J18.9 Pneumonia, unspecified organism; E87.2 Acidosis; J44.0 Chronic obstructive pulmonary disease with (acute) lower respiratory infection; B37.81 Candidal esophagitis; J44.1 Chronic obstructive pulmonary disease with (acute) exacerbation; I10 Essential (primary) hypertension; I25.2 Old myocardial infarction; I25.10 Atherosclerotic heart disease of native coronary artery without angina pectoris; E78.00 Pure hypercholesterolemia, unspecified; F32.9 Major depressive disorder, single episode, unspecified; F41.9 Anxiety disorder, unspecified; G89.29 Other chronic pain; K29.70 Gastritis, unspecified, without bleeding; K44.9 Diaphragmatic hernia without obstruction or gangrene; D50.9 Iron deficiency anemia, unspecified; Z87.891 Personal history of nicotine dependence; Z99.81 Dependence on supplemental oxygen; Z98.61 Coronary angioplasty status; Z79.899 Other long term (current) drug therapy; Z87.11 Personal history of peptic ulcer disease; Z94.2 Lung transplant status; Z88.1 Allergy status to other antibiotic agents
CPT/HCPCS: 36415; 36569; 43239; 71045; 71046; 76937; 80053; 80061; 81001; 82272; 83036; 83605; 83735; 83880; 84100; 84145; 85025; 85610; 85730; 87040; 87070; 93005; 94640; 94644; 94760; 96374; 97162; 97530; 99285; A4620; A6212; A6213; G0500; J0692; J2250; J2270; J2405; J2920; J2930; J3010; J7030; J7507; J7512; J7517

== ENCOUNTER 2018-01-18 20:43 | Emergency (ER) | payer MEDICAID ==
[~2018-01-18] VITALS: Ht 144.8 cm; Wt 29.6 kg
[~2018-01-18 20:43] MED LIST changes: +CEFE1FRO IV; +IRON-12; -PRED20TA PO; +PRED5TAB PO; -[UNRECOGNIZED DRUG - CODE] PO
[2018-01-18 21:53] LABS: BASOPHILS % (AUTO) 0.2 % (0-1); EOSINOPHILS # (AUTO) 0.3 X10'3 (0-0.9); EOSINOPHILS % (AUTO) 1.6 % (0-6); HEMATOCRIT 30.7 % (35.0-45.0); LYMPHOCYTES # (AUTO) 1.5 X10'3 (1.1-4.8); LYMPHOCYTES % (AUTO) 7.2 % (21-51); MEAN CORPUSCULAR HEMOGLOBIN 27.7 PG (27.0-31.0); MEAN CORPUSCULAR HGB CONC 32.5 % (33.0-36.5); MEAN PLATELET VOLUME 7.9 FL (7.4-10.4); MONOCYTES % (AUTO) 4.7 % (2-12); NEUTROPHILS # (AUTO) 17.6 X10'3 (1.8-7.7); NEUTROPHILS % (AUTO) 86.3 % (42-75); PLATELET COUNT 410 X10'3 (140-440); RED BLOOD COUNT 3.61 X10'6 (4.20-5.60); RED CELL DISTRIBUTION WIDTH 17.6 % (11.5-14.5); WHITE BLOOD COUNT 20.4 X10'3 (4.5-11.0)
[2018-01-18 22:08] LABS: PARTIAL THROMBOPLASTIN TIME 26 SECONDS (22-32); PROTHROMBIN TIME 10.1 SECONDS (9.0-12.0)
[2018-01-18 22:09] LABS: ALANINE AMINOTRANSFERASE 17 U/L (12-78); ALBUMIN/GLOBULIN RATIO 0.6 (1.1-1.5); ALKALINE PHOSPHATASE 82 IU/L (46-116); ANION GAP 8 (8-16); ASPARTATE AMINO TRANSFERASE 15 U/L (10-37); BILIRUBIN,TOTAL 0.2 MG/DL (0.1-1.0); BLOOD UREA NITROGEN 19 MG/DL (7-18); BUN/CREATININE RATIO 24.1 (6.6-38.0); CALCIUM 10.3 MG/DL (8.5-10.1); CHLORIDE 98 MMOL/L (99-107); CREATININE 0.79 MG/DL (0.40-0.90); GLUCOSE 162 MG/DL (70-104); POTASSIUM 3.7 MMOL/L (3.5-5.1); SODIUM 139 MMOL/L (135-145); TOTAL CARBON DIOXIDE 32.6 MMOL/L (24-32); TOTAL PROTEIN 8.2 G/DL (6.4-8.2); eGFR 75 ML/MIN
[2018-01-18] MEDS ORDERED: normal saline 1000ml 1,000 ML IV ONE (22:20)
[2018-01-18] MEDS ORDERED: aspirin 325mg tablet PO ONE (22:20)
[2018-01-18 22:22] LABS: ANISOCYTOSIS 2+; PLATELET ESTIMATE NORMAL; TOTAL CELLS COUNTED 100
[2018-01-18 22:23] LABS: TARGET CELLS FEW
[2018-01-18] MEDS ORDERED: iohexol 350MG/ML 100ml bottle IV ONE (22:30)
[2018-01-19] LABS: CLARITY,URINE CLEAR (Clear); COLOR,URINE YELLOW (Yellow); GLUCOSE, URINE NEGATIVE (Neg); KETONES,URINE NEGATIVE (Neg); LEUKOCYTE ESTERASE ,URINE NEGATIVE (Neg); NITRITES, URINE NEGATIVE (Neg); OCCULT BLOOD,URINE NEGATIVE (Neg); PROTEIN,URINE 30 mg/dl (Neg); UROBILINOGEN,URINE 0.2 E.U/dL (0.2-1.0)
[2018-01-19 00:02] LABS: UA COLLECTION TYPE CLN CATCH MIDSTREAM
[2018-01-19 00:05] LABS: BACTERIA,URINE FEW /HPF (Neg); MUCUS STRANDS FEW /LPF (Neg); RBC,URINE NONE SEEN /HPF (0-2); SQUAMOUS EPITHELIAL CELL,UR FEW /LPF (FEW); WBC,URINE 0-4 /HPF (0-4)
[2018-01-19 01:19] VITALS: BP 133/78
== END 2018-01-19 01:20 | disposition home or self-care (01) ==
LOC: ER 20:43
DX: R06.02 Shortness of breath (principal); I25.10 Atherosclerotic heart disease of native coronary artery without angina pectoris; J44.9 Chronic obstructive pulmonary disease, unspecified; I11.0 Hypertensive heart disease with heart failure; I50.9 Heart failure, unspecified; G89.29 Other chronic pain; I25.2 Old myocardial infarction; Z79.82 Long term (current) use of aspirin; Z88.1 Allergy status to other antibiotic agents; Z99.81 Dependence on supplemental oxygen; Z94.2 Lung transplant status
CPT/HCPCS: 36415; 71045; 71275; 80053; 81001; 83605; 84145; 84484; 85025; 85379; 85610; 85730; 87040; 93005; 99285; J7030; Q9967; 81003

== ENCOUNTER 2018-02-01 17:14 | Emergency (ER) | payer MEDICAID ==
[~2018-02-01] VITALS: Ht 139.7 cm; Wt 30.0 kg
[~2018-02-01 17:14] MED LIST changes: -CEFE1FRO IV; -MORP10CA11 PO
[2018-02-01 17:55] LABS: BASOPHILS % (AUTO) 0 % (0-1); EOSINOPHILS # (AUTO) 0.2 X10'3 (0-0.9); EOSINOPHILS % (AUTO) 1.5 % (0-6); HEMATOCRIT 25.3 % (35.0-45.0); HEMOGLOBIN 7.8 g/dl (12.0-16.0); LYMPHOCYTES # (AUTO) 0.4 X10'3 (1.1-4.8); LYMPHOCYTES % (AUTO) 2.2 % (21-51); MEAN CORPUSCULAR HGB CONC 30.9 % (33.0-36.5); MEAN CORPUSCULAR VOLUME 84.2 FL (78-98); MEAN PLATELET VOLUME 7.6 FL (7.4-10.4); MONOCYTES # (AUTO) 0.1 X10'3 (0-0.9); MONOCYTES % (AUTO) 0.8 % (2-12); NEUTROPHILS # (AUTO) 15.7 X10'3 (1.8-7.7); NEUTROPHILS % (AUTO) 95.5 % (42-75); PLATELET COUNT 478 X10'3 (140-440); RED CELL DISTRIBUTION WIDTH 18.2 % (11.5-14.5); WHITE BLOOD COUNT 16.4 X10'3 (4.5-11.0)
[2018-02-01 18:15] LABS: ANISOCYTOSIS 2+; HYPOCHROMASIA 1+; MICROCYTOSIS 1+; PLATELET ESTIMATE INCREASED; POIKILOCYTOSIS FEW; POLYCHROMASIA 1+
[2018-02-01 18:36] LABS: ALANINE AMINOTRANSFERASE 12 U/L (12-78); ALBUMIN 2.7 G/DL (3.4-5.0); ALBUMIN/GLOBULIN RATIO 0.6 (1.1-1.5); ALKALINE PHOSPHATASE 65 IU/L (46-116); ANION GAP 5 (8-16); ASPARTATE AMINO TRANSFERASE 13 U/L (10-37); BILIRUBIN,TOTAL 0.1 MG/DL (0.1-1.0); BLOOD UREA NITROGEN 22 MG/DL (7-18); CHLORIDE 101 MMOL/L (99-107); CREATININE 0.88 MG/DL (0.40-0.90); GLUCOSE 219 MG/DL (70-104); POTASSIUM 3.8 MMOL/L (3.5-5.1); SODIUM 140 MMOL/L (135-145); TOTAL CARBON DIOXIDE 34.2 MMOL/L (24-32); TOTAL PROTEIN 7.2 G/DL (6.4-8.2); eGFR 66 ML/MIN
[2018-02-01 19:02] VITALS: BP 146/77
[2018-02-01 21:59] LABS: OCCULT BLOOD STOOL NEGATIVE (Neg)
== END 2018-02-01 20:52 | disposition home or self-care (01) ==
LOC: ER 17:15
DX: D64.9 Anemia, unspecified (principal); R79.9 Abnormal finding of blood chemistry, unspecified; I25.10 Atherosclerotic heart disease of native coronary artery without angina pectoris; I11.0 Hypertensive heart disease with heart failure; I50.9 Heart failure, unspecified; I25.2 Old myocardial infarction; J44.9 Chronic obstructive pulmonary disease, unspecified; G89.29 Other chronic pain; Z98.890 Other specified postprocedural states; Z94.2 Lung transplant status; Z79.82 Long term (current) use of aspirin; Z79.899 Other long term (current) drug therapy; Z88.1 Allergy status to other antibiotic agents; Z95.5 Presence of coronary angioplasty implant and graft
CPT/HCPCS: 36415; 80053; 82272; 85025; 86885; 86900; 86901; 99284

== ENCOUNTER 2018-02-11 16:19 | Inpatient (IN) | payer MEDICAID ==
[~2018-02-11] VITALS: Ht 144.8 cm; Wt 50.0 kg
[2018-02-11] MEDS ORDERED: normal saline 1000ML IV soln IVB ONE (16:35)
[2018-02-11] MEDS ORDERED: ipratropium/albuterol 3ml nebule NEB ONE (16:35)
[2018-02-11] MEDS ORDERED: methylPREDNISolone sod succ 125mg/2ml vial IV ONE (16:35)
[2018-02-11] MEDS ORDERED: LORazepam 2 mg/ml vial IV ONE ×2 (17:15→19:35)
[2018-02-11] MEDS ORDERED: levoFLOXACIN-Levaquin 750MG/D5 150 ML IV STA (17:15)
[2018-02-11 17:21] LABS: BASOPHILS % (AUTO) 0.1 % (0-1); EOSINOPHILS # (AUTO) 0.2 X10'3 (0-0.9); EOSINOPHILS % (AUTO) 0.9 % (0-6); HEMATOCRIT 26.1 % (35.0-45.0); HEMOGLOBIN 8.2 g/dl (12.0-16.0); LYMPHOCYTES # (AUTO) 1.3 X10'3 (1.1-4.8); LYMPHOCYTES % (AUTO) 5.5 % (21-51); MEAN CORPUSCULAR HEMOGLOBIN 26.1 PG (27.0-31.0); MEAN CORPUSCULAR HGB CONC 31.3 % (33.0-36.5); MEAN CORPUSCULAR VOLUME 83.3 FL (78-98); MEAN PLATELET VOLUME 7.9 FL (7.4-10.4); MONOCYTES # (AUTO) 0.5 X10'3 (0-0.9); NEUTROPHILS # (AUTO) 20.9 X10'3 (1.8-7.7); NEUTROPHILS % (AUTO) 91.5 % (42-75); PLATELET COUNT 523 X10'3 (140-440); RED BLOOD COUNT 3.13 X10'6 (4.20-5.60); RED CELL DISTRIBUTION WIDTH 18.5 % (11.5-14.5); WHITE BLOOD COUNT 22.9 X10'3 (4.5-11.0)
[2018-02-11 17:42] LABS: PARTIAL THROMBOPLASTIN TIME 25 SECONDS (22-32); PROTHROMBIN TIME 10.2 SECONDS (9.0-12.0)
[2018-02-11 17:47] LABS: ALANINE AMINOTRANSFERASE 11 U/L (12-78); ALBUMIN 2.8 G/DL (3.4-5.0); ALBUMIN/GLOBULIN RATIO 0.5 (1.1-1.5); ALKALINE PHOSPHATASE 76 IU/L (46-116); ANION GAP 7 (8-16); ASPARTATE AMINO TRANSFERASE 15 U/L (10-37); BILIRUBIN,TOTAL 0.1 MG/DL (0.1-1.0); BLOOD UREA NITROGEN 15 MG/DL (7-18); BUN/CREATININE RATIO 20.8 (6.6-38.0); CALCIUM 9.8 MG/DL (8.5-10.1); CHLORIDE 102 MMOL/L (99-107); CREATININE 0.72 MG/DL (0.40-0.90); GLUCOSE 237 MG/DL (70-104); POTASSIUM 3.6 MMOL/L (3.5-5.1); SODIUM 144 MMOL/L (135-145); TOTAL CARBON DIOXIDE 34.7 MMOL/L (24-32); TOTAL PROTEIN 7.9 G/DL (6.4-8.2); eGFR 83 ML/MIN
[2018-02-11 17:54] LABS: ANISOCYTOSIS 2+; HYPOCHROMASIA 3+; PLATELET ESTIMATE INCREASED; POLYCHROMASIA 1+; TOTAL CELLS COUNTED 100
[2018-02-11 17:55] LABS: TARGET CELLS FEW
[2018-02-11] MEDS ORDERED: normal saline 1000ml 1,000 ML IV ONE ×2 (18:05)
[2018-02-11] MEDS ORDERED: bisacodyl 10mg suppository rectal RC PRN (19:55)
[2018-02-11] MEDS: levoFLOXACIN-Levaquin 500mg/D5 100 ML IV SCH (19:55)
[2018-02-11] MEDS ORDERED: morphine 4 MG/ML inj SYRINge IV PRN ×2 (19:55)
[2018-02-11] MEDS ORDERED: mag hydrox/Alum hydrox/simeth 30ml oral suspension PO PRN (19:55)
[2018-02-11] MEDS ORDERED: diphenhydrAMINE 25mg capsule PO PRN (19:55)
[2018-02-11] MEDS ORDERED: metoclopramide 5 mg/ml inj IV PRN (19:55)
[2018-02-11] MEDS ORDERED: magnesium hydroxide 30ml (MOM) UD suspension PO PRN (19:55)
[2018-02-11] MEDS ORDERED: HYDROcodone/acetaminophen 5mg/325mg tablet PO PRN (19:55)
[2018-02-11] MEDS ORDERED: acetaminophen 325mg tablet PO PRN ×2 (19:55)
[2018-02-11] MEDS ORDERED: acetaminophen 650mg rectal suppository RC PRN (19:55)
[2018-02-11] MEDS ORDERED: HYDROmorphone inj. 0.5 MG/0.5 ML DISP.SYRIN IV PRN ×2 (19:55)
[2018-02-11] MEDS ORDERED: diphenhydrAMINE 50 mg/ml inj IV PRN (19:55)
[2018-02-11] MEDS: docusate sod 100mg capsule PO SCH (20:00)
[2018-02-11] MEDS ORDERED: dextrose 50%-water 50ml dispensing syringe IV PRN ×2 (20:05)
[2018-02-11] MEDS ORDERED: insulin Lispro (HumaLOG) vial - multi-dose SQ SCH (20:05)
[2018-02-11] MEDS ORDERED: MESSAGE TO PHARMACY PO ONE (20:05)
[2018-02-11] MEDS ORDERED: glucagon, human recombinant 1mg kit SUBCUT PRN (20:05)
[2018-02-11] MEDS ORDERED: dextrose ORAL solution 15 GM/59 ML bottle PO PRN ×2 (20:05)
[2018-02-11 20:06] LABS: D-DIMER 2.15 MG/L FEU (0-0.50)
[2018-02-11] MEDS ORDERED: HYDROmorphone 1 mg/ml syringe IV PRN ×2 (20:07)
[2018-02-11] MEDS ORDERED: iohexol 350MG/ML 100ml bottle IV ONE (20:23)
[2018-02-11 20:34] LABS: LIPASE 97 U/L (73-393); MAGNESIUM 1.6 MG/DL (1.5-2.4); PHOSPHORUS 2.5 MG/DL (2.3-4.5)
[2018-02-11] MEDS ORDERED: temazepam 15mg capsule PO PRN (21:00)
[2018-02-11 21:55] LABS: ABG BASE EXCESS 5.2 mmol/L (-2.0-3.0); ABG HCO3 30.7 mmol/L (22.0-26.0); ABG OXYGEN SATURATION 94.7 % (95-98); ABG PCO2 (T) 49.7 mmHg (32.0-45.0); ABG PH (T) 7.406 (7.350-7.450); ABG PO2 (T) 73.5 mmHg (83-108); FCOHb 0.3 % (0.5-1.5); FMetHb 0.2 % (0.3-1.12); FO2Hb 94.2 % (94-100); MINUTE VOLUME 15 L/min; PATIENT TEMPERATURE 36.3; RESPIRATORY RATE 18 b/min; RESPIRATORY RATE (OBSERVED) 27 b/min; TOTAL HEMOGLOBIN 7.4 G/dl (12.0-16.0)
[2018-02-11 23:00] VITALS: BP 139/78
[2018-02-11] MEDS: ipratropium/albuterol 3ml nebule NEB PRN (23:18)
[2018-02-12] VITALS (14 sets, daily range): BP systolic 101–145; BP diastolic 60–86
[2018-02-12] MEDS: potassium Cl 20mEq in NS 1,000 ML IV SCH ×3 (02:05→17:41)
[2018-02-12] MEDS: ipratropium/albuterol 3ml nebule NEB PRN ×2 (03:25→23:08)
[2018-02-12 05:29] LABS: ALANINE AMINOTRANSFERASE 10 U/L (12-78); ALBUMIN 2.3 G/DL (3.4-5.0); ALBUMIN/GLOBULIN RATIO 0.5 (1.1-1.5); ALKALINE PHOSPHATASE 60 IU/L (46-116); ANION GAP 5 (8-16); ASPARTATE AMINO TRANSFERASE 13 U/L (10-37); BILIRUBIN,TOTAL 0.1 MG/DL (0.1-1.0); BLOOD UREA NITROGEN 11 MG/DL (7-18); BUN/CREATININE RATIO 17.2 (6.6-38.0); CALCIUM 8.5 MG/DL (8.5-10.1); CHLORIDE 104 MMOL/L (99-107); CREATININE 0.64 MG/DL (0.40-0.90); GLUCOSE 131 MG/DL (70-104); POTASSIUM 4.2 MMOL/L (3.5-5.1); SODIUM 142 MMOL/L (135-145); TOTAL CARBON DIOXIDE 32.6 MMOL/L (24-32); TOTAL PROTEIN 6.5 G/DL (6.4-8.2); eGFR > 90 ML/MIN
[2018-02-12 05:36] LABS: BASOPHILS % (AUTO) 0 % (0-1); EOSINOPHILS # (AUTO) 0.2 X10'3 (0-0.9); EOSINOPHILS % (AUTO) 1.6 % (0-6); LYMPHOCYTES # (AUTO) 0.6 X10'3 (1.1-4.8); LYMPHOCYTES % (AUTO) 5.9 % (21-51); MEAN CORPUSCULAR HEMOGLOBIN 27.2 PG (27.0-31.0); MEAN CORPUSCULAR HGB CONC 31.2 % (33.0-36.5); MONOCYTES % (AUTO) 0.3 % (2-12); NEUTROPHILS # (AUTO) 9.7 X10'3 (1.8-7.7); NEUTROPHILS % (AUTO) 92.2 % (42-75); PLATELET COUNT 392 X10'3 (140-440); RED CELL DISTRIBUTION WIDTH 18.2 % (11.5-14.5); WHITE BLOOD COUNT 10.5 X10'3 (4.5-11.0)
[2018-02-12 06:11] LABS: HEMATOCRIT 21.7 % (35.0-45.0); HEMOGLOBIN 6.8 g/dl (12.0-16.0)
[2018-02-12] MEDS: ipratropium/albuterol 3ml nebule NEB SCH ×4 (07:35→19:39)
[2018-02-12] MEDS ORDERED: ticagrelor 90mg tablet PO SCH (08:00)
[2018-02-12] MEDS ORDERED: non-formulary drug (Venlafaxine HCl (Effexor Xr) 1 CAP) PO SCH (08:00)
[2018-02-12] MEDS ORDERED: aspirin 81mg tablet.DR PO SCH (08:00)
[2018-02-12] MEDS ORDERED: non-formulary drug (Atorvastatin Calcium* (Lipitor*) 1 TABLET) PO SCH (08:00)
[2018-02-12 08:38] LABS: CLARITY,URINE CLEAR (Clear); COLOR,URINE YELLOW (Yellow); GLUCOSE, URINE NEGATIVE (Neg); KETONES,URINE NEGATIVE (Neg); LEUKOCYTE ESTERASE ,URINE NEGATIVE (Neg); NITRITES, URINE NEGATIVE (Neg); OCCULT BLOOD,URINE NEGATIVE (Neg); PH,URINE 6.5 (4.8-8.0); PROTEIN,URINE NEGATIVE (Neg); UROBILINOGEN,URINE 0.2 E.U/dL (0.2-1.0)
[2018-02-12 08:39] LABS: UA COLLECTION TYPE OTHER
[2018-02-12] MEDS: pantoprazole 40mg Tablet.DR PO SCH (08:47)
[2018-02-12] MEDS: levoFLOXACIN-Levaquin 500mg/D5 100 ML IV SCH (08:47)
[2018-02-12] MEDS: docusate sod 100mg capsule PO SCH ×2 (08:47→20:08)
[2018-02-12] MEDS: methylPREDNISolone sod succ 125mg/2ml vial IV SCH ×4 (08:47→23:01)
[2018-02-12] MEDS: folic acid 1mg tablet PO SCH (08:47)
[2018-02-12] MEDS: atorvastatin 20mg tablet PO SCH (08:48)
[2018-02-12] MEDS: carvedilol 6.25mg tablet PO SCH ×2 (08:48→20:08)
[2018-02-12] MEDS: venlafaxine XR 75mg capsule (Q24H) PO SCH (08:48)
[2018-02-12] MEDS: tacrolimus anhydrous 1mg capsule PO SCH ×2 (08:49→20:10)
[2018-02-12] MEDS: mycophenolate mofetil 250mg capsule PO SCH ×2 (08:49→20:10)
[2018-02-12] MEDS: fenofibrate 48mg tablet PO SCH (08:49)
[2018-02-12] MEDS: tacrolimus anhydrous 0.5mg capsule PO SCH (08:49)
[2018-02-12] MEDS: lisinopril 2.5mg tablet PO SCH (08:50)
[2018-02-12 10:18] LABS: % IRON SATURATION 7 % (11-46); IRON 19 UG/DL (49-151); TOTAL IRON BINDING CAPACITY 258 UG/DL (259-388)
[2018-02-12] MEDS: HYDROcodone/acetaminophen 10/325mg tab PO PRN ×2 (10:39→15:24)
[2018-02-12] MEDS: sulfamethoxazole/trimethoprim DS (800/160mg) tablet PO SCH (12:22)
[2018-02-12] MEDS: ondansetron/PF 4mg/2ml inj IV PRN (12:33)
[2018-02-12] MEDS ORDERED: MORP-64 PO (14:15)
[2018-02-12] MEDS: azithromycin 250mg tablet PO SCH (15:03)
[2018-02-12 20:01] LABS: BASOPHILS % (AUTO) 0 % (0-1); EOSINOPHILS % (AUTO) 0 % (0-6); LYMPHOCYTES # (AUTO) 0.8 X10'3 (1.1-4.8); LYMPHOCYTES % (AUTO) 4.4 % (21-51); MEAN CORPUSCULAR HEMOGLOBIN 27.3 PG (27.0-31.0); MEAN CORPUSCULAR HGB CONC 33.3 % (33.0-36.5); MEAN CORPUSCULAR VOLUME 82.1 FL (78-98); MEAN PLATELET VOLUME 7.7 FL (7.4-10.4); MONOCYTES # (AUTO) 0.1 X10'3 (0-0.9); MONOCYTES % (AUTO) 0.7 % (2-12); NEUTROPHILS # (AUTO) 17.4 X10'3 (1.8-7.7); NEUTROPHILS % (AUTO) 94.9 % (42-75); PLATELET COUNT 360 X10'3 (140-440); RED BLOOD COUNT 4.02 X10'6 (4.20-5.60); RED CELL DISTRIBUTION WIDTH 18.5 % (11.5-14.5); WHITE BLOOD COUNT 18.4 X10'3 (4.5-11.0)
[2018-02-12] MEDS: MORPHINE SULFATE 10 MG PO SCH (20:11)
[2018-02-13] MEDS: potassium Cl 20mEq in NS 1,000 ML IV SCH ×2 (01:56→11:53)
[2018-02-13] MEDS: ipratropium/albuterol 3ml nebule NEB PRN (02:48)
[2018-02-13 03:00] VITALS: BP 114/67
[2018-02-13 03:48] LABS: BASOPHILS % (AUTO) 0 % (0-1); EOSINOPHILS % (AUTO) 0 % (0-6); HEMATOCRIT 32.2 % (35.0-45.0); HEMOGLOBIN 10.3 g/dl (12.0-16.0); LYMPHOCYTES # (AUTO) 0.8 X10'3 (1.1-4.8); LYMPHOCYTES % (AUTO) 4.7 % (21-51); MEAN CORPUSCULAR HEMOGLOBIN 26.5 PG (27.0-31.0); MEAN CORPUSCULAR VOLUME 82.8 FL (78-98); MEAN PLATELET VOLUME 7.7 FL (7.4-10.4); MONOCYTES # (AUTO) 0.2 X10'3 (0-0.9); MONOCYTES % (AUTO) 1.2 % (2-12); NEUTROPHILS # (AUTO) 16.3 X10'3 (1.8-7.7); NEUTROPHILS % (AUTO) 94.1 % (42-75); PLATELET COUNT 363 X10'3 (140-440); RED BLOOD COUNT 3.89 X10'6 (4.20-5.60); RED CELL DISTRIBUTION WIDTH 19.2 % (11.5-14.5); WHITE BLOOD COUNT 17.3 X10'3 (4.5-11.0)
[2018-02-13 04:03] LABS: ALANINE AMINOTRANSFERASE 12 U/L (12-78); ALBUMIN 2.2 G/DL (3.4-5.0); ALBUMIN/GLOBULIN RATIO 0.6 (1.1-1.5); ALKALINE PHOSPHATASE 55 IU/L (46-116); ANION GAP 7 (8-16); ASPARTATE AMINO TRANSFERASE 17 U/L (10-37); BILIRUBIN,TOTAL 0.2 MG/DL (0.1-1.0); BLOOD UREA NITROGEN 19 MG/DL (7-18); BUN/CREATININE RATIO 26.4 (6.6-38.0); CALCIUM 7.8 MG/DL (8.5-10.1); CHLORIDE 104 MMOL/L (99-107); CREATININE 0.72 MG/DL (0.40-0.90); GLUCOSE 100 MG/DL (70-104); POTASSIUM 5.2 MMOL/L (3.5-5.1); SODIUM 139 MMOL/L (135-145); eGFR 83 ML/MIN
[2018-02-13 06:00] VITALS: BP 137/82
[2018-02-13] MEDS: ipratropium/albuterol 3ml nebule NEB SCH ×4 (07:15→19:46)
[2018-02-13] MEDS: azithromycin 250mg tablet PO SCH (08:16)
[2018-02-13] MEDS: fenofibrate 48mg tablet PO SCH (08:17)
[2018-02-13] MEDS: folic acid 1mg tablet PO SCH (08:18)
[2018-02-13] MEDS: atorvastatin 20mg tablet PO SCH (08:18)
[2018-02-13] MEDS: carvedilol 6.25mg tablet PO SCH ×2 (08:19→19:55)
[2018-02-13] MEDS: docusate sod 100mg capsule PO SCH ×2 (08:19→19:54)
[2018-02-13] MEDS: pantoprazole 40mg Tablet.DR PO SCH (08:19)
[2018-02-13] MEDS: lisinopril 2.5mg tablet PO SCH (08:20)
[2018-02-13] MEDS: venlafaxine XR 75mg capsule (Q24H) PO SCH (08:21)
[2018-02-13] MEDS: tacrolimus anhydrous 1mg capsule PO SCH ×2 (08:23→19:56)
[2018-02-13] MEDS: mycophenolate mofetil 250mg capsule PO SCH ×2 (08:23→19:54)
[2018-02-13] MEDS: tacrolimus anhydrous 0.5mg capsule PO SCH (08:24)
[2018-02-13] MEDS: MORPHINE SULFATE 10 MG PO SCH ×2 (08:24→19:55)
[2018-02-13] MEDS: levoFLOXACIN-Levaquin 500mg/D5 100 ML IV SCH (08:26)
[2018-02-13] MEDS: sulfamethoxazole/trimethoprim DS (800/160mg) tablet PO SCH ×2 (08:26→19:54)
[2018-02-13] MEDS: methylPREDNISolone sod succ 125mg/2ml vial IV SCH ×2 (08:27→16:04)
[2018-02-13] MEDS: ondansetron/PF 4mg/2ml inj IV PRN (08:34)
[2018-02-13] MEDS: sodium ferric gluc complex inj 125 MG in normal saline 100ml IV soln 100 ML IV SCH (10:47)
[2018-02-13 11:00] VITALS: BP 98/62
[2018-02-13 15:00] VITALS: BP 116/77
[2018-02-13 18:00] VITALS: BP 141/91
[2018-02-13 22:00] VITALS: BP 134/81
[2018-02-13 22:25] LABS: BASOPHILS % (AUTO) 0 % (0-1); EOSINOPHILS % (AUTO) 0 % (0-6); HEMATOCRIT 34.2 % (35.0-45.0); HEMOGLOBIN 11.1 g/dl (12.0-16.0); LYMPHOCYTES # (AUTO) 0.6 X10'3 (1.1-4.8); LYMPHOCYTES % (AUTO) 4.9 % (21-51); MEAN CORPUSCULAR HEMOGLOBIN 26.5 PG (27.0-31.0); MEAN CORPUSCULAR HGB CONC 32.6 % (33.0-36.5); MEAN CORPUSCULAR VOLUME 81.4 FL (78-98); MEAN PLATELET VOLUME 7.8 FL (7.4-10.4); MONOCYTES # (AUTO) 0.2 X10'3 (0-0.9); MONOCYTES % (AUTO) 1.4 % (2-12); NEUTROPHILS # (AUTO) 12.1 X10'3 (1.8-7.7); NEUTROPHILS % (AUTO) 93.7 % (42-75); PLATELET COUNT 387 X10'3 (140-440); RED CELL DISTRIBUTION WIDTH 18.9 % (11.5-14.5)
[2018-02-14] MEDS: methylPREDNISolone sod succ 125mg/2ml vial IV SCH ×3 (00:06→16:44)
[2018-02-14 02:00] VITALS: BP 139/81
[2018-02-14 06:00] VITALS: BP 143/87
[2018-02-14 06:21] LABS: BASOPHILS % (AUTO) 0 % (0-1); EOSINOPHILS % (AUTO) 0 % (0-6); HEMATOCRIT 37.2 % (35.0-45.0); HEMOGLOBIN 12.2 g/dl (12.0-16.0); LYMPHOCYTES # (AUTO) 0.6 X10'3 (1.1-4.8); LYMPHOCYTES % (AUTO) 4.3 % (21-51); MEAN CORPUSCULAR HGB CONC 32.8 % (33.0-36.5); MEAN CORPUSCULAR VOLUME 82.2 FL (78-98); MEAN PLATELET VOLUME 7.7 FL (7.4-10.4); MONOCYTES # (AUTO) 0.2 X10'3 (0-0.9); MONOCYTES % (AUTO) 1.5 % (2-12); NEUTROPHILS # (AUTO) 12.8 X10'3 (1.8-7.7); NEUTROPHILS % (AUTO) 94.2 % (42-75); PLATELET COUNT 420 X10'3 (140-440); RED BLOOD COUNT 4.52 X10'6 (4.20-5.60); RED CELL DISTRIBUTION WIDTH 18.8 % (11.5-14.5); WHITE BLOOD COUNT 13.6 X10'3 (4.5-11.0)
[2018-02-14 06:46] LABS: ALANINE AMINOTRANSFERASE 16 U/L (12-78); ALBUMIN 2.3 G/DL (3.4-5.0); ALBUMIN/GLOBULIN RATIO 0.6 (1.1-1.5); ALKALINE PHOSPHATASE 56 IU/L (46-116); ANION GAP 6 (8-16); ASPARTATE AMINO TRANSFERASE 21 U/L (10-37); BILIRUBIN,TOTAL 0.1 MG/DL (0.1-1.0); BLOOD UREA NITROGEN 21 MG/DL (7-18); CALCIUM 8.7 MG/DL (8.5-10.1); CHLORIDE 104 MMOL/L (99-107); GLUCOSE 96 MG/DL (70-104); POTASSIUM 5.3 MMOL/L (3.5-5.1); SODIUM 139 MMOL/L (135-145); eGFR 86 ML/MIN
[2018-02-14] MEDS: ipratropium/albuterol 3ml nebule NEB SCH ×4 (07:34→20:12)
[2018-02-14] MEDS: atorvastatin 20mg tablet PO SCH (09:05)
[2018-02-14] MEDS: pantoprazole 40mg Tablet.DR PO SCH (09:05)
[2018-02-14] MEDS: venlafaxine XR 75mg capsule (Q24H) PO SCH (09:05)
[2018-02-14] MEDS: sulfamethoxazole/trimethoprim DS (800/160mg) tablet PO SCH ×2 (09:06→20:46)
[2018-02-14] MEDS: fenofibrate 48mg tablet PO SCH (09:06)
[2018-02-14] MEDS: folic acid 1mg tablet PO SCH (09:06)
[2018-02-14] MEDS: carvedilol 6.25mg tablet PO SCH ×2 (09:06→20:46)
[2018-02-14] MEDS: docusate sod 100mg capsule PO SCH ×2 (09:07→20:46)
[2018-02-14] MEDS: tacrolimus anhydrous 0.5mg capsule PO SCH (09:16)
[2018-02-14] MEDS: MORPHINE SULFATE 10 MG PO SCH ×2 (09:17→20:46)
[2018-02-14] MEDS: sodium ferric gluc complex inj 125 MG in normal saline 100ml IV soln 100 ML IV SCH (09:17)
[2018-02-14] MEDS: tacrolimus anhydrous 1mg capsule PO SCH ×2 (10:23→20:46)
[2018-02-14] MEDS: mycophenolate mofetil 250mg capsule PO SCH ×2 (10:23→20:46)
[2018-02-14 11:00] VITALS: BP 140/85
[2018-02-14 15:00] VITALS: BP 130/74
[2018-02-14 18:00] VITALS: BP 142/85
[2018-02-14 22:00] VITALS: BP 122/77
[2018-02-15] MEDS: methylPREDNISolone sod succ 125mg/2ml vial IV SCH (00:10)
[2018-02-15 02:00] VITALS: BP 137/75
[2018-02-15 06:04] LABS: BASOPHILS % (AUTO) 0 % (0-1); EOSINOPHILS % (AUTO) 0.2 % (0-6); HEMATOCRIT 36.6 % (35.0-45.0); HEMOGLOBIN 11.9 g/dl (12.0-16.0); LYMPHOCYTES # (AUTO) 0.5 X10'3 (1.1-4.8); LYMPHOCYTES % (AUTO) 4.2 % (21-51); MEAN CORPUSCULAR HGB CONC 32.5 % (33.0-36.5); MEAN PLATELET VOLUME 7.8 FL (7.4-10.4); MONOCYTES # (AUTO) 0.3 X10'3 (0-0.9); NEUTROPHILS # (AUTO) 11.7 X10'3 (1.8-7.7); NEUTROPHILS % (AUTO) 93.6 % (42-75); PLATELET COUNT 378 X10'3 (140-440); RED BLOOD COUNT 4.41 X10'6 (4.20-5.60); RED CELL DISTRIBUTION WIDTH 18.6 % (11.5-14.5); WHITE BLOOD COUNT 12.5 X10'3 (4.5-11.0)
[2018-02-15 06:28] LABS: ALANINE AMINOTRANSFERASE 12 U/L (12-78); ALBUMIN 2.5 G/DL (3.4-5.0); ALBUMIN/GLOBULIN RATIO 0.7 (1.1-1.5); ALKALINE PHOSPHATASE 57 IU/L (46-116); ANION GAP 3 (8-16); ASPARTATE AMINO TRANSFERASE 19 U/L (10-37); BILIRUBIN,TOTAL 0.1 MG/DL (0.1-1.0); BLOOD UREA NITROGEN 19 MG/DL (7-18); BUN/CREATININE RATIO 24.7 (6.6-38.0); CHLORIDE 102 MMOL/L (99-107); CREATININE 0.77 MG/DL (0.40-0.90); GLUCOSE 117 MG/DL (70-104); POTASSIUM 4.8 MMOL/L (3.5-5.1); SODIUM 139 MMOL/L (135-145); TOTAL CARBON DIOXIDE 33.6 MMOL/L (24-32); TOTAL PROTEIN 6.1 G/DL (6.4-8.2); eGFR 77 ML/MIN
[2018-02-15 07:04] VITALS: BP 148/80
[2018-02-15] MEDS: ipratropium/albuterol 3ml nebule NEB SCH ×4 (07:55→20:16)
[2018-02-15] MEDS: pantoprazole 40mg Tablet.DR PO SCH (08:44)
[2018-02-15] MEDS: sulfamethoxazole/trimethoprim DS (800/160mg) tablet PO SCH ×2 (08:44→19:32)
[2018-02-15] MEDS: folic acid 1mg tablet PO SCH (08:44)
[2018-02-15] MEDS: fenofibrate 48mg tablet PO SCH (08:44)
[2018-02-15] MEDS: carvedilol 6.25mg tablet PO SCH ×2 (08:44→19:32)
[2018-02-15] MEDS: mycophenolate mofetil 250mg capsule PO SCH ×2 (08:44→19:32)
[2018-02-15] MEDS: docusate sod 100mg capsule PO SCH ×2 (08:44→19:32)
[2018-02-15] MEDS: tacrolimus anhydrous 0.5mg capsule PO SCH (08:45)
[2018-02-15] MEDS: atorvastatin 20mg tablet PO SCH (08:45)
[2018-02-15] MEDS: venlafaxine XR 75mg capsule (Q24H) PO SCH (08:45)
[2018-02-15] MEDS: tacrolimus anhydrous 1mg capsule PO SCH ×2 (08:45→19:31)
[2018-02-15] MEDS: predniSONE 20 mg tablet PO SCH (08:52)
[2018-02-15] MEDS: sodium ferric gluc complex inj 125 MG in normal saline 100ml IV soln 100 ML IV SCH (08:54)
[2018-02-15] MEDS: ondansetron/PF 4mg/2ml inj IV PRN (09:27)
[2018-02-15] MEDS: MORPHINE SULFATE 10 MG PO SCH ×2 (09:27→19:32)
[2018-02-15 11:37] VITALS: BP 128/78
[2018-02-15 15:58] VITALS: BP 137/80
[2018-02-15 19:00] VITALS: BP 160/85
[2018-02-15 23:00] VITALS: BP 123/74
[2018-02-16 03:00] VITALS: BP 148/83
[2018-02-16 05:46] LABS: BASOPHILS % (AUTO) 0.2 % (0-1); EOSINOPHILS % (AUTO) 0.2 % (0-6); HEMATOCRIT 37.7 % (35.0-45.0); HEMOGLOBIN 12.4 g/dl (12.0-16.0); LYMPHOCYTES # (AUTO) 1.5 X10'3 (1.1-4.8); LYMPHOCYTES % (AUTO) 9.4 % (21-51); MEAN CORPUSCULAR HEMOGLOBIN 26.9 PG (27.0-31.0); MEAN CORPUSCULAR HGB CONC 32.8 % (33.0-36.5); MEAN PLATELET VOLUME 8.1 FL (7.4-10.4); NEUTROPHILS # (AUTO) 13.9 X10'3 (1.8-7.7); NEUTROPHILS % (AUTO) 84.2 % (42-75); PLATELET COUNT 399 X10'3 (140-440); RED CELL DISTRIBUTION WIDTH 18.8 % (11.5-14.5); WHITE BLOOD COUNT 16.5 X10'3 (4.5-11.0)
[2018-02-16 06:37] VITALS: BP 142/82
[2018-02-16 06:39] LABS: ALANINE AMINOTRANSFERASE 15 U/L (12-78); ALBUMIN 2.7 G/DL (3.4-5.0); ALBUMIN/GLOBULIN RATIO 0.7 (1.1-1.5); ALKALINE PHOSPHATASE 63 IU/L (46-116); ANION GAP 2 (8-16); ASPARTATE AMINO TRANSFERASE 22 U/L (10-37); BILIRUBIN,TOTAL 0.1 MG/DL (0.1-1.0); BLOOD UREA NITROGEN 14 MG/DL (7-18); BUN/CREATININE RATIO 22.6 (6.6-38.0); CALCIUM 9.5 MG/DL (8.5-10.1); CHLORIDE 99 MMOL/L (99-107); CREATININE 0.62 MG/DL (0.40-0.90); GLUCOSE 70 MG/DL (70-104); POTASSIUM 4.3 MMOL/L (3.5-5.1); SODIUM 140 MMOL/L (135-145); TOTAL CARBON DIOXIDE 39.5 MMOL/L (24-32); TOTAL PROTEIN 6.4 G/DL (6.4-8.2); eGFR > 90 ML/MIN
[2018-02-16] MEDS: ipratropium/albuterol 3ml nebule NEB SCH ×5 (06:51→19:23)
[2018-02-16] MEDS: predniSONE 20 mg tablet PO SCH (08:39)
[2018-02-16] MEDS: carvedilol 6.25mg tablet PO SCH ×2 (08:39→19:31)
[2018-02-16] MEDS: docusate sod 100mg capsule PO SCH ×2 (08:39→19:32)
[2018-02-16] MEDS: tacrolimus anhydrous 0.5mg capsule PO SCH (08:39)
[2018-02-16] MEDS: atorvastatin 20mg tablet PO SCH (08:39)
[2018-02-16] MEDS: sulfamethoxazole/trimethoprim DS (800/160mg) tablet PO SCH ×2 (08:39→19:31)
[2018-02-16] MEDS: venlafaxine XR 75mg capsule (Q24H) PO SCH (08:39)
[2018-02-16] MEDS: pantoprazole 40mg Tablet.DR PO SCH (08:39)
[2018-02-16] MEDS: fenofibrate 48mg tablet PO SCH (08:39)
[2018-02-16] MEDS: tacrolimus anhydrous 1mg capsule PO SCH ×2 (08:39→19:31)
[2018-02-16] MEDS: mycophenolate mofetil 250mg capsule PO SCH ×2 (08:39→19:32)
[2018-02-16] MEDS: folic acid 1mg tablet PO SCH (08:39)
[2018-02-16] MEDS: MORPHINE SULFATE 10 MG PO SCH ×2 (08:40→19:32)
[2018-02-16] MEDS: sodium ferric gluc complex inj 125 MG in normal saline 100ml IV soln 100 ML IV SCH (09:57)
[2018-02-16 12:35] VITALS: BP 106/68
[2018-02-16] MEDS: ipratropium/albuterol 3ml nebule NEB PRN (16:56)
[2018-02-16 17:00] VITALS: BP 124/81
[2018-02-16 18:00] VITALS: BP 136/79
[2018-02-16] MEDS: lactobacillus rhamnosus 10,000 MMU CELLS/CAPSULE PO SCH (19:31)
[2018-02-16 22:30] VITALS: BP 112/75
[2018-02-17 03:37] VITALS: BP 123/60
[2018-02-17 06:00] VITALS: BP 134/77
[2018-02-17] MEDS: ipratropium/albuterol 3ml nebule NEB PRN (07:28)
[2018-02-17] MEDS: ondansetron/PF 4mg/2ml inj IV PRN ×2 (08:49→19:41)
[2018-02-17] MEDS: lactobacillus rhamnosus 10,000 MMU CELLS/CAPSULE PO SCH (08:55)
[2018-02-17] MEDS: carvedilol 6.25mg tablet PO SCH ×2 (08:55→19:41)
[2018-02-17] MEDS: mycophenolate mofetil 250mg capsule PO SCH ×2 (08:55→19:42)
[2018-02-17] MEDS: docusate sod 100mg capsule PO SCH ×2 (08:56→19:42)
[2018-02-17] MEDS: predniSONE 20 mg tablet PO SCH (08:56)
[2018-02-17] MEDS: pantoprazole 40mg Tablet.DR PO SCH (08:56)
[2018-02-17] MEDS: atorvastatin 20mg tablet PO SCH (08:56)
[2018-02-17] MEDS: folic acid 1mg tablet PO SCH (08:56)
[2018-02-17] MEDS: venlafaxine XR 75mg capsule (Q24H) PO SCH (08:56)
[2018-02-17] MEDS: tacrolimus anhydrous 1mg capsule PO SCH ×2 (08:56→19:42)
[2018-02-17] MEDS: fenofibrate 48mg tablet PO SCH (08:56)
[2018-02-17] MEDS: tacrolimus anhydrous 0.5mg capsule PO SCH (08:56)
[2018-02-17] MEDS: sulfamethoxazole/trimethoprim DS (800/160mg) tablet PO SCH ×2 (08:56→19:41)
[2018-02-17] MEDS: MORPHINE SULFATE 10 MG PO SCH ×2 (09:26→19:43)
[2018-02-17] MEDS: sodium ferric gluc complex inj 125 MG in normal saline 100ml IV soln 100 ML IV SCH (09:27)
[2018-02-17] MEDS: ipratropium/albuterol 3ml nebule NEB SCH ×4 (10:35→19:20)
[2018-02-17 11:00] VITALS: BP 115/66
[2018-02-17 15:00] VITALS: BP 103/64
[2018-02-17 19:00] VITALS: BP 133/73
[2018-02-17 23:00] VITALS: BP 117/77
[2018-02-18 03:00] VITALS: BP 139/77
[2018-02-18 07:00] VITALS: BP 133/80
[2018-02-18] MEDS: ipratropium/albuterol 3ml nebule NEB SCH ×2 (07:10→10:42)
[2018-02-18] MEDS: venlafaxine XR 75mg capsule (Q24H) PO SCH (08:11)
[2018-02-18] MEDS: predniSONE 20 mg tablet PO SCH (08:11)
[2018-02-18] MEDS: sulfamethoxazole/trimethoprim DS (800/160mg) tablet PO SCH (08:11)
[2018-02-18] MEDS: MORPHINE SULFATE 10 MG PO SCH (08:11)
[2018-02-18] MEDS: mycophenolate mofetil 250mg capsule PO SCH (08:11)
[2018-02-18] MEDS: carvedilol 6.25mg tablet PO SCH (08:11)
[2018-02-18] MEDS: atorvastatin 20mg tablet PO SCH (08:11)
[2018-02-18] MEDS: folic acid 1mg tablet PO SCH (08:11)
[2018-02-18] MEDS: tacrolimus anhydrous 1mg capsule PO SCH (08:11)
[2018-02-18] MEDS: fenofibrate 48mg tablet PO SCH (08:11)
[2018-02-18] MEDS: docusate sod 100mg capsule PO SCH (08:11)
[2018-02-18] MEDS: tacrolimus anhydrous 0.5mg capsule PO SCH (08:11)
[2018-02-18] MEDS: pantoprazole 40mg Tablet.DR PO SCH (08:12)
[2018-02-18] MEDS: sodium ferric gluc complex inj 125 MG in normal saline 100ml IV soln 100 ML IV SCH (08:12)
[2018-02-18] MEDS ORDERED: BACDS PO (09:21)
[2018-02-18] MEDS ORDERED: PRED20TA PO (09:21)
[2018-02-18] MEDS ORDERED: TICA90TA PO ×2 (09:34→09:35)
== END 2018-02-18 12:30 | disposition home or self-care (01) | DRG 720 ==
LOC: ER 16:20 → CANBEDREQ 18:57 → ED HOLD 19:53 → PCU 3S 20:50
PROVIDERS: ADMIT Family Medicine; ATTEND Family Medicine
PROC: 5A09357 Assistance with Respiratory Ventilation, Less than 24 Consecutive Hours, Continuous Positive Airway Pressure (ICD-10-PCS; principal; 2018-02-11)
PROC: B32T1ZZ Computerized Tomography (CT Scan) of Left Pulmonary Artery using Low Osmolar Contrast (ICD-10-PCS; 2018-02-11)
PROC: B3201ZZ Computerized Tomography (CT Scan) of Thoracic Aorta using Low Osmolar Contrast (ICD-10-PCS; 2018-02-11)
PROC: B32S1ZZ Computerized Tomography (CT Scan) of Right Pulmonary Artery using Low Osmolar Contrast (ICD-10-PCS; 2018-02-11)
PROC: 5A09357 Assistance with Respiratory Ventilation, Less than 24 Consecutive Hours, Continuous Positive Airway Pressure (ICD-10-PCS; 2018-02-12)
PROC: 30233N1 Transfusion of Nonautologous Red Blood Cells into Peripheral Vein, Percutaneous Approach (ICD-10-PCS; 2018-02-12)
PROC: 5A09357 Assistance with Respiratory Ventilation, Less than 24 Consecutive Hours, Continuous Positive Airway Pressure (ICD-10-PCS; 2018-02-13)
DX: A41.9 Sepsis, unspecified organism (principal); J96.11 Chronic respiratory failure with hypoxia; I11.0 Hypertensive heart disease with heart failure; E87.2 Acidosis; Z94.2 Lung transplant status; J18.9 Pneumonia, unspecified organism; I50.9 Heart failure, unspecified; Z99.81 Dependence on supplemental oxygen; E78.5 Hyperlipidemia, unspecified; D64.9 Anemia, unspecified; F32.9 Major depressive disorder, single episode, unspecified; I25.10 Atherosclerotic heart disease of native coronary artery without angina pectoris; I25.2 Old myocardial infarction; J44.0 Chronic obstructive pulmonary disease with (acute) lower respiratory infection; F41.9 Anxiety disorder, unspecified; G89.29 Other chronic pain; R73.9 Hyperglycemia, unspecified; J44.1 Chronic obstructive pulmonary disease with (acute) exacerbation; Z79.52 Long term (current) use of systemic steroids; Z79.82 Long term (current) use of aspirin; Z79.899 Other long term (current) drug therapy; Z95.5 Presence of coronary angioplasty implant and graft; Z88.1 Allergy status to other antibiotic agents
CPT/HCPCS: 36415; 36600; 71045; 71275; 80053; 81003; 82607; 82746; 82803; 82948; 83540; 83550; 83605; 83690; 83735; 83880; 84100; 84145; 84484; 85018; 85025; 85379; 85610; 85730; 86644; 86870; 86885; 86900; 86901; 86922; 86945; 87040; 87070; 93005; 94640; 94660; 94760; 96365; 96366; 96375; 96376; 99285; A6212; A6213; J1956; J2060; J2405; J2916; J2930; J7030; J7507; J7512; J7517; P9016; Q9967